=== PATIENT | female | born 1940 | race Caucasian/White ===

== ENCOUNTER 2020-02-19 12:50 | Outpatient (REF) | payer MEDICARE, SELFPAY ==
--- NOTE | 2020-02-19 | MM_ITS ---
EXAMINATION: MM SCREENING DIGITAL BREAST TOMOSYNTHESIS, BILATERAL CLINICAL INFORMATION: Screening. Asymptomatic. The lifetime risk of breast cancer based on the Tyrer-Cuzick Model is 2%. COMPARISON: Mammography: 02/13/2019, 11/19/2017, 11/14/2016 TECHNIQUE: Digital breast tomosynthesis is performed in both the craniocaudal and mediolateral oblique views along with computer-aided detection (CAD). Synthesized 2D images are generated from the tomosynthesis. Additional left cleavage view is provided. FINDINGS: There are scattered areas of fibroglandular density (ACR BI-RADS breast composition Category b). There are no significant masses, abnormal calcifications, or other abnormalities. There is a dermal lesion overlying the outer left breast similar to previous study. There are scattered bilateral vascular and benign round calcifications. No significant changes. IMPRESSION: No mammographic evidence of malignancy. ASSESSMENT: BI-RADS 2: Benign RECOMMENDATION: Routine annual mammography screening. This patient's information was entered into a reminder system with a target due date for their next mammogram.
== END 2020-02-19 12:51 | disposition home or self-care (01) ==
LOC: HO.MAMMO 12:50
PROVIDERS: PCP Internal Medicine; Visit Provider Internal Medicine
DX: Z12.31 Encounter for screening mammogram for malignant neoplasm of breast (principal)
CPT/HCPCS: 77063; 77067; 78014

== ENCOUNTER 2020-07-08 11:27 | Outpatient (REF) | payer MEDICARE, SELFPAY ==
[2020-07-08 13:29] LABS: Alanine Aminotransferase 9 U/L (0-31); Albumin Level 4.2 g/dL (3.5-5.0); Alkaline Phosphatase 116 U/L (39-117); Aspartate Amino Transferase 14 U/L (5-31); Bilirubin Direct 0.3 mg/dL (0.0-0.5); Bilirubin Total 0.8 mg/dL (0.0-1.0); Cholesterol 152 mg/dL; Glucose Fasting 99 mg/dL (60-99); HDL Cholesterol 44 mg/dL; LDL Cholesterol Calculated 92 mg/dl; Total Protein 6.9 g/dL (6.5-8.0); Triglycerides 82 mg/dL
[2020-07-08 13:53] LABS: Estimated Average Glucose 108 mg/dL; Hemoglobin A1c % 5.4 %; Reflex LDLD? No
== END 2020-07-08 11:28 | disposition home or self-care (01) ==
LOC: HO.LNP 11:27
PROVIDERS: PCP Internal Medicine; Visit Provider Internal Medicine
DX: R73.03 Prediabetes (principal)
CPT/HCPCS: 80061; 80076; 82947; 83036

== ENCOUNTER 2020-12-27 11:09 | Outpatient (REF) | payer MEDICARE, SELFPAY ==
[2020-12-27 11:15] LABS: MANUAL DIFF FLAG NO
[2020-12-27 11:41] LABS: Basophils Percent Auto 0.5 % (0-2); Eosinophils Absolute Auto 0.3 X10*3/uL (0.0-0.4); Eosinophils Percent Auto 4.5 % (0-4); Hematocrit 39.7 % (37-47); Hemoglobin 11.8 g/dl (12.0-16.0); Imm Gran Abs Auto 0.02 X10*3/uL (0.00-0.03); Imm Gran Pct Auto 0.3 % (0.0-0.4); Lymphocytes Absolute Auto 1.4 X10*3/uL (1.2-4.9); Lymphocytes Percent Auto 22.2 % (20-40); Mean Corpuscular HGB Conc 29.7 g/dl (31.0-35.0); Mean Corpuscular Hemoglobin 26.7 pg (27.0-33.0); Mean Corpuscular Volume 89.8 fL (80-98); Mean Platelet Volume 10.1 fL (9.4-12.3); Monocytes Absolute Auto 0.6 X10*3/uL (0.1-1.2); Monocytes Percent Auto 8.8 % (2-11); Neutrophils Absolute Auto 4.2 X10*3/uL (2.0-8.3); Neutrophils Percent Auto 63.7 % (45-73); Platelet Count 366 X10*3/uL (160-400); Red Blood Count 4.42 X10*6/uL (4.20-5.50); Red Cell Distribution Width 14.2 % (11.0-16.0); White Blood Count 6.5 X10*3/uL (4.8-10.8)
[2020-12-27 12:04] LABS: Alanine Aminotransferase 9 U/L (0-31); Alkaline Phosphatase 109 U/L (39-117); Anion Gap 13 (12-20); Aspartate Amino Transferase 14 U/L (5-31); Bilirubin Total 0.4 mg/dL (0.0-1.0); Blood Urea Nitrogen 16 mg/dL (9-16); Calcium 9.5 mg/dL (8.4-10.2); Carbon Dioxide 29 mmol/L (22-29); Chloride 104 mmol/L (96-108); Cholesterol 148 mg/dL; Estimated Glomerular Filt Rate > 60; Glucose Fasting 101 mg/dL (60-99); HDL Cholesterol 46 mg/dL; LDL Cholesterol Calculated 83 mg/dl; Potassium 4.6 mmol/L (3.3-5.1); Sodium 141 mmol/L (135-145); Total Protein 6.8 g/dL (6.5-8.0); Triglycerides 95 mg/dL
[2020-12-27 12:14] LABS: Estimated Average Glucose 114 mg/dL; Hemoglobin A1c % 5.6 %
[2020-12-27 12:17] LABS: Vitamin D 25-OH Total 24.8 ng/mL (>30)
[2020-12-27 12:27] LABS: Reflex LDLD? No
[2020-12-27 12:28] LABS: Glucose Urine UA NEG (NEG); Leukocyte Esterase Urine 3+ (NEG); Nitrite Urine NEG (NEG); Specific Gravity - Urine 1.025 (1.005-1.025); Urine Blood TRACE (NEG); Urine Ketones NEG (NEG); Urine Protein NEG (NEG-TRACE)
[2020-12-27 12:40] LABS: Appearance Urine CLOUDY; Color Urine YELLOW
[2020-12-27 12:47] LABS: Microalbum/Creatinine Ratio Ur 20.7 ug/mg cr
[2020-12-27 12:55] LABS: Bacteria Urine 2+ /LPF; Mucus Urine 1+ /LPF; Squamous Epithelial Cell Urine 2+ /LPF; WBC Urine 50-75 /HPF (0-4)
== END 2020-12-27 11:10 | disposition home or self-care (01) ==
LOC: HO.LNP 11:09
PROVIDERS: Visit Provider Internal Medicine
DX: Z00.00 Encounter for general adult medical examination without abnormal findings (principal); R73.03 Prediabetes; E55.9 Vitamin D deficiency, unspecified
CPT/HCPCS: 80053; 80061; 81001; 81003; 82043; 82306; 83036; 85025

== ENCOUNTER 2021-03-03 08:13 | Outpatient (REF) | payer MEDICARE, SELFPAY ==
--- NOTE | ~2021-03-03 | MM_ITS ---
EXAMINATION: BONE DENSITOMETRY CLINICAL INDICATION: Osteoporosis. COMPARISON: Previous BD dated 02/04/2019 and baseline BD dated 03/31/2011. TECHNIQUE: Using a [employer] DXA System (software version: 13.1) manufactured by [employer], dual-energy x-ray absorptiometry was performed of the lumbar spine and left hip. The images are of good technical quality. Summary results are attached. FINDINGS: AP SPINE L1-L4: Current: BMD 0.908 g/cm2, Z-score -0.2, T-score -2.3, osteopenia, 5.9% decrease from previous, 5.6% decrease from baseline (<5% change is not significant). Prior: BMD 0.965 g/cm2. Baseline: BMD 0.962 g/cm2. LEFT FEMUR, NECK: Current: BMD 0.533 g/cm2, Z-score -1.3, T-score -3.6, osteoporosis. Prior: BMD 0.632 g/cm2. Baseline: BMD 0.683 g/cm2. LEFT FEMUR, TOTAL: Current: BMD 0.605 g/cm2, Z-score -1.0, T-score -3.2, osteoporosis, 13.4% decrease from previous, 24.0% decrease from baseline (<5% change is not significant). Prior: BMD 0.699 g/cm2. Baseline: BMD 0.796 g/cm2. IDENTIFIED RISK FACTORS: Early menopause, secondary osteoporosis, hysterectomy, bilateral oophorectomy. HISTORY OF FRACTURE: None listed. MEDICATIONS: None listed. MM/XR DEXA axial skeleton IMPRESSION: 1. DIAGNOSIS: Osteoporosis based on the lowest T-score value of -3.6 in the femoral neck applying World Health Organization criteria. 2. 10-YEAR FRACTURE RISK PREDICTION, FRAX: Major osteoporotic fracture (clinical spine, forearm, hip or shoulder) 32.8%. Hip fracture 16.3%. 3. Treatment Recommendations: NOF guidelines recommend consideration for treatment in postmenopausal women and men age 50 and older presenting with the following: -A hip or vertebral (clinical or morphometric) fracture. -T-score less than or equal to -2.5 at the femoral neck or spine after appropriate evaluation to exclude secondary causes. -Low bone mass at the hip or spine and a 10-year fracture probability by FRAX of greater than or equal to 3% for hip fracture or greater than or equal to 20% for major osteoporotic fracture based on the [place] adapted WHO algorithm. 4. Other Recommendations: All treatment decisions require clinical judgment and consideration of individual patient factors, including patient preferences, comorbidities, previous drug use, risk factors not captured in the FRAX model (e.g. frailty, falls, vitamin D deficiency, increased bone turnover, interval significant decline in bone density) and possible under or overestimation of fracture risk by FRAX. Additional medical evaluation for secondary cause of low bone mineral density may be appropriate. FUTURE SCAN RECOMMENDATION: People with diagnosed cases of osteoporosis or at high risk for fracture should have regular bone mineral density tests. For patients eligible for Medicare, routine testing is allowed once every 2 years. The testing frequency can be increased to one year for patients who have rapidly progressing disease, those who are receiving or discontinuing medical therapy to restore bone mass, or have additional risk factors.
--- NOTE | ~2021-03-03 | MM_ITS ---
EXAMINATION: MM SCREENING DIGITAL BREAST TOMOSYNTHESIS, BILATERAL CLINICAL INFORMATION: Screening. Asymptomatic. The lifetime risk of breast cancer based on the Tyrer-Cuzick Model is 1%. COMPARISON: Mammography: 02/19/2020, 02/13/2019, 11/19/2017 TECHNIQUE: Digital breast tomosynthesis is performed in both the craniocaudal and mediolateral oblique views along with computer-aided detection (CAD). Synthesized 2D images are generated from the tomosynthesis. Additional left CC view is provided. FINDINGS: There are scattered areas of fibroglandular density (ACR BI-RADS breast composition Category b). Parenchymal pattern is similar to prior studies. There is no interval mass or developing density or architectural abnormality. There is a probable faint dermal lesion overlying the lower outer left breast similar to prior studies. Small circumscribed nodular asymmetry anterior upper right breast on MLO view is also stable. The axilla are unremarkable. There are scattered benign round and vascular calcifications. No significant changes. MM/MM tomosynthesis screening BI IMPRESSION: No mammographic evidence of malignancy. ASSESSMENT: BI-RADS 2: Benign RECOMMENDATION: Routine annual mammography screening. This patient's information was entered into a reminder system with a target due date for their next mammogram.
== END 2021-03-03 08:14 | disposition home or self-care (01) ==
LOC: HO.MAMMO 08:13
PROVIDERS: Visit Provider Internal Medicine
DX: Z12.31 Encounter for screening mammogram for malignant neoplasm of breast (principal); Z13.820 Encounter for screening for osteoporosis; M81.0 Age-related osteoporosis without current pathological fracture; Z78.0 Asymptomatic menopausal state; Z98.890 Other specified postprocedural states
CPT/HCPCS: 77063; 77067; 77080

== ENCOUNTER 2021-07-01 10:47 | Outpatient (REF) | payer MEDICARE, SELFPAY ==
[2021-07-01 12:23] LABS: Estimated Average Glucose 114 mg/dL; Hemoglobin A1c % 5.6 %
[2021-07-01 12:26] LABS: Alanine Aminotransferase 7 U/L (0-31); Albumin Level 3.9 g/dL (3.5-5.0); Alkaline Phosphatase 107 U/L (39-117); Aspartate Amino Transferase 14 U/L (5-31); Bilirubin Direct 0.3 mg/dL (0.0-0.5); Bilirubin Total 0.6 mg/dL (0.0-1.0); Cholesterol 149 mg/dL; Glucose Fasting 99 mg/dL (60-99); HDL Cholesterol 46 mg/dL; LDL Cholesterol Calculated 88 mg/dl; Total Protein 6.7 g/dL (6.5-8.0); Triglycerides 79 mg/dL
[2021-07-01 13:28] LABS: Reflex LDLD? No
== END 2021-07-01 10:48 | disposition home or self-care (01) ==
LOC: HO.LNP 10:47
PROVIDERS: Visit Provider Internal Medicine
DX: R73.03 Prediabetes (principal)
CPT/HCPCS: 80061; 80076; 82947; 83036

== ENCOUNTER 2022-02-06 14:53 | Outpatient (REF) | payer MEDICARE, SELFPAY ==
[2022-02-06 15:25] LABS: MANUAL DIFF FLAG NO
[2022-02-06 15:31] LABS: Basophils Percent Auto 0.4 % (0-2); Eosinophils Absolute Auto 0.2 X10*3/uL (0.0-0.4); Eosinophils Percent Auto 3.1 % (0-4); Hemoglobin 11.5 g/dl (12.0-16.0); Imm Gran Abs Auto 0.01 X10*3/uL (0.00-0.03); Imm Gran Pct Auto 0.1 % (0.0-0.4); Lymphocytes Absolute Auto 1.2 X10*3/uL (1.2-4.9); Lymphocytes Percent Auto 16.6 % (20-40); Mean Corpuscular HGB Conc 31.1 g/dl (31.0-35.0); Mean Corpuscular Hemoglobin 27.2 pg (27.0-33.0); Mean Corpuscular Volume 87.5 fL (80.0-98.0); Mean Platelet Volume 9.3 fL (9.4-12.3); Monocytes Absolute Auto 0.6 X10*3/uL (0.1-1.2); Monocytes Percent Auto 7.7 % (2-11); Neutrophils Absolute Auto 5.3 x10*3/uL (2.0-8.3); Neutrophils Percent Auto 72.1 % (45-73); Platelet Count 294 X10*3/uL (160-400); Red Blood Count 4.23 X10*6/uL (4.20-5.50); Red Cell Distribution Width 13.8 % (11.0-16.0); White Blood Count 7.4 X10*3/uL (4.8-10.8)
[2022-02-06 15:44] LABS: Estimated Average Glucose 114 mg/dL; Hemoglobin A1c % 5.6 %
[2022-02-06 15:55] LABS: Alanine Aminotransferase 10 U/L (0-31); Alkaline Phosphatase 112 U/L (39-117); Anion Gap 14 (12-20); Aspartate Amino Transferase 17 U/L (5-31); Bilirubin Total 0.6 mg/dL (0.0-1.0); Blood Urea Nitrogen 21 mg/dL (9-16); Calcium 9.4 mg/dL (8.4-10.2); Carbon Dioxide 27 mmol/L (22-29); Chloride 102 mmol/L (96-108); Cholesterol 143 mg/dL; Estimated Glomerular Filt Rate > 60; Glucose Random 98 mg/dL (60-115); HDL Cholesterol 46 mg/dL; LDL Cholesterol Calculated 79 mg/dl; Potassium 4.4 mmol/L (3.3-5.1); Sodium 139 mmol/L (135-145); Total Protein 6.7 g/dL (6.5-8.0); Triglycerides 93 mg/dL
[2022-02-06 16:16] LABS: Vitamin D 25-OH Total 27.9 ng/mL (>30)
[2022-02-06 16:16] LABS: Appearance Urine Clear; Color Urine Yellow; Glucose Urine UA Negative (Negative); Leukocyte Esterase Urine Small (1+) (Negative); Nitrite Urine Negative (Negative); PH 5.5 (5.0-9.0); Specific Gravity - Urine 1.025 (1.005-1.025); UMIC TRIGGER UA YES; Urine Blood Negative (Negative); Urine Ketones Negative (Negative); Urine Protein Trace mg/dL (Neg-Trace)
[2022-02-06 16:36] LABS: Creatinine Urine 151.81 mg/dL; Microalbum/Creatinine Ratio Ur 7.9 ug/mg cr
[2022-02-06 17:11] LABS: Bacteria Urine None Seen (None Seen); Hyaline Casts Urine 0-2 /LPF (0-2); Squamous Epithelial Cell Urine 0-2 /HPF (0-2); WBC Urine 0-5 /HPF (0-5)
== END 2022-02-06 14:54 | disposition home or self-care (01) ==
LOC: HO.LAB 14:53
PROVIDERS: PCP Internal Medicine; Visit Provider Internal Medicine
DX: Z00.00 Encounter for general adult medical examination without abnormal findings (principal); R73.03 Prediabetes; R09.89 Other specified symptoms and signs involving the circulatory and respiratory systems; E55.9 Vitamin D deficiency, unspecified
CPT/HCPCS: 36415; 80053; 80061; 81001; 81003; 82043; 82306; 83036; 85025

== ENCOUNTER 2022-03-06 09:17 | Outpatient (REF) | payer MEDICARE, SELFPAY ==
--- NOTE | ~2022-03-06 | MM_ITS ---
EXAMINATION: MM SCREENING DIGITAL BREAST TOMOSYNTHESIS, BILATERAL CLINICAL INFORMATION: Screening. Asymptomatic. COMPARISON: Mammography: 03/03/2021, 02/19/2020, 02/13/2019, 11/19/2017 TECHNIQUE: Digital breast tomosynthesis is performed in both the craniocaudal and mediolateral oblique views along with computer-aided detection (CAD). Synthesized 2D images are generated from the tomosynthesis. FINDINGS: There are scattered areas of fibroglandular density (ACR BI-RADS breast composition Category b). There are no significant masses, abnormal calcifications, or other abnormalities. No developing density or architectural abnormality. There is chronic bilateral nipple retraction similar to prior studies. MM/MM tomosynthesis screening BI IMPRESSION: No mammographic evidence of malignancy. ASSESSMENT: BI-RADS 2: Benign RECOMMENDATION: Routine annual mammography screening. This patient's information was entered into a reminder system with a target due date for their next mammogram.
== END 2022-03-06 09:18 | disposition home or self-care (01) ==
LOC: HO.MAMMO 09:17
PROVIDERS: PCP Internal Medicine; Visit Provider Internal Medicine
DX: Z12.31 Encounter for screening mammogram for malignant neoplasm of breast (principal)
CPT/HCPCS: 77063; 77067

== ENCOUNTER 2022-08-08 11:47 | Outpatient (REF) | payer MEDICARE, SELFPAY ==
[2022-08-08 12:22] LABS: Estimated Average Glucose 108 mg/dL; Hemoglobin A1c % 5.4 %
[2022-08-08 12:57] LABS: Alanine Aminotransferase 7 U/L (0-31); Albumin Level 3.7 g/dL (3.5-5.0); Alkaline Phosphatase 109 U/L (39-117); Aspartate Amino Transferase 14 U/L (5-31); Bilirubin Direct 0.3 mg/dL (0.0-0.5); Bilirubin Total 0.8 mg/dL (0.0-1.0); Cholesterol 152 mg/dL; Glucose Fasting 105 mg/dL (60-99); HDL Cholesterol 47 mg/dL; LDL Cholesterol Calculated 91 mg/dl; Total Protein 6.5 g/dL (6.5-8.0); Triglycerides 71 mg/dL
[2022-08-08 14:28] LABS: Reflex LDLD? No
== END 2022-08-08 11:48 | disposition home or self-care (01) ==
LOC: HO.LNP 11:47
PROVIDERS: Visit Provider Internal Medicine
DX: R73.03 Prediabetes (principal); E78.00 Pure hypercholesterolemia, unspecified
CPT/HCPCS: 80061; 80076; 82947; 83036

== ENCOUNTER 2023-03-13 13:06 | Outpatient (REF) | payer MEDICARE, SELFPAY | END 2023-03-13 13:07 | disposition home or self-care (01) | LOC: HO.MAMMO 13:06 | PROVIDERS: Visit Provider Internal Medicine | DX: Z12.31 Encounter for screening mammogram for malignant neoplasm of breast (principal) | CPT/HCPCS: 77063; 77067 ==

== ENCOUNTER → 2023-03-13 13:30 | Outpatient (BNV) | payer MEDICARE, SELFPAY | PROVIDERS: Visit Provider Radiology Diagnostic Radiology | DX: Z12.31 Encounter for screening mammogram for malignant neoplasm of breast (principal) | CPT/HCPCS: 77063; 77067 ==

== ENCOUNTER 2023-03-16 12:26 | Outpatient (REF) | payer MEDICARE, SELFPAY ==
[2023-03-16 12:31] LABS: MANUAL DIFF FLAG NO
[2023-03-16 12:49] LABS: Basophils Percent Auto 0.5 % (0-2); Eosinophils Absolute Auto 0.5 X10*3/uL (0.0-0.4); Hematocrit 38.3 % (37.0-47.0); Hemoglobin 11.7 g/dl (12.0-16.0); Imm Gran Abs Auto 0.01 X10*3/uL (0.00-0.03); Imm Gran Pct Auto 0.2 % (0.0-0.4); Lymphocytes Absolute Auto 1.4 X10*3/uL (1.2-4.9); Lymphocytes Percent Auto 24.5 % (20-40); Mean Corpuscular HGB Conc 30.5 g/dl (31.0-35.0); Mean Corpuscular Hemoglobin 27.8 pg (27.0-33.0); Mean Platelet Volume 10.6 fL (9.4-12.3); Monocytes Absolute Auto 0.5 X10*3/uL (0.1-1.2); Monocytes Percent Auto 8.6 % (2-11); Neutrophils Absolute Auto 3.2 x10*3/uL (2.0-8.3); Neutrophils Percent Auto 57.2 % (45-73); Platelet Count 331 X10*3/uL (160-400); Red Blood Count 4.21 X10*6/uL (4.20-5.50); White Blood Count 5.7 X10*3/uL (4.8-10.8)
[2023-03-16 12:51] LABS: Appearance Urine Hazy; Color Urine Yellow; Glucose Urine UA Negative (Negative); Leukocyte Esterase Urine Moderate (2+) (Negative); Nitrite Urine Negative (Negative); PH 5.5 (5.0-9.0); Specific Gravity - Urine >= 1.030 (1.005-1.025); UMIC TRIGGER UACC YES; Urine Blood Moderate (2+) (Negative); Urine Ketones Negative (Negative); Urine Protein Trace mg/dL (Neg-Trace)
[2023-03-16 13:15] LABS: Bacteria Urine 1+ (None Seen); WBC Urine 21-50 /HPF (0-5)
[2023-03-16 13:16] LABS: UACC Culture Trigger YES
[2023-03-16 13:29] LABS: Estimated Average Glucose 105 mg/dL; Hemoglobin A1c % 5.3 % (<6.0)
[2023-03-16 13:33] LABS: Creatinine Urine 185.63 mg/dL
[2023-03-16 14:32] LABS: Alanine Aminotransferase 9 U/L (0-31); Alkaline Phosphatase 103 U/L (39-117); Anion Gap 13 (12-20); Aspartate Amino Transferase 18 U/L (5-31); Bilirubin Total 0.6 mg/dL (0.0-1.0); Blood Urea Nitrogen 21 mg/dL (9-16); Calcium 9.8 mg/dL (8.4-10.2); Carbon Dioxide 27 mmol/L (22-29); Chloride 106 mmol/L (96-108); Cholesterol 149 mg/dL (<200); Estimated Glomerular Filt Rate > 60; Glucose Fasting 93 mg/dL (60-99); HDL Cholesterol 52 mg/dL (>40); LDL Cholesterol Calculated 79 mg/dL (<100); Sodium 142 mmol/L (135-145); Total Protein 7.1 g/dL (6.5-8.0); Triglycerides 92 mg/dL (<150)
[2023-03-16 14:54] LABS: Vitamin D 25-OH Total 27.5 ng/mL (>30)
== END 2023-03-16 12:27 | disposition home or self-care (01) ==
LOC: HO.LNP 12:26
PROVIDERS: Visit Provider Internal Medicine
DX: Z00.00 Encounter for general adult medical examination without abnormal findings (principal); R73.03 Prediabetes; E78.00 Pure hypercholesterolemia, unspecified; E55.9 Vitamin D deficiency, unspecified; I10 Essential (primary) hypertension
CPT/HCPCS: 80053; 80061; 81001; 82043; 82306; 82570; 83036; 85025; 87086

== ENCOUNTER 2023-04-02 11:09 | Outpatient (REF) | payer MEDICARE, SELFPAY ==
[2023-04-02 11:40] LABS: Appearance Urine Cloudy; Color Urine Yellow; Glucose Urine UA Negative (Negative); Leukocyte Esterase Urine Large (3+) (Negative); Nitrite Urine Negative (Negative); PH 5.5 (5.0-9.0); UMIC TRIGGER UACC YES; Urine Blood Trace (Negative); Urine Ketones Negative (Negative); Urine Protein Negative (Neg-Trace)
[2023-04-02 11:43] LABS: Bacteria Urine 2+ (None Seen); RBC Urine 0-2 /HPF (0-2); UACC Culture Trigger YES; WBC Urine >50 /HPF (0-5)
== END 2023-04-02 11:10 | disposition home or self-care (01) ==
LOC: HO.LNP 11:09
PROVIDERS: Visit Provider Internal Medicine
DX: R31.9 Hematuria, unspecified (principal)
CPT/HCPCS: 81001; 87086

== ENCOUNTER 2023-05-01 11:12 | Outpatient (REF) | payer MEDICARE, SELFPAY ==
[2023-05-01 11:56] LABS: Appearance Urine Clear; Color Urine Yellow; Glucose Urine UA Negative (Negative); Leukocyte Esterase Urine Moderate (2+) (Negative); Nitrite Urine Negative (Negative); PH 5.5 (5.0-9.0); UMIC TRIGGER UACC YES; Urine Blood Negative (Negative); Urine Ketones Negative (Negative); Urine Protein Negative (Neg-Trace)
[2023-05-01 12:02] LABS: Bacteria Urine Trace (None Seen); Hyaline Casts Urine 0-2 /LPF (0-2); RBC Urine 0-2 /HPF (0-2); Squamous Epithelial Cell Urine 0-2 /HPF (0-2); UACC Culture Trigger YES; WBC Urine 21-50 /HPF (0-5)
== END 2023-05-01 11:13 | disposition home or self-care (01) ==
LOC: HO.LNP 11:12
PROVIDERS: Visit Provider Internal Medicine
DX: R31.9 Hematuria, unspecified (principal)
CPT/HCPCS: 81001; 87086

== ENCOUNTER 2023-09-21 11:36 | Outpatient (REF) | payer MEDICARE, SELFPAY ==
[2023-09-21 12:23] LABS: Estimated Average Glucose 111 mg/dL; Hemoglobin A1c % 5.5 % (<6.0)
[2023-09-21 13:03] LABS: Alanine Aminotransferase 10 U/L (0-31); Albumin Level 3.9 g/dL (3.5-5.0); Alkaline Phosphatase 113 U/L (39-117); Aspartate Amino Transferase 17 U/L (5-31); Bilirubin Direct 0.2 mg/dL (0.0-0.5); Bilirubin Total 0.5 mg/dL (0.0-1.0); Cholesterol 156 mg/dL (<200); Glucose Fasting 97 mg/dL (60-99); HDL Cholesterol 53 mg/dL (>40); LDL Cholesterol Calculated 86 mg/dL (<100); Total Protein 7.1 g/dL (6.5-8.0); Triglycerides 89 mg/dL (<150)
[2023-09-21 13:58] LABS: Reflex LDLD? No
== END 2023-09-21 11:37 | disposition home or self-care (01) ==
LOC: HO.LNP 11:36
PROVIDERS: Visit Provider Internal Medicine
DX: R73.03 Prediabetes (principal); E78.00 Pure hypercholesterolemia, unspecified
CPT/HCPCS: 80061; 80076; 82947; 83036

== ENCOUNTER 2024-03-14 12:58 | Outpatient (REF) | payer MEDICARE, SELFPAY ==
--- NOTE | ~2024-03-14 | MM_ITS ---
EXAMINATION: MM SCREENING DIGITAL BREAST TOMOSYNTHESIS, BILATERAL CLINICAL INFORMATION: Screening. Asymptomatic. COMPARISON: Mammography: Comparison is made with available priors TECHNIQUE: Digital breast mammography with tomosynthesis is performed in both the craniocaudal and mediolateral oblique views along with computer-aided detection (CAD). FINDINGS: There are scattered areas of fibroglandular density (ACR BI-RADS breast composition Category b). There are no significant masses, abnormal calcifications, or other abnormalities. MM/MM tomosynthesis screening BI IMPRESSION: No mammographic evidence of malignancy. ASSESSMENT: BI-RADS BI-RADS 1 - Negative RECOMMENDATION: Routine annual mammography screening. 1 year F/U This examination should not preclude the clinical evaluation of a suspicious palpable abnormality. This patient's information was entered into a reminder system with a target due date for their next mammogram. Electronically signed by: Renuka Canas DO 03/24/2024 08:51 AM CYNDI
== END 2024-03-14 12:59 | disposition home or self-care (01) ==
LOC: HO.MAMMO 12:58
PROVIDERS: PCP Internal Medicine; Visit Provider Internal Medicine
DX: Z12.31 Encounter for screening mammogram for malignant neoplasm of breast (principal)
CPT/HCPCS: 77063; 77067

== ENCOUNTER → 2024-03-14 13:00 | Outpatient (BNV) | payer MEDICARE, SELFPAY | PROVIDERS: PCP Internal Medicine; Visit Provider Internal Medicine | DX: Z12.31 Encounter for screening mammogram for malignant neoplasm of breast (principal) | CPT/HCPCS: 77063; 77067 ==

== ENCOUNTER 2024-03-25 11:49 | Outpatient (REF) | payer MEDICARE, SELFPAY ==
[2024-03-25 11:53] LABS: MANUAL DIFF FLAG NO
[2024-03-25 12:09] LABS: Basophils Percent Auto 0.5 % (0-2); Eosinophils Absolute Auto 0.3 X10*3/uL (0.0-0.4); Eosinophils Percent Auto 5.3 % (0-4); Hematocrit 37.1 % (37.0-47.0); Hemoglobin 11.3 g/dl (12.0-16.0); Imm Gran Abs Auto 0.02 X10*3/uL (0.00-0.03); Imm Gran Pct Auto 0.3 % (0.0-0.4); Lymphocytes Absolute Auto 1.5 X10*3/uL (1.2-4.9); Lymphocytes Percent Auto 24.5 % (20-40); Mean Corpuscular HGB Conc 30.5 g/dl (31.0-35.0); Mean Corpuscular Volume 92.1 fL (80.0-98.0); Mean Platelet Volume 11.2 fL (9.4-12.3); Monocytes Absolute Auto 0.5 X10*3/uL (0.1-1.2); Monocytes Percent Auto 8.8 % (2-11); Neutrophils Absolute Auto 3.7 x10*3/uL (2.0-8.3); Neutrophils Percent Auto 60.6 % (45-73); Platelet Count 283 X10*3/uL (160-400); Red Blood Count 4.03 X10*6/uL (4.20-5.50); Red Cell Distribution Width 13.5 % (11.0-16.0)
[2024-03-25 12:39] LABS: Estimated Average Glucose 111 mg/dL; Hemoglobin A1C 109.5174 umol/L; Hemoglobin A1c % 5.5 % (<6.0); Total Hemoglobin (HGBA1C) 2990.1833 umol/L
[2024-03-25 12:42] LABS: Appearance Urine Clear; Color Urine Yellow; Glucose Urine UA Negative (Negative); Leukocyte Esterase Urine Moderate (2+) (Negative); Nitrite Urine Negative (Negative); PH 5.5 (5.0-9.0); Specific Gravity - Urine >= 1.030 (1.005-1.025); UMIC TRIGGER UACC YES; Urine Blood Negative (Negative); Urine Ketones Negative (Negative); Urine Protein Negative (Neg-Trace)
[2024-03-25 12:58] LABS: Alanine Aminotransferase 10 U/L (0-31); Albumin Level 4.1 g/dL (3.5-5.0); Alkaline Phosphatase 103 U/L (39-117); Anion Gap 13 (12-20); Aspartate Amino Transferase 26 U/L (5-31); Bilirubin Total 0.8 mg/dL (0.0-1.0); Blood Urea Nitrogen 23 mg/dL (9-16); Calcium 9.6 mg/dL (8.4-10.2); Carbon Dioxide 26 mmol/L (22-29); Chloride 104 mmol/L (96-108); Cholesterol 151 mg/dL (<200); Estimated Glomerular Filt Rate > 60; Glucose Fasting 89 mg/dL (60-99); HDL Cholesterol 52 mg/dL (>40); LDL Cholesterol Calculated 83 mg/dL (<100); Potassium 4.1 mmol/L (3.3-5.1); Sodium 139 mmol/L (135-145); Triglycerides 84 mg/dL (<150)
[2024-03-25 13:00] LABS: Vitamin D 25-OH Total 22.6 ng/mL (>30)
[2024-03-25 13:03] LABS: Creatinine Urine 189.46 mg/dL
[2024-03-25 13:07] LABS: RBC Urine 0-2 /HPF (0-2); UACC Culture Trigger YES
[2024-03-25 13:08] LABS: Bacteria Urine Trace (None Seen); Hyaline Casts Urine 0-2 /LPF (0-2)
== END 2024-03-25 11:50 | disposition home or self-care (01) ==
LOC: HO.LNP 11:49
PROVIDERS: Visit Provider Internal Medicine
DX: Z00.00 Encounter for general adult medical examination without abnormal findings (principal); R73.03 Prediabetes; E55.9 Vitamin D deficiency, unspecified; E78.00 Pure hypercholesterolemia, unspecified; I10 Essential (primary) hypertension
CPT/HCPCS: 80053; 80061; 81001; 82043; 82306; 82570; 83036; 85025; 87086

== ENCOUNTER 2024-09-23 09:50 | Outpatient (REF) | payer MEDICARE, SELFPAY ==
[2024-09-23 10:53] LABS: Estimated Average Glucose 111 mg/dL; Hemoglobin A1C 114.6439 umol/L; Hemoglobin A1c % 5.5 % (<6.0); Total Hemoglobin (HGBA1C) 3089.4392 umol/L
--- OUTSIDE RECORDS SUMMARY | 2024-09-23 11:04 | XMS_ITS ---
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 Panel Fa st Reviewed date:03/25/2024 05:00:56 PM Interpretation: Performing Lab:[facility], [address] [place] [phone] Notes/Report: Sodium 139 135-145 mmol/L Potassium 4.1 3.3-5.1 mmol/L Chloride 104 96-108 mmol/L Carbon Dioxide 26 22-29 mmol/L Anion Gap 13 12-20 Blood Urea Nitrogen 23 9-16 mg/dL Creatinine 0.82 0.5-1.4 mg/dL Estimated Glomerular Filt Rate > 60 NOTE: For -[place]ong[place] individuals, multiply the result by 1.210. Chronic [...] Panel Reviewed date:03/25/2024 01:27:39 PM Interpretation: Performing Lab:[facility], [address] [place] [phone] Notes/Report: Triglycerides 84 <150 mg/dL Desirable Triglyceride: [...] Total Reviewed date:03/25/2024 04:49:01 PM Interpretation: Performing Lab:[facility], [address] [place] [phone] Notes/Report: Vitamin D 25-OH Total 22.6 >30 [...] Random Reviewed date:03/25/2024 04:57:57 PM Interpretation: Performing Lab:[facility], [address] [place] [phone] Notes/Report: Creatinine Urine 189.46 Microalbumin Urine 19.0 Microalbum/Creatinine Ratio Ur 10.0 <30 ug/mg cr Albumin/Creatinine Ratio Reference Ranges: Normal: < 30 ug/mg creatinine Microalbuminuria: 30 - 300 ug/mg creatinine Clinical Albuminuria: > 300 ug/mg creatinine Hemoglobin A1c Reviewed date:03/25/2024 04:47:04 PM Interpretation: Performing Lab:[facility], [address] [place] [phone] Notes/Report: Hemoglobin A1c % 5.5 <6.0 % [...] average glucose, using the formula of the J4X-Egemepq Average Glucose study (ADAG), Diabetes Care, Vol.31,#8, Dec. 2007 UA ClnCatch+Micro w/rflx Cul t Reviewed date:03/25/2024 04:58:49 PM Interpretation: Performing Lab:[facility], [address] [place] [phone] Notes/Report: Urine, Clean Catch Color Urine Yellow Appearance Urine Clear PH 5.5 5.0-9.0 Glucose Urine UA Negative Negative mg/dL Urine Blood Negative Negative Specific Melbeta - Urine >= 1.030 1.005-1.025 Urine Protein [...] [place] [facility] [address] [place], [place] [id number] 03/25/2024 Juan Quarles Blood tests for rout [...] Of Treatment Next Appt Details Provider Name:Juan Wilson Wenana rosa ier, 09/30/2024 02:00:00 PM, [address] [facility], [address] [facility], [place], [place], [id number], Provider Name:Juan Steve Pérez ier, 04/02/2025 07:00:00 AM, [address], [address], [place], [place], [id number], Provider Name:Juan Steve Pérez ier, 04/07/2025 01:00:00 PM, [address] [facility], [address] [facility], [place], [place], [id number], Progress Notes * Cara OLSONDOB:1940 (84 yo F)Acc No.[id number]:03/25/2024 Progress Note Patient:?Cara OLSON Provider:?Juan Quarles MD :1940???Age:83 Y???Sex:Female D ate:03/25/2024 Address:[address] [place] [address] [id number] Subjective: * Chief Complaints: * ???1. FASTING LABS. * Medical History:? Objective: * Vitals:? Assessment: * Assessment: 1.?Blood tests for routine g eneral physical examination - Z00.00 (Primary)???2.?Prediabetes - R73.03???3.?Vitamin D deficiency - E55.9???4.?Hypercholesteremia - E78.00???5.?Essential hypertension - I10?? 6.?Encounter for immunization - Z23??? Plan: * Treatment: 2.?Prediabetes?LAB: Complete Blood Count Auto Diff (Collection Date & Time - 03/25/2024 08:00 AM) ?LAB: [facility] [place]. Panel Fast (Collection Date & Time - 03/25/2024 08:00 AM) ?LAB: Lipid Panel (Collection Date & Time 03/25/2024 08:00 AM) ?LAB: Vitamin D 25-OH Total (Collection Date & Time 03/25/2024 08:00 AM) ?LAB: Microalbumin, Random (Collection Date & Time 03/25/2024 08:00 AM) ?LAB: Hemoglobin A1c (Collection Date & Time 03/25/2024 08:00 AM) ?LAB: UA ClnCatch+Micro w/rflx Cult (Collection Date & Time - 03/25/2024 08:00 AM) 3.?Vitamin D deficiency?LAB: Complete Blood Count Auto Diff (Collection & Time 03/25/2024 08:00 AM) ?LAB: [facility] [place]. Panel Fast (Collection Date & Time 03/25/2024 08:00 AM) ?LAB: Lipid Panel (Collection Date & Time 03/25/2024 08:00 AM) ?LAB: Vitamin D 25-OH Total (Collection Date & Time 03/25/2024 08:00 AM) ?LAB: Microalbumin, Random (Collection Date & Time 03/25/2024 08:00 AM) ?LAB: Hemoglobin A1c (Collection Date & Time 03/25/2024 08:00 AM) ?LAB: UA ClnCatch+Micro w/rflx Cult (Collection Date & Time 03/25/2024 08:00 AM) 4.?Hypercholesteremia?LAB: Complete Blood Count Auto Diff (Collection Date & Time - 03/25/2024 08:00 AM) ?LAB: [facility] [place]. Panel Fast (Collection Date & Time 03/25/2024 08:00 AM) ?LAB: Lipid Panel (Collection Date & Time - 03/25/2024 08:00 AM) ?LAB: Vitamin D 25-OH Total (Collection Date & Time 03/25/2024 08:00 AM) ?LAB: Microalbumin, Random (Collection Date & Time - 03/25/2024 08:00 AM) ?LAB: Hemoglobin A1c (Collection Date & Time - 03/25/2024 08:00 AM) ?LAB: UA ClnCatch+Micro w/rflx Cult (Collection Date & Time - 03/25/2024 08:00 AM) 5.?Essential hypertension?LAB: Complete Blood Count Auto Diff (Collection Date & Time - 03/25/2024 08:00 AM) ?LAB: [facility] [place]. Panel Fast (Collection Date & Time - 03/25/2024 08:00 AM) ?LAB: Lipid Panel (Collection Date & Time - 03/25/2024 08:00 AM) ?LAB: Vitamin D 25-OH Total (Collection Date & Time - 03/25/2024 08:00 AM) ?LAB: Microalbumin, Random (Collection Date & Time - 03/25/2024 08:00 AM) ?LAB: Hemoglobin A1c (Collection Date & Time - 03/25/2024 08:00 AM) ?LAB: UA ClnCatch+Micro w/rflx Cult (Collection Date & Time - 03/25/2024 08:00 AM) * Immunizations:? Influenza High Dose : 0.5 mL (Dose No:1) (Route: Intramuscular) given by Zoe Boyd , Office Staff on Left Deltoid * Procedure Codes:?24894 VENIP UNCT, ROUTINE*, 87086 FLU VACC PRSV FREE INC ANTIG, G0008 ADMN FLU VAC NO FEE SCHED SAME DAY * * The named appointment provid er may or may not be the originator of this progress note, and it is not deemed complete until electronically signed by the appointment provider. Sign off status: Pending * Provider:?Juan Quarles MD Date:?1 05/25/2023 Generated for Rocky cunningham/Angella/Jeseitting on:?09/23/2024 11:04 AM EDT
--- OUTSIDE RECORDS SUMMARY | 2024-09-23 11:04 | XMS_ITS | Data Portability ---
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 Plan of Treatment Reminders Order Date Submit Date Provider Last Modified By Organization Details Last Modified Time Details Appointments None recorded. Lab fecal occult blood, immunoassa y, stool 2015 016 [facility], [address] [place] [address] [address] [facility], [place], [address], 7 10:08:56 Referral orthopedic referral 2017 018 ATHENAFAX Not available 8 10:00:56 cell liner referral - PER [facility] PORTAL NO AUTH IS NEEDED FOR THIS SPECIALITY . 2016 017 ATHENAFAX Taran [place] DPM, [address], [place], [address], 7 09:16:36 Procedures None recorded. Surgeries None recorded. Imaging XR, knee 2017 018 [place] [facility], [facility], All Locations, [place], [address], 8 10:51:46 XR, knee 2017 018 [place] [facility], [facility], All Locations, [place], [address], 8 17:07:43 XR, foot 2016 017 [facility], [facility], All Locations, [place], [address], 7 22:07:59 XR, ankle 2016 017 [facility], [facility], All Locations, [place], [address], 7 22:08:00 US, duplex, venous, lower extremity 2016 017 [facility], [facility], All Locations, [place], [address], 7 14:56:39 Medication Orders cefuroxime axetil 500 mg tablet 2017 018 [email or web address] [facility], [address] [place] [address], [address], 8 10:05:43 benzonatat e 200 mg capsule 2017 018 [email or web address] [facility], [address] [place] [address], [address], 8 10:05:43 Patient TargetsNo targets recorded. Patient Instructions Encounter Date Encounter Id Patient Instructions Last Modified By Organization Details Last Modified Time 07/07/2015 [id number] starting a weigh t loss plan: care instructions NELLI Not available 10/06/2015 16:56:07 REVIEWED TESTING WITH PT.? QUESTIONS ANSWERED.? F/U SCHEDULED BELOW OR RTC SOONER IF? ? ?ANY PROBLEMS ARISE.? ? ? PT AGREES.? ? ? susana Not available 07/07/2015 11:50:28 04/24/2017 [id number] starting a weigh t loss plan: care instructions NELLI Not available 04/27/2017 11:35:51 Discussed treatment with pt and all questions answered. Advised pt to follow up with our office as scheduled [email or web address] Not available 04/24/2017 13:48:58 05/24/2017 [id number] Discussed treatment with pt and all questions answered. Advised pt to follow up with our office as scheduled [email or web address] Not available 05/24/2017 10:27:25 06/14/2017 [id number] starting a weigh t loss plan: care instructions Not available 06/14/2017 10:34:37 Discussed treatment with pt and all questions answered. Advised pt to follow up with our office as scheduled [email or web address] Not available 06/14/2017 10:35:51 06/19/2017 [id number] bronchitis: care instructions [email or web address] Not available 06/19/2017 11:12:42 Discussed treatment with pt and all questions answered. 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 Referring Physician: [facility], Encounter Date: 04/24/2017 Orthopedic Referral for Oste oarthritis Referring Physician: [facility], Encounter Date: 06/14/2017 Results Created Date Observation Date Name Description Value Unit Range Abnormal Flag Note LastModifiedBy Organization Detail LastModifiedTime 07/01/19 16 07/03/2015 urina lysis , micro scopi c WBC 6-10 /hpf 0 - 5 abnormal Not Available [facility] [address] [place], [address], 07/04/2015 00:38:24 07/01/19 16 07/03/2015 urina lysis , micro scopi c RBC 0-2 /hpf 0 - 2 Not Available [facility] [address] [place], [address], 07/04/2015 00:38:24 07/01/19 16 07/03/2015 urina lysis , micro scopi c epithelial cells (non renal) >10 /hpf 0 - 10 abnormal Not Available [facility] [address], [place], [address], 07/04/2015 00:38:24 07/01/19 16 07/03/2015 urina lysis , micro scopi c mucus threads Presen t not estab. Not Available [facility] [address] [place], [place] [address]y [address], [place], [address], 07/04/2015 00:38:24 07/01/19 16 07/03/2015 urina lysis , micro scopi c bacteria Many none seen/f ew abnormal Not Available [facility] [address], [place], [address], 07/04/2015 00:38:24 07/01/19 16 07/03/2015 urina lysis , compl ete specific gravity 1.025 1.005- 1.030 Not Available [facility] [address] [place] [address]y [address], [place], [address], 07/04/2015 00:38:24 07/01/19 16 07/03/2015 urina lysis , compl ete RBC 0-2 /hpf 0 - 2 Not Available [facility] [address] [place] [address]y [address], [place], [address], 07/04/2015 00:38:24 07/01/19 16 07/03/2015 urina lysis , compl ete pH 5.5 5.0-7. 5 Not Available [facility] [address] [place], [place] [address]y [address], [place], [address], 07/04/2015 00:38:24 07/01/19 16 07/03/2015 urina lysis , compl ete epithelial cells (non renal) >10 /hpf 0 - 10 abnormal Not Available [facility] [address] [place] [address]y [address], [place], [address], 07/04/2015 00:38:24 07/01/19 16 07/03/2015 urina lysis , compl ete urine-color Yellow yellow Not Available [facility] [address] [facility] [address], [place], [address], 07/04/2015 00:38:24 07/01/19 16 07/03/2015 urina lysis , compl ete appearance Clear clear Not Available [facility] [address] [facility] [address], [place], [address], 07/04/2015 00:38:24 07/01/19 16 07/03/2015 urina lysis , compl ete WBC esterase 2+ negati ve abnormal Not Available [facility] [address] [facility] [address], [place], [address], 07/04/2015 00:38:24 07/01/19 16 07/03/2015 urina lysis , compl ete protein Negati ve negati ve/tra ce Not Available [facility] [address] [place], [place] [address]y [address], [place], [address], 07/04/2015 00:38:24 07/01/19 16 07/03/2015 urina lysis , compl ete glucose Negati ve negati ve Not Available [facility] [address] [place], [place] [address]y [address], [place], [address], 07/04/2015 00:38:24 07/01/19 16 07/03/2015 urina lysis , compl ete mucus threads Presen t not estab. Not Available [facility] [address] [facility] [address], [place], [address], 07/04/2015 00:38:24 07/01/19 16 07/03/2015 urina lysis , compl ete ketones Negati ve negati ve Not Available [facility] [address] [facility] [address], [place], [address], 07/04/2015 00:38:24 02/11/20 16 07/03/2015 urina lysis , compl ete bacteria Many none seen/f ew abnormal Not Available [facility] [address] [facility] [address] [facility], [place], [address], 07/04/2015 00:38:24 07/01/19 16 07/03/2015 urina lysis , compl ete occult blood Negati ve negati ve Not Available [facility] [address] [place] [address] [address], [place], [address], 07/04/2015 00:38:24 07/01/19 16 07/03/2015 urina lysis , compl ete bilirubin Negati ve negati ve Not Available [facility] [address] [place] [address] [address], [place], [address], 07/04/2015 00:38:24 07/01/19 16 07/03/2015 urina lysis , compl ete urobilinogen ,semi-qn 0.2 mg/dL 0.2-1. 0 Not Available [facility] [address] [place] [address] [address] [place], [address], 07/04/2015 00:38:24 07/01/19 16 07/03/2015 urina lysis , compl ete nitrite, urine Negati ve negati ve Not Available [facility] [address] [place] [address], [address], 07/04/2015 00:38:24 07/01/19 16 07/03/2015 urina lysis , compl ete microscopic examination See below: Micro scopi c was indic ated and was perfo rmed. Not Available [facility] [address] [facility], [place], [address], 07/04/2015 00:38:24 07/01/19 16 07/03/2015 urina lysis , compl ete urinalysis reflex Commen t This speci men has refle xed to a Urine Cultu re. Not Available [facility] [address] [facility] [address], [place], [address], 07/04/2015 00:38:24 07/01/19 16 07/03/2015 CMP, serum or plasm a glucose, serum 104 mg/dL 65-99 high Not Available [facility] [address] [place], [place] [address]y [address], [place], [address], 07/04/2015 00:38:25 07/01/19 16 07/03/2015 CMP, serum or plasm a BUN 17 mg/dL 8-27 Not Available [facility] [address] [facility] [address], [place], [address], 07/04/2015 00:38:25 07/01/19 16 07/03/2015 CMP, serum or plasm a creatinine, serum 0.65 mg/dL 0.57-1 .00 Not Available [facility] [address] [place], [place] [address]y [address], [place], [address], 07/04/2015 00:38:25 07/01/19 16 07/03/2015 CMP, serum or plasm a eGFR if nonafricn AM 87 mL/mi n/1.7 3 >59 Not Available [facility] [address] [place] [address] [address] [place], [address], 07/04/2015 00:38:25 07/01/19 16 07/03/2015 CMP, serum or plasm a eGFR if africn AM 100 mL/mi n/1.7 3 >59 Not Available [facility] [address] [facility] [address], [place], [address], 07/04/2015 00:38:25 07/01/19 16 07/03/2015 CMP, serum or plasm a BUN/creatini ne ratio 26 11-26 Not Available [facility] [address] [facility] [address], [place], [address], 07/04/2015 00:38:25 07/01/19 16 07/03/2015 CMP, serum or plasm a sodium, serum 143 mmol/ L 134-14 4 Not Available [facility] [address], [place], [address], 07/04/2015 00:38:25 07/01/19 16 07/03/2015 CMP, serum or plasm a potassium, serum 4.4 mmol/ L 3.5-5. 2 Not Available [facility] [address], [place], [address], 07/04/2015 00:38:25 07/01/1907/03/2015 CMP, serum or plasm a chloride, serum 103 mmol/ L 97-108 Not Available [facility] [address] [place], [place] [address]y [address], [place], [address], 07/04/2015 00:38:25 07/01/1907/03/2015 CMP, serum or plasm a carbon dioxide, total 24 mmol/ L 18-29 Not Available [facility] [address] [place], [place] [address]y [address], [place], [address], 07/04/2015 00:38:25 07/01/19 16 07/03/2015 CMP, serum or plasm a calcium, serum 9.3 mg/dL 8.7-10 .3 Not Available [facility] [address] [place], [place] [address]y [address] [place], [address], 07/04/2015 00:38:25 07/01/1907/03/2015 CMP, serum or plasm a protein, total, serum 6.4 g/dL 6.0-8. 5 Not Available [facility] [address], [place], [address], 07/04/2015 00:38:25 07/01/1907/03/2015 CMP, serum or plasm a albumin, serum 4.1 g/dL 3.5-4. 8 Not Available [facility] [address] [place] [address] [address] [place], [address], 07/04/2015 00:38:25 07/01/19 16 07/03/2015 CMP, serum or plasm a globulin, total 2.3 g/dL 1.5-4. 5 Not Available [facility] [address] [place] [address] [address] [place], [address], 07/04/2015 00:38:25 07/01/19 16 07/03/2015 CMP, serum or plasm a A/G ratio 1.8 1.1-2. 5 Not Available [facility] [address] [place] [address] [address] [place], [address], 07/04/2015 00:38:25 07/01/19 16 07/03/2015 CMP, serum or plasm a bilirubin, total 0.4 mg/dL 0.0-1. 2 Not Available [facility] [address] [place] [address], [address], 07/04/2015 00:38:25 07/01/19 16 07/03/2015 CMP, serum or plasm a alkaline phosphatase, S 90 IU/L 39-117 Not Available [facility] [address] [place] [address], [address], 07/04/2015 00:38:25 07/01/19 16 07/03/2015 CMP, serum or plasm a AST (SGOT) 15 IU/L 0-40 Not Available [facility] [address] [place] [address], [address], 07/04/2015 00:38:25 07/01/19 16 07/03/2015 CMP, serum or plasm a ALT (SGPT) 9 IU/L 0-32 Not Available [facility] [address] [place] [address], [place], [address], 07/04/2015 00:38:25 07/01/19 16 07/03/2015 lipid panel , serum cholesterol, total 205 mg/dL 100-19 9 high Not Available [facility] [address] [facility] [address] [place], [address], 07/04/2015 00:38:25 07/01/19 16 07/03/2015 lipid panel , serum triglyceride s 171 mg/dL 0-149 high Not Available [facility] [address] [facility] [address] [facility], [place], [address], 07/04/2015 00:38:25 07/01/19 16 07/03/2015 lipid panel , serum HDL cholesterol 43 mg/dL >39 Accor ding to ATP-I II Guide lines , HDL-C >59 mg/dL is consi dered a negat curtis risk facto r for CHD. Not Available [facility] [address], [place], [address], 07/04/2015 00:38:25 07/01/19 16 07/03/2015 lipid panel , serum LDL cholesterol calc 128 mg/dL 0-99 high Not Available [facility] [address], [address], 07/04/2015 00:38:25 07/01/19 16 07/03/2015 lipid panel , serum T. chol/HDL ratio 4.8 ratio _unit s 0.0-4. 4 high T. Chol/ HDL Ratio Men Women 1/2 Avg.R isk 3.4 3.3 Avg.R isk 5.0 4.4 2X Avg.R isk 9.6 7.1 3X Avg.R isk 23.4 11.0 Not Available [facility] [address], [address], 07/04/2015 00:38:25 07/01/19 16 07/03/2015 lipid panel , serum LDL/HDL ratio 3.0 ratio _unit s 0.0-3. 2 LDL/H DL Ratio Men Women 1/2 Avg.R isk 1.0 1.5 Avg.R isk 3.6 3.2 2X Avg.R isk 6.2 5.0 3X Avg.R isk 8.0 6.1 Not Available [facility] [address] [facility] [address] [place], [address], 07/04/2015 00:38:25 07/01/19 16 07/03/2015 lipid panel , serum LDL chol. (direct) 143 mg/dL 0-99 high Not Available [facility] [address] [place] [address] [address] [place], [address], 07/04/2015 00:38:25 07/01/19 16 07/03/2015 T4, free, serum T4,free(dire ct) 1.01 NG/dL 0.82-1 .77 Not Available [facility] [address] [place], [address], 07/04/2015 00:38:25 07/01/19 16 07/03/2015 TSH, serum or plasm a TSH 3.830 uIU/m L 0.450- 4.500 Not Available [facility] [address] [place] [address] [address] [place], [address], 07/04/2015 00:38:26 07/01/19 16 07/03/2015 CBC WBC 6.3 x10e3 /uL 3.4-10 .8 Not Available [facility] [address] [place] [address] [address] [place], [address], 07/04/2015 00:38:26 07/01/19 16 07/03/2015 CBC RBC 4.76 x10e6 /uL 3.77-5 .28 Not Available [facility] [address] [place] [address] [address], [place], [address], 07/04/2015 00:38:26 07/01/19 16 07/03/2015 CBC hemoglobin 13.5 g/dL 11.1-1 5.9 Not Available [facility] [address], [place], [address], 07/04/2015 00:38:26 07/01/19 16 07/03/2015 CBC hematocrit 40.3 % 34.0-4 6.6 Not Available [facility] [address], [place], [address], 07/04/2015 00:38:26 07/01/19 16 07/03/2015 CBC MCV 85 fL 79-97 Not Available [facility], [place], [address], 07/04/2015 00:38:26 07/01/19 16 07/03/2015 CBC MCH 28.4 pg 26.6-3 3.0 Not Available [facility] [address], [place], [address], 07/04/2015 00:38:26 07/01/19 16 07/03/2015 CBC MCHC 33.5 g/dL 31.5-3 5.7 Not Available [facility] [address], [place], [address], 07/04/2015 00:38:26 07/01/19 16 07/03/2015 CBC RDW 13.9 % 12.3-1 5.4 Not Available [facility] [address], [place], [address], 07/04/2015 00:38:26 07/01/19 16 07/03/2015 CBC platelets 305 x10e3 /uL 150-37 9 Not Available [facility], [place], [address], 07/04/2015 00:38:26 07/01/19 16 07/03/2015 CBC neutrophils 61 % Not Avai lable [facility] [address], [place], [address], 07/04/2015 00:38:26 07/01/19 16 07/03/2015 CBC lymphs 26 % Not Available [facility] [address], [place], [address], 07/04/2015 00:38:26 07/01/19 16 07/03/2015 CBC monocytes 9 % Not Availa ble [facility] [address], [place], [address], 07/04/2015 00:38:26 07/01/19 16 07/03/2015 CBC eos 4 % Not Available [facility] [address], [place], [address], 07/04/2015 00:38:26 07/01/19 16 07/03/2015 CBC basos 0 % Not Available [facility] [address], [place], [address], 07/04/2015 00:38:26 07/01/19 16 07/03/2015 CBC neutrophils (absolute) 3.8 x10e3 /uL 1.4-7. 0 Not Available [facility] [address], [place], [address], 07/04/2015 00:38:26 07/01/19 16 07/03/2015 CBC lymphs (absolute) 1.6 x10e3 /uL 0.7-3. 1 Not Available [facility] [address], [place], [address], 07/04/2015 00:38:26 07/01/19 16 07/03/2015 CBC monocytes(ab solute) 0.6 x10e3 /uL 0.1-0. 9 Not Available [facility] [address] [place] [address] [address] [place], [address], 07/04/2015 00:38:26 07/01/19 16 07/03/2015 CBC eos (absolute) 0.2 x10e3 /uL 0.0-0. 4 Not Available [facility] [address] [place] [address] [address] [place], [address], 07/04/2015 00:38:26 07/01/19 16 07/03/2015 CBC baso (absolute) 0.0 x10e3 /uL 0.0-0. 2 Not Available [facility] [address] [place] [address], [address], 07/04/2015 00:38:26 07/01/19 16 07/03/2015 CBC immature granulocytes 0 % Not Available [facility] [address] [place] [address], [address], 07/04/2015 00:38:26 07/01/19 16 07/03/2015 CBC immature grans (abs) 0.0 x10e3 /uL 0.0-0. 1 Not Available [facility] [address] [place] [address], [address], 07/04/2015 00:38:26 07/01/19 16 07/03/2015 T3, free, serum or plasm a triiodothyro nine,free,se rum 2.8 pg/mL 2.0-4. 4 Not Available [facility] [address] [place] [address] [address] [place], [address], 07/04/2015 00:38:27 07/01/19 16 07/01/2015 venip unctu re venipuncture CHARGE Not Available [facility] [address] [facility] [address] [facility], [place], [address], 07/01/2015 09:28:57 04/26/20 17 04/26/2017 RT foot 3 views RIGHT FOOT: THREE VIEWS Histor y: Right foot pain. Techni que: A three- view right foot x-ray series was perfor med. Findin gs: There is osteop enia. There is no eviden ce for an acute fractu re, avascu lar necros is or bone destru ction. There is a 5 mm calcan eal osteop hyte at the planta r fascia insert ion. The joints have normal widths . The soft tissue s are unrema rkable . Impres randy: 1. A 5 mm calcan eal osteop hyte at the planta r fascia insert ion. 2. Osteop enia. 3. The remain nathanael of the right foot x-ray series was unrema rkable . If the sympto ms persis t, then an MRI is recomm ended for furthe r evalua tion. Thank you for this referr alShweta Vivar onical ly signed Rodriguez randolph Radiol ogist: Sofia Orellana MD [address], [facility], 05/24/2017 10:18:38 04/26/20 17 04/26/2017 RT ankle 3 views RIGHT ANKLE: THREE VIEWS Histor y: Right ankle pain. Techni que: A three- view right ankle x-ray series was perfor med. Findin gs: There is osteop enia. There is no eviden ce for an acute fractu re, avascu lar necros is or bone destru ction. There is a 5 mm calcan eal osteop hyte at the planta r fascia insert ion. The joints have normal widths . The soft tissue s are unrema rkable . Impres randy: 1. A 5 mm calcan eal osteop hyte at the planta r fascia insert ion. 2. Osteop enia. 3. The remain nathanael of the right ankle x-ray series was unrema rkable . If the sympto ms persis t, then an MRI is recomm ended for furthe r evalua tion. Thank you for this referr alShweta Vivar onical ly signed Readin g Radiol ogist: Sofia Orellana MD [address], [address], 05/24/2017 10:18:38 04/26/20 17 04/26/2017 lt foot 3 views LEFT FOOT: THREE VIEWS Histor y: Left foot pain. Techni que: A three- view left foot x-ray series was perfor med. Findin gs: The bones are intact . There is no eviden ce for an acute fractu re or bone destru ction. There is osteop enia. There is mild narrow ing of the first tarsom etatar julian, which has an osteop hyte. The findin gs are compat ible with mild osteoa rthrit is. The remain ing joints have normal widths . The soft tissue s are unrema rkable . Impres randy: 1. Mild osteoa rthrit is of the first tarsom etatar julian joint. 2. Osteop enia. If the sympto ms persis t, then an MRI is recomm ended for furthe r evalua tion. Thank you for this referr alShweta Vivar onical ly signed Readin Radiol ogist: Sofia Orellana MD [email or web address], [address], 05/24/2017 10:18:37 04/26/20 17 04/26/2017 lt ankle 3 views LEFT ANKLE: THREE VIEWS Histor y: Left ankle pain. Techni que: A three- view left ankle x-ray series was perfor med. Findin gs: There is osteop enia. There is no eviden ce for a fractu re, avascu lar necros is or bone destru ction. The joint compar tments have normal widths . The soft tissue s are unrema rkable . Impres randy: 1. Osteop enia. 2. The remain nathanael of the left ankle x-ray was unrema rkable . If the sympto ms persis t, then an MRI is recomm ended for furthe r evalua tion. Thank you for this referr alShweta Vivar onical ly signed Readin g Radiol ogist: Sofia Orellana MD [address], [address], 05/24/2017 10:18:37 05/02/20 17 05/01/2017 venou s bilat le BILATE RAL LOWER EXTREM ITY VENOUS ULTRAS OUND Histor y: Patien t states pain in feet bilate rally for one year. No histor y of DVT. Prior Compar isons: None. Techni que: Ultras ound of bilate ral lower extrem ity deep veins was perfor med with 2D color- flow Dopple r imagin g. Findin gs: The bilate ral common femora l veins and greate r saphen ous veins, superf icial femora l veins in proxim al, mid and distal aspect s, poplit eal vein, the trifur cation , miner placer ior tibial is vein, perone al vein, as well as the poplit eal fossa were evalua christine with color Dopple r, compre ssion/ augmen tation and graysc abel ultras onogra phy. No eviden ce of deep venous thromb osis was detect ed. No incide ntal findin gs such as reflux or Mcintyre' s cyst. Impres sions: Negati ve DVT study for the bilate ral lower extrem ities. Thank you for this referr alShweta Vivar onical ly signed Readin g Radiol ogist: Dina Dos Santos on D.O. [address], [address], 05/24/2017 10:18:37 05/29/19 18 05/29/2017 lt knee 4 views LEFT KNEE: FOUR VIEWS Findin gs: Left knee radiog raphs are evalua christine. There is mild medial joint space narrow ing and small effusi on. There is no fractu re, lytic lesion , cortic al destru ction or soft tissue mass. No perios teal reacti on is seen. Impres randy: 1. Mild medial joint space narrow ing and small effusi on; nothin g acute. Thank you for this referr alShweta Vivar onical ly signed Readin g Radiol ogist: Americo Yeboah [place] [id number], [address], 06/14/2017 10:28:25 05/30/19 18 05/29/2017 RT knee 4 views RIGHT KNEE: FOUR VIEWS Werner gs: Views of the right knee are evalua christine. There is modera te medial joint space narrow ing. Small effusi on. There is no fractu re. There is minor degene rative change in the patell ofemor al articu lation . Impres randy: 1. Minor patell ofemor al articu lation of the degene rative change . 2. Modera te medial joint space narrow ing. 3. Small effusi on, nothin g acute. Thank you for this referr al. Electr onical ly signed Readsuzanne randolph Radiol ogist: Americo Yeboah MD [email or web address], [address], 06/14/2017 10:28:25 Result Notes None recorded. Problems Name Problem SNOMED Code Status Onset Date Resolution Date Notes Provider Name and Address Organization Details Recorded Time Psoriasis 1347732 Active Dang Arvizu, DO [address], [place], [address], [facility], [facility] 6 11:50:28 Obesity 066207403 Active Dang Arvizu DO [address], [place], [address], [facility], [facility] 6 11:50:28 Labile hypertension Active Dang Arvizu DO [address], [place], [address], [facility], [facility] 6 11:50:28 Electrocardiog cheryl abnormal 423270817 Active ANSHUL Jasso [address], [place], [address], [facility], [facility] 5 07:25:34 Benign essential hypertension 6941815 Active ANSHUL Jasso [address], [place], [address], [facility] Physician [facility], [facility] 5 14:30:18 Body mass index 30+ - obesity 693646313 Active Dang Arvizu, DO [address], [place], [address], [facility] Physician [facility], [facility] 6 11:50:28 Pure hypercholester olemia 389570573 Active Dang Arvizu, DO [address], [place], [address], [facility], [facility] 6 11:50:28 Problem Notes None recorded. Procedures Surgical History Date Name Laterality Status Provider Name and Address Organization Details Recorded Time 06/14/19 18 Quality Functional Assessment completed [facility], [facility] 06/14/2017 10:18:52 06/14/19 18 Quality Medication Reviewed and Updated completed [facility], [facility] 06/14/2017 10:18:52 06/14/19 18 Medicare AWV Questionnaire completed ANSHUL Jasso [address], [place], [address], [facility], [facility] 06/14/2017 10:33:19 06/14/19 18 Quality Fall Risk Assessment Low Risk completed [facility], [facility] 06/14/2017 10:18:52 06/14/19 18 Quality BMI with follow up completed [facility], [facility] 06/14/2017 10:18:52 06/14/19 18 Quality Advanced Care Planning completed [facility], [facility] 06/14/2017 10:18:52 06/14/19 18 Quality Incontinence Screening completed [facility], [facility] 06/14/2017 10:18:52 04/24/20 17 Quality Functional Assessment completed [facility], [facility] 04/24/2017 11:03:38 04/24/20 17 Quality Medication Reviewed and Updated completed [facility], [facility] 04/24/2017 11:03:38 12/05/20 17 Medicare AWV Questionnaire completed ANSHUL Jasso [address], [place], [address], [facility] Physician [facility], [facility] 04/24/2017 11:41:08 04/24/20 17 Quality Fall Risk Assessment Low Risk completed [facility], [facility] 04/24/2017 11:03:38 04/24/20 17 Quality BMI with follow up completed [facility], [facility] 04/24/2017 11:03:38 04/24/20 17 Quality Advanced Care Planning completed [facility], [facility] 04/24/2017 11:03:38 04/24/20 17 Quality Incontinence Screening completed [facility], [facility] 04/24/2017 11:03:38 09/19/19 17 Mammogram Screening completed Vianca Rosales [facility], [facility] 05/24/2017 10:06:33 07/07/19 16 Quality Pain Screening No Pain completed [facility], [facility] 07/07/2015 10:59:28 07/07/19 16 Quality Functional Assessment completed [facility], [facility] 07/07/2015 10:59:29 07/07/19 16 Quality Medication Reviewed and Updated completed [facility], [facility] 07/07/2015 10:59:29 07/07/19 16 Quality (DM or HTN) BP Diastolic < 80 completed [facility], [facility] 07/07/2015 10:59:29 07/07/19 16 Medicare AWV Questionnaire completed Dang Arvizu DO [address], [place], [address], [facility], [facility] 07/07/2015 11:47:38 07/07/19 16 Quality Tobacco Non- User completed [facility], [facility] 07/07/2015 10:59:29 07/07/19 16 Quality (DM or HTN ) BP Systolic < 130 completed [facility], [facility] 07/07/2015 10:59:29 07/07/19 16 Quality Fall Risk Assessment Low Risk [facility] 07/07/2015 10:59:29 07/07/19 16 Quality BMI with follow up completed [facility], [facility] 07/07/2015 10:59:30 07/07/19 16 Quality Advanced Care Planning completed [facility], [facility] 07/07/2015 10:59:30 07/07/19 16 Quality Incontinence Screening completed [facility] 07/07/2015 10:59:30 04/22/20 15 Quality Depression screening completed ANSHUL Jasso [address], [place], [address], [facility], [facility] 04/22/2015 14:45:20 04/22/20 15 Quality BMI with follow up completed ANSHUL Jasso [address], [place], [address], [facility], [facility] 04/22/2015 14:40:45 06/29/19 15 Quality Pain Screening No Pain completed [facility], [facility] 06/29/2014 11:41:00 06/29/19 15 Quality Functional Assessment completed [facility] 06/29/2014 11:41:00 06/29/19 15 Quality Medication Reviewed and Updated completed [facility] 06/29/2014 11:41:00 06/29/19 15 Quality (DM or HTN) BP Systolic > 140 completed Dang Arvizu DO [address], [place], [address], [facility], [facility] 06/29/2014 12:04:07 06/29/19 15 Quality (DM or HTN) BP Diastolic > 90 completed Dang Arvizu DO [address], [place], [address], [facility], [facility] 06/29/2014 12:04:07 06/29/19 15 Medicare AWV Questionnaire completed Dang Arvizu DO [address], [place], [address], [facility] Physician [facility], [facility] 06/29/2014 12:04:08 06/29/19 15 Quality Tobacco Non- User completed [facility], [facility] 06/29/2014 11:41:00 06/29/19 15 Quality Fall Risk Assessment Low Risk completed [facility], [facility] 06/29/2014 11:41:00 06/29/19 15 Quality BMI with follow up completed [facility], [facility] 06/29/2014 11:41:01 06/29/19 15 Quality Advanced Care Planning completed [facility], [facility] 06/29/2014 11:41:01 06/29/19 15 Quality Incontinence Screening completed [facility], [facility] 06/29/2014 11:41:01 05/21/19 14 Colonoscopy completed [facility], [facility] 06/04/2014 15:43:27 05/21/18 61 Other completed [facility], [facility] 06/04/2014 15:43:27 Hysterectomy completed [facility], [facility] 06/04/2014 15:43:27 Imaging Results Imaging Date Name Status LastModified by [facility] Details LastModified Time 04/26/2017 RT foot 3 views completed [email or web address] [facility] [address] [place], [address], 05/24/2017 10:18:38 04/26/2017 RT ankle 3 views completed [email or web address] [facility] [address] [place], [address], 05/24/2017 10:18:38 04/26/2017 lt foot 3 views completed [email or web address] [facility] [address] [place] [address], [address], 05/24/2017 10:18:37 04/26/2017 lt ankle 3 views completed [email or web address] [facility] [address] [place], [address], 05/24/2017 10:18:37 05/01/2017 venous bilat le completed [facility] [address] [place], [address], 05/24/2017 10:18:37 05/29/2017 lt knee 4 views completed [email or web address] [facility] [address] [place], [address], 06/14/2017 10:28:25 05/29/2017 RT knee 4 views completed [email or web address] [facility] [address] [place], [address], 06/14/2017 10:28:25 Procedure Notes None recorded. Medical Equipment None Reported. Allergies Allergen ID Allergen Name Allergen Category Reaction Reaction Severity Criticality Documentation Date Start Date Code Code System Note Provider Name and Address Organization Details Recorded Time 401305 Aleve medicatio n headache Not available Not available 06/04/2014 99267 1 RxNorm Ivetterichar Mckeon [facility] 5 15:39:02 783135 shellfish derived food,medi cation hives Not available Not available 06/04/2014 78139 UNK Ivette Mckeon [facility] 5 15:39:02 Medications Name Sig Start Date Stop Date Status Note LastModified by Organization Details LastModified Time benzonatate 200 mg capsule Take 1 capsule 3 times a day by oral route for 7 days. 2017 active Not Available Not Available Not Avai lable enalapril maleate 2.5 mg tablet Take 1 tablet every day by oral route. active Not Available Not Available No t Available clobetasol 0.05 % topical cream active Not Available Not Available Not Available ciprofloxaci n 500 mg tablet active Not Available Not Available Not Available calcipotrien e 0.005 % topical cream active Not Available Not Available Not Available halobetasol propionate 0.05 % topical cream APPLY 1 APPLICATION ONCE DAILY BY TOPICAL ROUTE active Not Available Not Available No t Available cefuroxime axetil 500 mg tablet Take 1 tablet twice a day by oral route for 7 days. active Not Available Not Available No t Available Fish Oil 500 mg capsule Take 2 capsules every day by oral route. active Not Available Not Available No t Available Vitamin D3 25 mcg (1,000 unit) capsule Take 1 capsule every day by oral route as directed. active Not Available Not Available No t Available calcium active Not Available Not Avail able Not Available [place] 3 active Not Available Not Avail able Not Available Vitals Date Recorded Body height Body mass index (BMI) Body weight Respiratory rate Heart rate Body temperature Oxygen saturation Oxygen saturation in Arterial blood by Pulse oximetry Systolic blood pressure Diastolic blood pressure Provider Name and Address Organization Details Last Updated DateTime 6 154.94 cm 30.5 kg/m2 06319.8 79190 g 16 /min 88 /min 98.2 [degF] 97 % 97 % 152 mm[Hg] 100 mm[Hg] Tamica Yañez [facility], [facility] 6 11:18:42 Date Recorded Body weight Body mass index (BMI) Body height Oxygen saturation Oxygen saturation in Arterial blood by Pulse oximetry Heart rate Systolic blood pressure Diastolic blood pressure Provider Name and Address Organization Details Last Updated DateTime 7 91201.1 6 g 29.8 kg/m2 154.94 cm 96 % 96 % 91 /min 134 mm[Hg] 84 mm[Hg] Thalia Sanchez [facility], [facility] 7 11:08:02 Date Recorded Body height Body mass index (BMI) Body weight Oxygen saturation Oxygen saturation in Arterial blood by Pulse oximetry Heart rate Systolic blood pressure Diastolic blood pressure Provider Name and Address Organization Details Last Updated DateTime 8 154.94 cm 29.7 kg/m2 22545.4 4 g 98 % 98 % 74 /min 132 mm[Hg] 72 mm[Hg] Vianca Rosales [facility], [facility] 8 10:05:40 Date Recorded Body height Body mass index (BMI) Body weight Heart rate Oxygen saturation Oxygen saturation in Arterial blood by Pulse oximetry Systolic blood pressure Diastolic blood pressure Systolic blood pressure Diastolic blood pressure Provider Name and Address Organization Details Last Updated DateTime 8 154.94 cm 29.9 kg/m2 24456.5 9 g 98 /min 92 % 92 % 180 mm[Hg] 60 mm[Hg] 180 mm[Hg] 80 mm[Hg] Randall Wyas [facility] 8 10:19:33 Date Recorded Systolic blood pressure Diastolic blood pressure Systolic blood pressure Diastolic blood pressure Provider Name and Address Organization Details Last Updated DateTime 06/14/2017 178 mm[Hg] 70 mm[Hg] 160 mm[Hg] 72 mm[Hg] ANSHUL Jasso [address] [facility], [place], [address] , [facility], [facility] 8 10:31:48 Date Recorded Body height Body mass index (BMI) Body weight Oxygen saturation Oxygen saturation in Arterial blood by Pulse oximetry Heart rate Body temperature Systolic blood pressure Diastolic blood pressure Provider Name and Address Organization Details Last Updated DateTime 8 154.94 cm 29.8 kg/m2 30704.8 8 g 97 % 97 % 87 /min 99.2 [degF] 162 mm[Hg] 70 mm[Hg] Thalia Daniel [facility] 8 10:49:52 Social History Question Answer Notes LastModified by Organizat ion Details LastModified Time Tobacco Smoking Status Never Smoker Ivette bedoya, [facility] 06/04/2014 15:43:27 How Much Tobacco Do You Chew? None Information not available 06/04/2014 What Type Of Diet Are You Following? REGULAR Information n ot available 06/29/2014 Which Illicit Or Recreational Drugs Have You Used? DENIES Information not available 06/04/2014 What Is Your Occupation? RETIRED Information not available 06/04/2014 Alcohol Use No Information n ot available 06/04/2014 Type Of Residence? House Inform ation not available 06/29/2014 Mobility Assistance? None Information not available 06/29/2014 Oxygen Use? No Information n ot available 06/29/2014 Nebulizer Use? No Informatio n not available 06/29/2014 CPAP/BiPAP Use? No Informati on not available 06/29/2014 Can Afford Medications? Yes Information not available 06/29/2014 Transportation Provided By? 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 No Information not available 06/29/2014 Weight Change In Last 6 Months? No Information not available 06/29/2014 Needs Assistance For Toileting? No Information not available 06/29/2014 Needs Assistance To Eat? No Information not available 06/29/2014 Live Alone Or With Others? With Spouse Information not available 06/29/2014 Marital Status Informatio n not available 06/04/2014 What Was The Date Of Your Most Recent Tobacco Screening? 06/19/2017 Information not available 12/13/2018 How Much Tobacco Do You Smoke? No Information not available 06/04/2014 Sex: Unknown Functional Status Question Answer Note LastModified by Organizat ion Details LastModified Time What is your exercise level? Occasional Information not available 06/04/2014 Mental Status None recorded. Family History Relationship Description Onset Age of this Age Resolved Age Notes LastModified by Organization Details LastModified Time Mother Heart disease 89 [email or web address] Not available 04/22 14:30:23 Father Paralysis 73 [email or web address] Not availa ble 04/22/2015 14:30:23 Medical History Condition Response Cancer (location) N Other N Gout N Kidney Stones N Measles/Mumps N Sexually Transmitted Disease N Depression N Prostate Problems N Parkinson's N Paralysis N Headaches/Migraines N Cardiac Pacemaker/defibrillator N Arthritis N Crohn's Disease N HIV/AIDS N Stroke/TIA N Kidney Disease N Gallbladder disease N High blood pressure N Alcohol Overuse N Blood Thinner Treatment N Nervous Breakdown N Braden's Esophagus N Urinary Problems N Gastritis N Back pain N Rheumatic Fever N Bleeding Disorder N Osteopenia/Osteoporosis N Asthma N Ostomies (location) N Seizures N Jaundice N Hepatitis N Cirrhosis N Chicken Pox N Allergies (other than meds) N Thyroid Disease N Emphysema/COPD N Vascular Disease N Rash/Skin Condition N Amputation (location) N Nerve Damage / Neuropathy N Sleep disorder/Insomnia N Heart disease / Heart Attack N High Cholesterol N Colon Problems N Serious Injuries N Memory Loss/Alzheimer's N Congestive heart failure N Falls N Hormone Replacement N Anemia N Colon Polyps N Hospitalizations (other than operations) N Diabetes N Cardiac Arrhythmias /irregular heart rat e N Anxiety/Stress N Vision Problems N Erectile / Sexual Dysfunction N GERD/Ulcer N Gynecological HistoryNo gynecological history recorded. Obstetrics History GPAL:G 0 P 0 0 0 0 Immunizations Vaccine Type Date Status Note Provider Nam e and Address Organization Details Recorded Time Influenza, split virus, trivalent, preservative 4 completed Ivette Linda [place], [place] - [facility], [facility] 06/04/2014 15:39:22 Past Encounters Encounter ID Performer Location Encounter Start Date Encounter Closed Date Diagnosis/Indication Diagnosis SNOMED-CT Code Diagnosis ICD10 Code Diagnosis Note [id number] Dang Arvizu DO [facility] [address] [place] [address] 06/04/2014 14:59:04 06/04/2014 15:54:29 Psoriasis [id number] SHE DECLINES DERM REFERRAL AND WANTS TO PAY THE [facility] FOR THE MEDS BECAUSE THEY WORK FOR HER Screening mammography 14535646 09/02 Adult heal th examination [id number] Dang Arvizu DO [place] [facility] [address] [place] [address] 06/29/2014 11:08:17 06/29/2014 12:37:32 Adult health examination 910121930 Medicare Annual Wellness Visit done today. Body mass index 30+ - obesity 941927117 weight issues discussed and informatio n on weight loss given. Needs follow up on weight control as scheduled. Education handout on diets given. Exercise counseling done. Will arrange referral for dietitian, nutritioni st, Physical/o ccupationa l therapy as needed or desired. Also will consider pharmaceut ical and supplement al interventi ons Obesity 640458306 Screening for malignant neoplasm of rectum 653091363 Labile hypertension 084313399 CHRONIC WHITECOAT HTN. SHE WILL CHECK HER BP WHEN SHE GETS HOME AND CALL ME. DECLINES MEDS. CHECK EKG AND ECHO RECHECK BP ONE WEEK WITH DIARY Electrocar diogram abnormal [id number] REFER TO CARDIOLOGI ST [id number] Dang Arvizu DO [place] [facility] [address] [place] [address] 07/06/2014 13:46:58 07/06/2014 14:52:35 Labile hypertension 273748410 CHRONIC WHITECOAT HTN. SHE WILL CONT TO CHECK BP AT HOME. START VASOTEC 2.5 MG QD AND ADJUST IF NEEDED. RECHECK ONE MONTH OR CALL IF ELEVATED. 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 [id number] Dang Arvizu DO [facility] [address] [place] [address] 08/06/2014 09:49:14 08/06/2014 10:29:24 Benign essential hypertension 0871348 WHITECOAT HTN. CONT TO MONITOR AND RECHECK 3 MONTHS Pure hypercholesterolemia 334654663 [id number] ANSHUL Jasso MP [facility] [place] [address] 04/22/2015 13:48:43 04/22/2015 15:03:54 Labile hypertension 393478648 I10 WHITE COAT SYNDROME. PT HASNT TAKEN VASOTEC SINCE LAST VISIT. BROUGHT IN LOG. WILL CONTINUE TO MONITOR Body mass index 30+ - obesity 029796795 E66.9 Z68.30 weight issues discussed and informatio n on weight loss given. Needs follow up on weight control as scheduled. Education handout on diets given. Exercise counseling done. Obesity 788133033 E66.9 Adult heal th examination 254102964 Z00.00 UPDATE QM. REVIEWED [facility] NOTES. PT HAD MAMMOGRAM 10/02 [facility], Menopausal symptom 36345 002 N95.1 ORDER DEXA Cataract 991813532 H26.9 CHRONIC. PT DID F/U WITH DR DE LEON, [facility]. STABLE. Electrocar diogram abnormal 584140746 R94.31 REVIEWED LAST NOTES PER DR ARVIZU. PT REFUSES TO SEE CARDIOLOGI ST, NOR DO CARDIAC IMAGING . ADVISED HER OF RISK OF CAD/DC/CVA . SHE AGREED. [id number] Dang Arvizu DO [facility] [facility] [place] [address] 07/07/2015 10:23:44 07/07/2015 12:07:45 Adult health examination 387331736 Z00.00 Medicare Annual Wellness Visit done today. Screening for malignant neoplasm of rectum 553018907 Z12.12 Body mass index 30+ - obesity 167700929 E66.9 Z68.30 weight issues discussed and informatio n on weight loss given. Needs follow up on weight control as scheduled. Education handout on diets given. Exercise counseling done. Will arrange referral for dietitian, nutritioni st, Physical/o ccupationa l therapy as needed or desired. Also will consider pharmaceut ical and supplement al interventi ons Obesity 482140022 E66.9 Labile hypertension 2767 17338 I10 CHRONIC WHITECOAT HTN. SHE WILL CONT TO CHECK BP AT HOME. START VASOTEC 2.5 MG QD AND ADJUST IF NEEDED. RECHECK ONE MONTH OR CALL IF ELEVATED. 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 07/07 ABOVE Pure hypercholesterolemia 478046385 E78.0 RECHECK 6 MONTHS. OTC MEDS. DECLINES STATIN Psoriasis 1711013 L40.9 SHE DECLINES DERM REFERRAL AND WANTS TO PAY THE [facility] FOR THE MEDS BECAUSE THEY WORK FOR HER [id number] ANSHUL Jasso [address] [place] [address] 04/24/2017 10:57:21 04/24/2017 11:53:34 Increased body mass index 92682574 Z68.29 elevated BMI. Discussed diet and better therapeuti c lifestyle changes. Diet education 86035364 Z71.3 as above Benign ess ential hypertension 1924041 I10 CHRONIC STABLE. WILL CONTINUE TO MONITOR Foot pain 59743710 M79.6 73 B/L FOOT. DISCUSSED CONDITION VS OA. ORDER XRAY B/L FEET AND ANKLE, ORDER VENOUS US. REFER TO HAND BRUSH FILLER FOR CORTISONE INJECTION. Osteoarthritis 878419921 M19.90 DIFFUSE. SEE ABOVE Active immunization 3387 9002 Z23 PT REFUSES IMMUNIZATI ONS Adult heal th examination 699201024 Z00.00 COREY COMPLETED TODAY. PER PT SHE SAID THAT SHE HAD A PHYSICAL ON OR ABOUT NOVEMBER 14, 2016. WILL OBTAIN RECORDS. [id number] ANSHUL Jasso [address] [place] [address] 05/24/2017 09:54:27 05/24/2017 10:38:33 Osteoarthritis 660314786 M19.90 05/24 ACUTE ON CHRONIC DIFFUSE. TO B/L KNEES. DISCUSSED CONDITION AND TREATMENT. ORDER XRAY B/L KNEES. USE TYLENOL OA AND BIOFREEZE TID. PT REFUSES WANTING A CANE/WALKE R FOR ASSISTANCE Foot pain 32962760 M79.6 73 B/L FOOT. DISCUSSED CONDITION VS OA. ORDER XRAY B/L FEET AND ANKLE, ORDER VENOUS US. REFER TO HAND BRUSH FILLER FOR CORTISONE INJECTION. 05/24 ONGOING AND IMPROVED. PT DIDN'T GO TO PODTRIATIS T, NO DID SHE GO TO PHYSICAL THERAPY [id number] ANSHUL Jasso [address] DR [address] [address] [place] [address] 06/14/2017 10:01:30 06/14/2017 10:53:24 Adult health examination [id number] Z00.00 Annual Wellness Visit done today. PT IS DUE FOR LABS, A1C, UA/MICRO-- PT SAID THAT SHE GETS BW AND PHYSICAL COMPLETED [facility] [place] IN SEPTEMBER. WHEN I ASKED ABOUT [facility], SHE DENIES GETTING PART COMPLETED. EXPLAINED C[facility] VISITS AND PURPOSE. PT DOESN'T WANT BW DONE HERE. MAMMOGRAM COMPLETED [facility] [place]. WILL DOCUMENT THIS Increased body mass index [id number] Z68.29 elevated BMI. Discussed diet and better therapeuti c lifestyle changes. Diet education [id number] Z71.3 as above Elevated blood-pressure reading without diagnosis of hypertension 326020381 R03.0 06/14 ELEVATED TODAY BUT PT IS VISIBLY UPSET SHE WAS JUST NOTIFIED OF 3 CLOSE FRIENDS WHO THIS WEEK. DISCUSSED CONDITION AND HER RISKS FOR CAD/DC/CVA . PT CONTINUED TO STATE THAT IT IS NOW WHEN SHE IS HOME. DOESN'T WANT MEDICATION Osteoarthritis [id number] M25.569 06/14 ACUTE ON CHRONIC DIFFUSE. TO B/L KNEES. DISCUSSED CONDITION AND TREATMENT, TO INCLUDE SYNVISC ,VS CORTISONE INJECTION. . REFER TO ORTHO FOR SYNVISC INJECTION. [id number] ANSHUL Jasso DR [address] [place] [address] 06/19/2017 10:37:24 06/19/2017 11:18:29 Upper respiratory infection [id number] J06.9 ACUTE DISCUSSED CONDITION AND TREATMENT. REST, FLUIDS SEE BELOW Acute bronchitis 6431001 2 J20.9 START CEFTIN 500MG BID X 7 DAYS. PERLES 200MG TID X 7 DAYS Health Concerns Section Related Observation LastModified by Organization Detai ls LastModified Time None Recorded Concern Status LastModified by Organization Details LastModified Time None Recorded Advance Directives Directive None Recorded Payers Encounter Date Sequence Insurance Name Policy Number Policy Bhagat Covered Member ID Bhagat Member ID Guarantor Name 07/07/2015 1 [facility] [place]PLACEMENT H[place] [id number] Cara Downeyture [id number] Cara Juarez 04/24/2017 1 [facility] [place]PLACEMENT HMO[place] [id number] Cara Yap Couture [id number] Cara Juarez 05/24/2017 1 [facility] [place]MEDIC[place]PLACEMENT HMO[place] [id number] Cara Downeyture [id number] Cara Juarez 06/14/2017 1 [facility] [place]MEDICARE REPLACEMENT HMO[place] [id number] Cara Downeyture [id number] Cara Juarez 06/19/2017 1 [facility] [place]MEDICARE REPLACEMENT HMO) [id number] Cara Downeyture [id number] Cara Juarez Notes Date Note Type Note Provider Name and Address Organization Details Recorded Time 6 text/html DyslipidemiaReported bypatient.Reason for visit:continued care of chronic complaint Diagnosis:hypercholesterole daniel Interventions:no interventions Current therapy:medication list reviewed; no side effects from medication Current tests/results:Lipid profile shows adequate control as out patient Current Symptoms/Concerns:none stated; no myalgias; no chest pain; no shortness of breath; no fatigueHypertension/Hyperte nsive diseasesReported bypatient.Reason for visit:continued care of chronic complaint Hypertension Diagnosis:White coat hypertension Current therapy:using other therapeutic lifestyle changes Current control and compliance:usually compliant with regimen; checks bp regularly with home monitor Current Symptoms/Concerns:none stated; no chest pain; no shortness of breath; no fatigue; no edemaNotes:HERE TO ESTABLISH CARE. SHE SAYS FOR YEARS SHE HAS HAD WHITECOAT HTN. SHE MONITORS IT AT HOME AND SHE WAS NORMAL. SHE FEELS GREAT WITH NO C/O. NEEDS REFILLS ON PSORIASIS MEDS 06/29 BP VERY ELEVATED TODAY. SHE SAYS IT IS FINE AT HOME. 136/74 TODAY AT HOME. SHE KNOWS HER BP WILL BE ELEVATED HERE BUT FINE AT HOME. THIS HAPPENED WITH HER DOCTOR [facility] AND HE HAD HER KEEP A DIARY TO REVIEW. PT DENIES HEADACHE, DIZZINESS OR CHEST PAIN. SHE SAYS SHE HAS HAD MULTIPLE EKG [facility] [place]. 07/06 HERE FOR RECHECK. BP DIARY SHOWS SBP AROUND 150. HERE SHE IS OVER 190. SHE GETS EXTREMELY NERVOUS HERE. DENIES ANY SYMPTOMS 08/06 HERE FOR RECHECK. SHE GETS VERY WORKED UP WHEN SHE COMES HERE AND DOESN'T KNOW WHY. HER BP DIARY IS NORMAL. SBP 120 SHE FEELS GREAT. SHE HAS MADE HER DIET EVEN MORE STRICT. DIDN'T DO ECHO YET AND SHE DIDN'T FEEL SHE NEEDED THE VASOTEC SO SHE ISN'T TAKING IT 07/07 PT STATES HER BP NORMAL AT HOME THIS AM AND IT IS ONLY SHERIDAN HERE AND CAN'T CALM DOWN WHEN SHE IS AT THE DOCTOR'S OFFICE Medicare Annual Wellness VisitReported bypatient.Visit type:subsequent Medicare Annual Wellness visit PMH/PSH/Rx and Social History Review:updated EMR in appropriate tabs; other providers updated Dang Arvizu DO [address] [facility] Joslyn [facility], [place], [address], [facility] [[email or web address]] - [facility], [facility] 07/07/2015 12:08:35 7 text/html EdemaReported bypatient.Reason for visit:exacerbation of chronic complaintNotes:RECURRENT EDEMA TO B/L FEET X 6 MONTHS. SAID THAT SHE SAW A HAND BRUSH FILLER [place]. SHE HAD XRAYS AND TOLD IT WAS BURSITIS AND TOLD TO START PT, BUT HER INSURANCE DIDN'T PAY FOR IT. SHE DID COMPLETE PT TWICE A WEEK FOR 8 WEEKS SHE TRIED TO USE PT BUT NO RELIEF. STILL HAVING MORE PAIN TO THE INSTEP OF B/L FEET. WORSE IN STANDING AND PROLONGED WALKING SAID THAT THE PAIN WAS MAINLY FROM THE MID-INSTEP TO MEDIAL ANKLE, AND AT TIMES SHOOT PAIN. PREVIOUS INJURY TO B/L FEET IN LATE 1988. NO CP, NO SOB, NO PALPITATIONS, NOHypertension/Hypertensive diseasesReported bypatient.Reason for visit:continued care of chronic complaint Hypertension Diagnosis:White coat hypertension Current therapy:using other therapeutic lifestyle changes Current control and compliance:usually compliant with regimen; checks bp regularly with home monitor Current tests/results:blood pressure log shows adequate control as out patient Current Symptoms/Concerns:none stated; no chest pain; no shortness of breath; no fatigue; no edemaNotes:CHRONIC STABLE BUT ELEVATED NO CP, NO SOB, NO FATIGUEMedicare Annual Wellness VisitReported bypatient.Visit type:subsequent Medicare Annual Wellness visit PMH/PSH/Rx and Social History Review:updated EMR in appropriate tabs; other providers updatedNotes:COMPLETED [facility]. NO RECENT LABS. PER PT SHE HAD MAMMOGRAM PER ANSHUL Benitez [address], [place], [address], [employer] [place] [employer] 04/24/2017 13:50:18 8 text/html EdemaReported bypatient.Reason for visit:exacerbation of chronic complaintNotes:RECURRENT EDEMA TO B/L FEET X 6 MONTHS. SAID THAT SHE SAW A HAND BRUSH FILLER [place]. SHE HAD XRAYS AND TOLD IT WAS BURSITIS AND TOLD TO START PT, BUT HER INSURANCE DIDN'T PAY FOR IT. SHE DID COMPLETE PT TWICE A WEEK FOR 8 WEEKS SHE TRIED TO USE PT BUT NO RELIEF. STILL HAVING MORE PAIN TO THE INSTEP OF B/L FEET. WORSE IN STANDING AND PROLONGED WALKING SAID THAT THE PAIN WAS MAINLY FROM THE MID-INSTEP TO MEDIAL ANKLE, AND AT TIMES SHOOT PAIN. PREVIOUS INJURY TO B/L FEET IN LATE 1988. NO CP, NO SOB, NO PALPITATIONS, NO 05/24 PT DIDN'T GO TO PHYSICAL THERAPY DUE TO COSTS. HAS BEEN USING OTC ARTHRITIS CREAM TO HER FEET WHICH HELPED.Musculoskeletal ComplaintReported bypatient.Reason for visit:exacerbation of chronic complaintNotes:HERE TO REVIEW IMAGING. BONE SPUR TO RIGHT HEEL, OTHERWISE OA SEEN B/L NOW SHE FEELS THAT THE LEFT KNEE GIVES OUT. DENIES TAKING ANYTHING ANSHUL Jasso [address], [place], [address], [employer] 05/25/2017 07:17:53 8 text/html Hypertension/Hypertensive diseasesReported bypatient.Reason for visit:continued care of chronic complaint Hypertension Diagnosis:Benign Essential hypertension;White coat hypertension Current therapy:medication list reviewed; using diet and exercise; using other therapeutic lifestyle changes; no side effects from medication Current control and compliance:usually well controlled; usually compliant with regimen; checks bp regularly with home monitor; exercising regularly Current tests/results:blood pressure log shows poor control as out patient Current Symptoms/Concerns:none stated; no chest pain; no shortness of breath; no headaches; no blurred vision; no palpatationsNotes:SEE ABOVEMedicare Annual Wellness VisitReported bypatient.Visit type:subsequent Medicare Annual Wellness visit PMH/PSH/Rx and Social History Review:updated EMR in appropriate tabs; other providers updatedNotes: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 PT SAID THAT SHE WAS JUST NOTIFIED OF 3 PEOPLE WHO THIS WEEK. HER BW WAS ELEVATED. PT SEES HER PCP [facility] [place] OCTOBER FOR HER PHYSICAL. DOESN'T WANT BW NOW . SHE ALSO GETS HER MAMMOGRAM COMPLETEMusculoskeletal ComplaintReported bypatient.Reason for visit:exacerbation of chronic complaintNotes:HERE TO REVIEW IMAGING. BONE SPUR TO RIGHT HEEL, OTHERWISE OA SEEN B/L NOW SHE FEELS THAT THE LEFT KNEE GIVES OUT. DENIES TAKING ANYTHING. 06/14 REVIEWED XRAYS: DJD. RIGHT WORSE THAN LEFT. ANSWERED QUESTIONS ABOUT SYNVISC VS ORTHOVISC, VS CORTISONE INJECTIONS. ANSHUL Jasso [address], [place], [address], [employer] [place] [employer] 06/14/2017 13:38:14 8 text/html Cough / ColdReported bypatient.Reason for visit:acute complaintNotes:C/O COLDX FEW DAYS. NO SINUS PRESSURE, SORE THROAT, +DEEP COUGH +CHEST CONGESTION, PRODUCTIVE, ?FEVER, CHILLS. HAS BEEN MAINLY ON FLUIDS ANSHUL Jasso [address], [place], [address], [facility] [[email or web address]] [employer], [employer] 06/19/2017 12:10:00 OBGyn Episode No OBEpisode recorded.
--- OUTSIDE RECORDS SUMMARY | 2024-09-23 11:04 | XMS_ITS ---
Author Organization Juan Quarles MD Address [address] [place], [place] [phone] Care Team Providers Care Produce Runner Name Role Phone Juan Quarles Primary Care [...] kg/m2 04/01/2024 weight is down 3 pounds [facility] 09-28-23 Encounters Encounter Location Date Provider Diagnosis Juan Quarles MD [address] [place] [address] [address] [place], [place] [phone] 04/01/2024 Juan Quarles Generalized arthriti s M19.90 [...] Follow Up: 6 Months, Reason: Provider Name:Juan conner, 09/30/2024 02:00:00 PM, [address] [place] [address], [address], [phone], Provider Name:Juan conner, 04/02/2025 07:00:00 AM, [address] [place] [address], Suite [facility], [place], [place], [phone], Provider Name:Juan conner, 04/07/2025 01:00:00 PM, [address] [place] [address], Suite [facility], [place], [place], [phone], Progress Notes * Cara OLSONDOB:1940 (83 yo F)Acc No.[id number]:04/01/2024 Progress Notes Patient:?Cara Olson Provider:?Juan Quarles MD :1940???Age:83 Y???Sex:Female D ate:04/01/2024 Address: [id number] Subjective: * Chief Complaints: * ???ANNUAL EXAM * HPI: ???Depression Screening:?PHQ-9?Little interest or pleasure in doing things?Not at all,?Feeling down, depressed, or hopeless?Not at all,?Trouble falling or staying asleep, or sleeping too much?Not at all,?Feeling tired or having little energy?Not at all,?Poor appetite or overeating?Not at all,?Feeling bad about yourself or that you are a failure, or have let yourself or your family down?Not at all,?Trouble concentrating on things, such as reading the newspaper or watching television?Not at all,?Moving or speaking so slowly that other people could have noticed; or the opposite, being so fidgety or restless that you have been moving around a lot more than usual?Not at all,?Thoughts that you would be better off or of hurting yourself in some way?Not at all,?Total Score?0.?Communication Needs:?Communication Needs?Does the patient have a hearing impairment?No,?Does the patient have a vision impairment??Yes,?If yes, what is the vision impairment??Glasses,?Does the patient have a cognition impairment??Yes.?Fall Risk:?History?Have you had any falls with injury in the past year??No,?Have you had two or more falls in the past year??No.?SDOH Questions:?SDOH Questions?In the past year have you been worried about losing housing??No,?In the past year have you or any family members you live with been unable to get any of the following when it was really needed? Check all that apply:?None.?Symptom(s):? patient is a 83 yo female here for annual visit with review of recent labs and followu[ of chronic issues. * ROS:?General/Constitutional:?Patient denies?fatigue , headache.?Change in appetite?denies.?Chills?denies.?Fever?denies.?Ophthalmologic:?Blurred vision?denies.?Discharge?denies.?Pain?denies.?ENT:?Patient denies?decreased sense of smell , any loss of taste , sore throat.?Decreased hearing?denies.?Sore throat?denies.?Swollen glands?denies.?Endocrine:?Cold intolerance?denies.?Excessive thirst?denies.?Heat intolerance?denies.?Weight loss?denies.?Respiratory:?Cough?denies.?Shortness of breath at rest?denies.?Shortness of breath with exertion?denies.?Wheezing?denies.?Cardiovascular:?Chest pain at rest?denies.?Chest pain with exertion?denies.?Irregular heartbeat?denies.?Shortness of breath?denies.?Gastrointestinal:?Abdominal pain?denies.?Change in bowel habits?denies.?Diarrhea?denies.?Nausea?denies.?Rectal bleeding?denies.?Vomiting?denies .?Genitourinary:?Blood in urine?denies.?Difficulty urinating?denies.?Frequent urination?denies.?Urinary incontinence?Denies.?Musculoskeletal:?Patient denies?muscle aches.?Painful joints?denies.?Weakness?denies.?Peripheral Vascular:?Patient denies?red and blue toes.?Skin:?Dry skin?denies.?Itching?denies.?Denies?Mole(s),? changes in moles, new moles or any lesions of concern.?Denies?Photosensitivity.?Rash?denies.?Neurologic:?Dizziness?denies.?Fainting?denies.?Headache?denies.? * Medical History:? * Surgical History:? * Hospitalization/Major Diagno stic Procedure:? * Family History:?Father: dece ased 73 yrs.?Mother: 89 yrs.?1 brother(s) , 2 sister(s) . 2 son(s) , 1 daughter(s) . .? 1 deceasd brother Father Mother Cardiac, Denies mental health/substance abuse family history, Denies mental health/substance abuse family history. * Social History:?Tobacco Use:?Tobacco Use/Smoking?Patient is a?nonsmoker,?Additional Findings: Tobacco Non-User?Current non-smoker, currently using no form of tobacco.?Drugs/Alcohol:?Alcohol Screen?Did you have a drink containing alcohol in the past year??No,?Points?0,?Interpretation?Negative.?Miscellaneous:?Caffeine: yes, frequency:, 1-2 cups per day. Children: yes. Home smoke detector use: yes. Housing: owning. Living with: spouse. Marital status: . Occupation: retired. Pets: none. no Travel outside of the [place]. * Medications:?TakingAspir-Low 81 MG Tablet Delayed Release 1 tablet [...] reviewed and reconciled with the patient * Allergies:?Candace: gilles redman[Allergies Verified] Objective: * Vitals:?Ht: 60, Wt:133, BMI: 25.97, BP:142/70 weight is down 3 pounds since 09-28-23. * ???Past Orders: ???Lab:Comprehensive [place]. P marcia Fast (Order Date - 03/25/2024) (Collection Date - 03/25/2024) ? Value Reference Range ?Sodium 139 135-145 - mmo l/L ?Bilirubin Total 0.8 0.0- 1.0 - mg/dL ?Aspartate Amino Transferase 26 5-31 - U/L ?Alanine Aminotransferase 10 0-31 - U/L ?Total Protein 7.0 6.5-8. 0 - g/dL ?Albumin Level 4.1 3.5-5. 0 - g/dL ?Alkaline Phosphatase 103 39-117 - U/L ?Potassium 4.1 3.3-5.1 - mmol/L ?Chloride 104 96-108 - mm ol/L ?Carbon Dioxide 26 22-29 - mmol/L ?Anion Gap 13 12-20 - ?Blood Urea Nitrogen 23 H 9-16 - mg/dL ?Creatinine 0.82 0.5-1.4 - mg/dL ?Estimated Glomerular Filt Rate > 60 - ?Glucose Fasting 89 60-9 9 - mg/dL ?Calcium 9.6 8.4-10.2 - m g/dL ???Lab:Lipid Panel (Order Da 03/25/2024) (Collection - 03/25/2024) ? Value Reference Range ?Triglycerides 84 <150 - mg/dL ?Cholesterol 151 <200 - m g/dL ?LDL Cholesterol Calculated 83 <100 - mg/dL ?HDL Cholesterol 52 >40 - mg/dL ???Lab:Urine Culture (Order 03/25/2024) (Collection - 03/25/2024) ? Value Reference Range ?Urine Culture urogenital contamination. - ???Lab:Vitamin D 25-OH Total (Order 03/25/2024) (Collection - 03/25/2024) ? Value Reference Range ?Vitamin D 25-OH Total 22.6 L >30 - ng/mL ???Lab:Microalbumin, Random (Order 03/25/2024) (Collection - 03/25/2024) ? Value Reference Range ?Creatinine Urine 189.46 - m g/dL ?Microalbumin Urine 19.0 - mg/L ?Microalbum Creatinin e Ratio Ur 10.0 <30 - ug/mg cr ???Lab:Hemoglobin A1c (Order 03/25/2024) (Collection - 03/25/2024) ? Value Reference Range ?Hemoglobin A1c % 5.5 <6. 0 - % ?Estimated Average Glucose 111 - mg/dL ???Lab:Complete Blood Count Auto Diff (Order 03/25/2024) (Collection - 03/25/2024) ? Value Reference Range ?White Blood Count 6.0 4. 8-10.8 - X10*3/uL ?Red Blood Count 4.03 L 4.20 -5.50 - X10*6/uL ?Hemoglobin 11.3 L 12.0-16.0 - g/dl ?Hematocrit 37.1 37.0-47.0 - % ?Mean Corpuscular Volume 92.1 80.0-98.0 - fL ?Mean Corpuscular Hemoglobin 28.0 27.0-33.0 - pg ?Mean Corpuscular HGB Conc 30.5 L 31.0-35.0 - g/dl ?Red Cell Distributio n Width 13.5 11.0-16.0 - % ?Platelet Count 283 160-4 00 - X10*3/uL ?Mean Platelet Volume 11.2 9.4-12.3 - fL ?Neutrophils Percent Auto 60.6 45-73 - % ?Imm Gran Pct Auto 0.3 0. 0-0.4 - % ?Lymphocytes Percent Auto 24.5 20-40 - % ?Monocytes Percent Auto 8.8 2-11 - % ?Eosinophils Percent Auto 5.3 H 0-4 - % ?Basophils Percent Auto 0.5 0-2 - % ?NRBC Pct Auto 0.0 0.0-0. 2 - /100WBC ?Neutrophils Absolute Auto 3.7 2.0-8.3 - x10*3/uL ?Imm Gran Abs Auto 0.02 0. 00-0.03 - X10*3/uL ?Lymphocytes Absolute Auto 1.5 1.2-4.9 - X10*3/uL ?Monocytes Absolute Auto 0.5 0.1-1.2 - X10*3/uL ?Eosinophils Absolute Auto 0.3 0.0-0.4 - X10*3/uL ?Basophils Absolute Auto 0.0 0.0-0.2 - X10*3/uL ?NRBC Abs Auto 0.000 0.0-0. 012 - X10*3/uL ???Lab:UA ClnCatch+Micro w/r flx Cult (Order Date - 03/25/2024) (Collection Date - 03/25/2024) ? Value Reference Range ?Color Urine Yellow - ?Appearance Urine Clear - ?PH 5.5 5.0-9.0 - ?Glucose Urine UA Negative Neg ative - mg/dL ?Urine Blood Negative Negative - ?Specific [place] - Urine >= 1.030 H 1.005-1.025 - ?Urine Protein Negative Neg-Tr mirian - mg/dL ?Urine Ketones Negative Negati ve - mg/dL ?Nitrite Urine Negative Negati ve - ?Leukocyte Esterase Urine Moderate (2+) A Negative - ?RBC Urine 0-2 0-2 - /HPF ?WBC Urine 6-10 A 0-5 - /HPF ?Squamous Epithelial Cell Urine 3-5 0-2 - /HPF ?Bacteria Urine Trace None Seen - ?Hyaline Casts Urine 0-2 0-2 - /LPF * Examination: ???General Examination: ?GENERAL APPEARANCE:?well developed, well nourished, in no acute distress.?HEAD:?normocephalic, atraumatic.?EYES:?pupils equal, round, reactive to light and accommodation, sclera non-icteric.?EARS:?normal.?ORAL CAVITY:?mucosa moist.?THROAT:?clear.?NECK/THYROID:?neck supple, full range of motion, no cervical lymphadenopathy, no bruits.?SKIN:?warm and dry, no suspicious lesions , abnormal with generalized psoriasis.?HEART:?regular rate and rhythm, S1, S2 normal, no murmurs.?LUNGS:?clear to auscultation bilaterally.?BREASTS:?No mass, no lump.?ABDOMEN:?soft, nontender, nondistended, bowel sounds present, normal, no organomegaly , no masses palpable.?RECTAL EXAM:?stool guaiac negative , no masses palpable.?FEMALE GENITOURINARY:?not done.?EXTREMITIES:?no clubbing, cyanosis, or edema.?NEUROLOGIC:?nonfocal, motor strength normal upper and lower extremities, sensory exam intact.? Assessment: * Assessment: 1.?Annual physical exam - Z0 0.00 (Primary)?2.?Generalized arthritis - M19.90?3.?Other psoriasis - L40.8?4.?Essential hypertension - I10?5.?Prediabetes - R73.03?6.?Hypercholesteremia - E78.00?7.?Colon cancer screening - Z12.11?8. Depression screening - Z13.31? Plan: * Treatment: 2.?Generalized arthritis? Notes: no complaints?? 3.?Other psoriasis? Notes: not using her creams?? 4.?Essential hypertension? Continue Lisinopril Tablet, 2.5 MG, Take 1 tablet by mouth once daily.?? Notes: running a little high today. will recheck in 6 months, will continue current regiment?? 5.?Prediabetes? Notes: stable, no need for medication at this time?? 6.?Hypercholesteremia? Continue Atorvastatin Calcium Tablet, 40 MG, Take 1 tablet by mouth once daily.?? Notes: stable, will continue curret regiment at this time?? 7.?Colon cancer screening?LAB: Occult Blood, Stool, Guaiac?Negative ? Value Reference Range ?Occult Blood, Stool, Guaiac Neg Notes: guaiac negative??8.?Depression screening? Notes: negative screen??9.?Others? Notes: needs to restart vit d. she has some at home?? * Procedure Codes:?22812 TEST FOR BLOOD, FECES * Follow Up:?6 Months * * Sign off status: Completed true * Provider:?Juan Quarles MD Date:?06/01/2023 Generated for Rocky cunningham/Angella/Sussy on:?09/23/2024 11:04 AM EDT History and Physical Notes * HPI (History [...] had two or more falls in the year?: No Communication Needs Communication Needs Does the patient have a hearing impairment: No Does the patient have a vision impairmen t?: Yes ?If yes, what is the vision impairment?: Glasses Does the patient have a cognition impair ment?: Yes Examination Category Sub-Category Detail Notes Category Not es General Examination GENERAL APPEARANCE: well dev eloped, well nourished, in no acute distress HEAD: normocephalic, atrau matic EYES: pupils equal, round, reactive to light and accommodation, sclera non- icteric EARS: normal THROAT: clear NECK/THYROID: neck supple, [...]
--- OUTSIDE RECORDS SUMMARY | 2024-09-23 11:04 | XMS_ITS ---
Author Organization Juan Quarles MD Address [address] [place] [phone] Care Team Providers Care Pediatric Np Name Role Phone Juan Quarles Primary Care Provider Results Component Value Reference Range Notes Hemoglobin A1c (Not yet revi ewed by provider) Interpretation: Performing Lab:[facility], [address] [place] [id number] Notes/Report: Hemoglobin A1c % 5.5 <6.0 % [...] average glucose, using the formula of the E8V-Wevtgqs Average Glucose study (ADAG), Diabetes Care, Vol.31,#8, Dec. 2007 REASON FOR VISIT fasting lipids Encounters Encounter Location Date Provider Diagnosis Juan Quarles MD [address] [place] [phone] 09/23/2024 Juan Quarles Prediabetes R73.03 a nd Hypercholesteremia E78.00 Assessments Encounter Date Diagnosis (ICD Code) Assessment Notes Treatment Notes Treatment Clinical Notes Section Notes 09/23/2024 Prediabetes (ICD-10 - R73.03) 09/23/2024 Hypercholesteremia (ICD-10 - E78.00) Plan Of Treatment Pending Test Test Name Order Date Liver Panel 09/23/2024 Glucose Fasting 09/23/2024 Lipid Panel with Reflex 09/23/2024 Hemoglobin A1c 09/23/2024 Next Appt Details Provider Name:Juan Ortez ier, 09/30/2024 02:00:00 PM, [address], [address], [place], [phone], Provider Name:Juan Ortez ier, 04/02/2025 07:00:00 AM, [address], [address], [place], [phone], Provider Name:Juan Ortez ier, 04/07/2025 01:00:00 PM, [address], [address], [place], [phone], Progress Notes * Cara OLSONDOB:1940 (84 yo F)Acc No.[id number]:09/23/2024 Progress Note Patient:?Cara OLSON Provider:?Juan Quarles MD :1940???Age:84 Y???Sex:Female D ate:09/23/2024 Address:[address] [place] [id number] Subjective: * Chief Complaints: * ???1. Fasting lipids. * Medical History:? Objective: * Vitals:? Assessment: * Assessment: 1.?Prediabetes - R73.03 (Isis nia)???2.?Hypercholesteremia - E78.00??? Plan: * Treatment: 2.?Hypercholesteremia?LAB: Liver Panel ?LAB: Glucose Fasting ?LAB: Lipid Panel with Reflex ?LAB: Hemoglobin A1c (Collection Date & Time - 09/23/2024 07:30 AM) * Procedure Codes:?18771 VENIP UNCT, ROUTINE*, 91882 VENIPUNCT, ROUTINE* * * The named appointment provid er may or may not be the originator of this progress note, and it is not deemed complete until electronically signed by the appointment provider. Sign off status: Pending * Provider:?Juan Quarles MD Date:?0 09/23/2024 Generated for Rocky cunningham/Angella/Jeseitting on:?09/23/2024 11:03 AM EDT
--- OUTSIDE RECORDS SUMMARY | 2024-09-23 11:04 | XMS_ITS | Patient Health Record ---
Author Organization [facility] Address [address] [place] [address] Care Team Providers Care Director It Project Name Role Phone Juan Quarles MD Primary Care Provider Agustín Lizama Unavailable [phone] Allergies Allergen (clinical drug ingredient) Drug/Non Drug Allergy documented on EMR Reaction Allergy Type Onset Date Status Aleve hives Drug Allergy Active Shellfish (FN) Shellfish-derived Products anaphylaxis Drug Allergy Active Reason For Referral No Information Medications Medication SIG (Take, Route, Frequency, Duration) Notes Start Date End Date Status dexAMETHasone Sodium Phosphate 4 MG/ML 1 ml for use in iontophoresis as scheduled for as needed 03/27/2012 Not-Taki ng Piroxicam 20 MG 1 capsule with food Orally Once a day for 30 day(s) 03/06/2012 Not-Taking Physical Therapy . . . 2-3x/week for 3- 4 weeks 03/06/2012 Not-Taking Halobetasol Propionate 0.05 % 1 application to affected area Externally Once a day Not-Taking Calcium + D 600-200 MG-UNIT 1 tablet with food Orally Once a day for 30 day(s) Not-Taking [place] 3-6-9 Complex as directed Orally Not-Taking Aspirin 81 MG 1 tablet Orally Once a day for 30 day(s) Active Lisinopril 2.5 MG 1 tablet Orally Once a day for 30 day(s) Active Immunizations Vaccine Route Administration Date Status Comme nts COVID-19 Pfizer BioNTech Vaccine Unknown 07/13/2020 Administered 1st 06/22/2020 2nd 07/13/2020 Social History Tobacco Use: Social History Observation Description Date Details (start date - stop date) Never Smoker NA - NA Tobacco Use/Smoking Question Answer Notes Are you a: nonsmoker Additional Findings: Tobacco Non-User Current no n-smoker Tobacco use other than smoking: Question Answer Notes Are you an other tobacco user? No Problems Problem Type SNOMED Code ICD Code Onset Dates Problem Status W/U Status Risk Notes Problem Acquired hammer toe of right foot (2766037007732 105) Other hammer toe(s) (acquired), right foot (M20.41) Active confirmed Problem Acquired hammer toe of left foot (3831870344764 103) Other hammer toe(s) (acquired), left foot (M20.42) Active confirmed Plan Of Treatment Pending Test Test Name Order Date X ray : Foot, left 2V 03/06/2012 X ray : Foot, right 2V 03/06/2012 [id number] Boot/Pneumatic 04/17/2012 Insurance Providers Payer Name Payer Address Payer Phone Subscriber Number Group Number Insured Name Patient Relationship to Insured Coverage Start Date Coverage End Date AARP Medicare Complete [address] [address] [place] [address] [phone] [id number] Cara Juarez Self - patient is the insured Medical (General) History Medical History History ICD Code cataracts-left eye psoriasis measles Arthritis Stroke Achilles Tendonitis Bursitis 726.71 Plantar Fasciitis 728.71 Myositis 729.1 Pain in Limb 729.5 Bursitis 727.3 Arthritis - Degenerative 719.97 Surgical History Surgery Date(Month/Year) hysterectomy 1965 hernia 1950 breast surgery 1960 Hospitalization History Reason Date(Month/Year) Heart Attack 2018
--- OUTSIDE RECORDS SUMMARY | 2024-09-23 11:04 | XMS_ITS | Patient Health Record ---
Author Organization Juan Quarles MD Address [address] [place], [place] [id number] Care Team Providers Care Wind Field Service Manager Name Role Phone Juan Quarles Primary Care Provider [phone] Allergies Allergen (clinical drug ingredient) Drug/Non Drug Allergy documented on EMR Reaction Allergy Type Onset Date Status naproxen Naprosyn hives Drug Allergy Active Results Component Value Reference Range Notes Complete Blood Count Auto Di ff Reviewed date:03/25/2024 05:02:03 PM Interpretation: Performing Lab:[facility], [address] [place] [phone] Notes/Report: White Blood Count 6.0 4.8-10.8 X10*3/uL [...] 0.0-0.2 /100WBC Neutrophils Absolute Auto 3.7 2.0-8.3 x10*3/uL Imm Gran Abs Auto 0.02 0.00-0.03 X10*3/uL Lymphocytes Absolute Auto 1.5 1.2-4.9 X10*3/uL Monocytes Absolute Auto 0.5 0.1-1.2 X10*3/uL Eosinophils Absolute Auto 0.3 0.0-0.4 X10*3/uL Basophils Absolute Auto 0.0 0.0-0.2 X10*3/uL NRBC Abs Auto 0.000 0.0-0.012 X10*3/uL Comprehensive [place]. Panel Fa st Reviewed date:03/25/2024 05:00:56 PM Interpretation: Performing Lab:[address] [phone] Notes/Report: Sodium 139 135-145 mmol/L Potassium 4.1 3.3-5.1 mmol/L Chloride 104 96-108 mmol/L Carbon Dioxide 26 22-29 mmol/L Anion Gap 13 12-20 Blood Urea Nitrogen 23 9-16 mg/dL Creatinine 0.82 0.5-1.4 mg/dL Estimated Glomerular Filt Rate > 60 NOTE: For -Moldovan individuals, multiply the result by 1.210. Chronic [...] Panel Reviewed date:03/25/2024 01:27:39 PM Interpretation: Performing Lab:[facility], [address] [place] [phone] Notes/Report: Triglycerides 84 <150 mg/dL Desirable Triglyceride: [...] Total Reviewed date:03/25/2024 04:49:01 PM Interpretation: Performing Lab:[address] [phone] Notes/Report: Vitamin D 25-OH Total 22.6 >30 [...] Random Reviewed date:03/25/2024 04:57:57 PM Interpretation: Performing Lab:[facility], [address] [place] [phone] Notes/Report: Creatinine Urine 189.46 Microalbumin Urine 19.0 Microalbum/Creatinine Ratio Ur 10.0 <30 ug/mg cr Albumin/Creatinine Ratio Reference Ranges: Normal: < 30 ug/mg creatinine Microalbuminuria: 30 - 300 ug/mg creatinine Clinical Albuminuria: > 300 ug/mg creatinine Hemoglobin A1c Reviewed date:03/25/2024 04:47:04 PM Interpretation: Performing Lab:[facility], [address] [place] [phone] Notes/Report: Hemoglobin A1c % 5.5 <6.0 % [...] average glucose, using the formula of the K9Q-Mutzkzt Average Glucose study (ADAG), Diabetes Care, Vol.31,#8, Dec. 2007 UA ClnCatch+Micro w/rflx Cul t Reviewed date:03/25/2024 04:58:49 PM Interpretation: Performing Lab:[facility], [address] [place] [phone] Notes/Report: Urine, Clean Catch Color Urine Yellow Appearance Urine Clear PH 5.5 5.0-9.0 Glucose Urine UA Negative Negative mg/dL Urine Blood Negative Negative Specific [place] - Urine >= 1.030 1.005-1.025 Urine Protein Negative Neg-Trace mg/dL Urine Ketones Negative Negative mg/dL Nitrite Urine Negative Negative Leukocyte Esterase Urine Moderate (2+) Negative RBC Urine 0-2 0-2 /HPF WBC Urine 6-10 0-5 /HPF Squamous Epithelial Cell Urine 3-5 0-2 /HPF Bacteria Urine Trace None Seen Hyaline Casts Urine 0-2 0-2 /LPF Hemoglobin A1c (Not yet revi ewed by provider) Interpretation: Performing Lab:[facility], [address] [place] [phone] Notes/Report: Hemoglobin A1c % 5.5 <6.0 % [...] average glucose, using the formula of the E6W-Uklxqzk Average Glucose study (ADAG), Diabetes Care, Vol.31,#8, Dec. 2007 Occult Blood, Stool, Guaiac Reviewed date:04/01/2024 02:37:57 PM Interpretation:Negative Performing Lab: Notes/Report: Negative Occult Blood, Stool, Guaiac Neg MM tomosynthesis screening B I Reviewed date:03/25/2024 09:14:48 AM Interpretation: Performing Lab: Notes/Report: [address] [place], [place] [address] Mammography Report Signed Patient: Cara Juarez MR#: [id number] : 1940 Acct:[id number] Age/Sex: 83 / F ADM Date: 03/14/24 Loc: HO.MAMMO Attending Dr: Juan Quarles MD Ordering Physician: Juan Quarles MD Results: 1Ne gative Date of Service: 03/14/24 Follow Up: 1 Year From Orig ina Mammogram Procedure(s): MM tomosynthesis screening BI Accession Number(s): [id number] cc: Juan Quarles MD EXAMINATION: MM SCREENING DIGITAL BREAST TOMOSYNTHESIS, BILATERAL CLINICAL INFORMATION: Screening. Asymptomatic. COMPARISON: Mammography: Comparison is made with available priors TECHNIQUE: Digital breast mammography with tomosynthesis is performed in both the craniocaudal and mediolateral oblique views along with computer-aided detection (CAD). FINDINGS: There are scattered areas of fibroglandular density (ACR BI-RADS breast composition Category b). There are no significant masses, abnormal calcifications, or other abnormalities. MM/MM tomosynthesis screening BI IMPRESSION: No mammographic evidence of malignancy. ASSESSMENT: BI-RADS BI-RADS 1 - Negative RECOMMENDATION: Routine annual mammography screening. 1 year F/U This examination should not preclude the clinical evaluation of a suspicious palpable abnormality. This patient's information was entered into a reminder system with a target due date for their next mammogram. Electronically signed by: Renuka Canas DO 03/24/2024 08:51 AM [facility] Dictated By: Renuka Canas DO Signed By: <Electronically signed by Renuka Canas DO in OV> 03/24/24 0851 DD/ 1305 TD/TT: 03/14/24 1319 [employer] Laborer: [address] [place] [address] Mammography Report Signed Patient: Cara Juarez MR#: [id number] : 1940 Acct:[id number] Age/Sex: 83 / F ADM Date: 03/14/24 Loc: HO.MAMMO Attending Dr: Juan Quarles MD Ordering Physician: Juan Quarles MD Results: 1Ne gative Date of Service: 03/14/24 Follow Up: 1 Year From Orig inal Mammogram Procedure(s): MM tomosynthesis screening BI Accession Number(s): [id number] cc: Juan Quarles MD EXAMINATION: MM SCREENING DIGITAL BREAST TOMOSYNTHESIS, BILATERAL CLINICAL INFORMATION: Screening. Asymptomatic. COMPARISON: Mammography: Comparison is made with available priors TECHNIQUE: Digital breast mammography with tomosynthesis is performed in both the craniocaudal and mediolateral oblique views along with computer-aided detection (CAD). FINDINGS: There are scattered areas of fibroglandular density (ACR BI-RADS breast composition Category b). There are no significant masses, abnormal calcifications, or other abnormalities. MM/MM tomosynthesis screening BI IMPRESSION: No mammographic evidence of malignancy. ASSESSMENT: BI-RADS BI-RADS 1 - Negative RECOMMENDATION: Routine annual mammography screening. 1 year F/U This examination should not preclude the clinical evaluation of a suspicious palpable abnormality. This patient's information was entered into a reminder system with a target due date for their next mammogram. Electronically selvin d by: Renuka Canas DO 03/24/2024 08:51 AM [facility] Dictated By: Renuka Canas DO Signed By: <Electronically signed by Renuka Canas DO in OV> 03/24/24 0851 DD/ 1305 TD/TT: 03/14/24 1319 [employer] Laborer: Candelario Freeman Reviewed date:03/25/2024 01:26:18 PM Interpretation: Performing Lab:[facility], [address] [place] [phone] Notes/Report: Candelario Freeman See Note Specimen held untested for 24 hours; Call to request Chemistry testing. Urine Culture Reviewed date:03/26/2024 12:20:44 PM Interpretation: Performing Lab:[facility], [address] [place] [phone] Notes/Report: Urine Culture Report Result Urine Culture 50,000 to 100,000 cfu/ml Urine Culture Mixed bacterial pascual a characteristic of Urine Culture urogenital contamination. Hold Gold (Not yet reviewed by provider) Interpretation: Performing Lab:[facility], [address] [place] [phone] Notes/Report: Hold Gold See Note Specimen held untested for 24 hours; Call to request Chemistry testing. Reason For Referral No Information Medications Medication SIG (Take, Route, Frequency, Duration) Notes Start Date End Date Status Betamethasone Dipropionate 0.05 % 1 application to affected area Externally Once a day for 30 days 09/05/2016 Not-Taking Aspir-Low 81 MG 1 tablet Orally Once a day for 30 day(s) Active Lisinopril 2.5 MG Take 1 tablet by once daily Active Alendronate Sodium 70 MG 1 tablet 30 min utes before the first food, beverage or medicine of the day with plain water Orally weekly for 30 day(s) 03/25/2021 Not-Taking Vitamin D-[address] 25 MCG (1000 UT) 1 tablet Orally Once a day for 30 day(s) 03/25/2021 Not-Taking Clobetasol Propionate 0.05 % 1 application to affected area Externally Twice a day for 30 days 04/01/2015 Not-Taking Atorvastatin Calcium 40 MG Take 1 tablet by mouth once daily Active Halobetasol Propionate 0.05 % 1 application to affected area Externally Once a day for 30 days 03/03/2014 Not-Taking Halobetasol Propionate 0.05 % 1 application Externally Once a day 08/29/2022 Active Immunizations Vaccine Route Administration Date Status Comme nts Flu Vaccine IM Intramuscular 05/30/2012 Administered PPSV23 (Pnemovax) IM Intramuscular 05/30/2012 Administered Prevnar 13 Unknown 09/26/2012 Administered Flu Vaccine IM Intramuscular 05/19/2013 Administered PPSV23 (Pnemovax) IM Intramuscular 11/18/2018 Administered Fluarix Quadrivalent IM Intramuscular 04/01/2020 Administe red Covid Vaccine Unknown 06/22/2020 Administered Pfizer Covid Vaccine Unknown 07/13/2020 Administered Pfizer Influenza High Dose Unknown 03/02/2021 Administered SARS-COV-2 Pfizer Unknown 03/02/2021 Administered Influenza High Dose IM Intramuscular 03/25/2024 Administer ed Fluarix Quadrivalent Unknown 05/09/2019 Refused Social History Tobacco Use: Social History Observation [...] ast year? No Points 0 Interpretation Negative Problems Problem Type SNOMED Code ICD Code Onset Dates Problem Status W/U Status Risk Notes Problem 57835571 Age-related osteoporosis without current pathological fracture (M81.0) Active confirmed Problem 94235792 Vitamin D defici ency (E55.9) Active confirmed Problem 902637007 Essential tremor (G25.0) Active confirmed Problem Cerebral infarction (654828458) Cerebral infarction, unspecified (I63.9) Active confirmed Problem 3387399 Other psoriasis (L40.8) Active confirmed Problem 419315518 Rectocele (N81.6) Active confirmed Problem 55760582 Essential hypertension (I10) Active confirmed Problem 2323461 Psoriasis (L40.9) Active confirmed Problem 911709105 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 Problem 404389766 Vaginal bleeding (N93.9) Active confirmed Problem 379213722 Prediabetes (R73.03) Active confirmed Problem 086412950 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) Active confirmed Problem 59181265 Hypercholesterem ia (E78.00) Active confirmed Problem 1850235556693 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) Active confirmed Problem 695262184 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) Active confirmed Vital Signs Blood pressure diastolic 70 mm Hg 04/01/2024 adele ght is down 3 pounds since 09-28-23 Height 60 in 04/01/2024 weight is down 3 pounds since 09-28-23 Blood pressure systolic 142 mm Hg 04/01/2024 weig ht is down 3 pounds since 09-28-23 Weight 133 lbs 04/01/2024 weight is down 3 pounds since 09-28-23 BMI 25.97 kg/m2 04/01/2024 weight is down 3 pounds since 09-28-23 Encounters Encounter Location Date Provider Diagnosis Juan Quarles MD [address] [place] [id number] 03/25/2024 Juan Quarles Blood tests for rout ine general physical examination Z00.00 ; Prediabetes R73.03 ; Vitamin D deficiency E55.9 ; Hypercholesteremia E78.00 ; Essential hypertension I10 and Encounter for immunization Z23 Juan Quarles MD [address] [id number] 09/23/2024 Juan Quarles Prediabetes R73.03 a nd Hypercholesteremia E78.00 Juan Quarles MD [address] [id number] 09/28/2023 Juan Quarles Psoriatic arthritis L40.50 ; Cerebral infarction, unspecified I63.9 ; Prediabetes R73.03 ; Hypercholesteremia E78.00 ; Vaginal bleeding N93.9 ; Skin lesion L98.9 and Essential hypertension I10 Juan Quarles MD [address] [place] [id number] 04/01/2024 Juan Quarles Generalized arthriti s M19.90 [...] - Z00.00) 03/25/2024 Prediabetes (ICD-10 - R73.03) 09/23/2024 Prediabetes (ICD-10 - R73.03) 09/28/2023 Psoriatic arthritis (ICD-10 - L40.50) the changes appear permanent 09/28/2023 Cerebral infarction, unspecified (ICD-10 - I63.9) doing well 04/01/2024 Generalized arthriti s (ICD-10 - M19.90) no complaints 04/01/2024 Annual physical exam (ICD-10 - Z00.00) labs reviewed and discussed with patient 03/25/2024 Vitamin D deficiency (ICD-10 - E55.9) 09/23/2024 Hypercholesteremia (ICD-10 - E78.00) 09/28/2023 Prediabetes (ICD-10 - R73.03) good a1c 04/01/2024 Other psoriasis (ICD-10 - L40.8) not using her creams 03/25/2024 Hypercholesteremia (ICD-10 - E78.00) 09/28/2023 Hypercholesteremia (ICD-10 - E78.00) well controlled, will continue current regiment 04/01/2024 Essential hypertensi on (ICD-10 - I10) running a little high today. will recheck in 6 months, will continue current regiment 03/25/2024 Essential hypertensi on (ICD-10 - I10) 09/28/2023 Vaginal bleeding (ICD-10 - N93.9) not having any problems 04/01/2024 Prediabetes (ICD-10 - R73.03) stable, no need for medication at this time 03/25/2024 Encounter for immunization (ICD-10 - Z23) 09/28/2023 Skin lesion (ICD-10 - L98.9) appears benign. will reevaluate at next visit 04/01/2024 Hypercholesteremia (ICD-10 - E78.00) stable, will continue curret regiment at this time 09/28/2023 Essential hypertensi on (ICD-10 - I10) stable, will continue current regiment 04/01/2024 Colon cancer screeni ng (ICD-10 - Z12.11) guaiac negative 04/01/2024 Depression screening (ICD-10 - Z13.31) negative screen 04/01/2024 Other needs to restart vit d. she has some at home Plan Of Treatment Pending Test Test Name Order Date Electrocardiogram (EKG) 11/17/2016 VITAMIN D, 25-HYDROXY, LC/MS/MS 05/19/20 13 BONE DENSITY DEXA 01/04/2021 Liver Panel 09/23/2024 Glucose Fasting 09/23/2024 Lipid Panel with Reflex 09/23/2024 Hold Gold 09/23/2024 Hemoglobin A1c 09/23/2024 Next Appt Details Provider Name:Juan Ortez ier, 09/30/2024 02:00:00 PM, [address], [address], [place], [phone], Provider Name:Juan Ortez ier, 04/02/2025 07:00:00 AM, [address], [address], [place], [phone], Provider Name:Juan Ortez ier, 04/07/2025 01:00:00 PM, [address], [address], [place], [phone], Insurance Providers Payer Name Payer Address Payer Phone Subscriber Number Group Number Insured Name Patient Relationship to Insured Coverage Start Date Coverage End Date [facility] are [employer] [address] [address] [place] [address] [id number] Cara Juarez Self - patient is the insured Medical (General) History Medical History History ICD Code is able to take aspirin without difficul ty colonoscopy due 2012 2013 done with flat polyps adenoma
--- OUTSIDE RECORDS SUMMARY | 2024-09-23 11:04 | XMS_ITS | Patient Health Record ---
Author Organization [facility] Address [address] [place] [address] Care Team Providers Care Experimental Machinist Name Role Phone Juan Quarles MD Primary Care Provider Bobby Leon [phone] Allergies Allergen (clinical drug ingredient) Drug/Non Drug Allergy documented on EMR Reaction Allergy Type Onset Date Status Non-steroidal anti-inflammatory agent (FN) NSAIDS (uncoded) Unknown Allergy Active Reason For Referral No Information Medications Medication SIG (Take, Route, Fr equency, Duration) Notes Start Date End Date Status Fish Oil 1200 MG 1 capsule Orally Once a day Active Tylenol 325 MG 1 tablet as needed Orally prn Active Calcium 600 MG 1 tablet Orally Once a day Active Immunizations Vaccine Route Administration Date Status Comme nts Influenza Unknown 02/12/2019 Refused Problems Problem Type SNOMED Code ICD Code Onset Dates Problem Status W/U Status Risk Notes Problem 602471168 Encounter for screening for malignant neoplasm of colon (Z12.11) Active confirmed Problem 166938455 History of adenomatous polyp of colon (Z86.010) Active confirmed Problem 221746519532713 Preprocedural examination (Z01.818) Active confirmed Problem 214298576624433 Pre-procedural examination (Z01.818) Active confirmed Problem 13529881 Hypertension, unspecified type (I10) Active confirmed Plan Of Treatment Future Test Test Name Order Date COLONOSCOPY 03/27/2013 COLONOSCOPY 02/12/2019 Insurance Providers Payer Name Payer Address Payer Phone Subscriber Number Group Number Insured Name Patient Relationship to Insured Coverage Start Date Coverage End Date AARP MEDI COMP (REFERR AL REQUIRE D) [address] [address] [place] [address] [id number] RUTH OLSON Self - patient is the insured Medical (General) History Medical History History ICD Code Psoriasis Denies NH,DM,CVA,Lung disease,renal dise ase Colonoscopy in 2008 with rem oval of a flat tubular adenoma with foci of high-grade dysplasia in the transverse colon-this area was inked --F/U colonoscopy in 08/2009 was neg except for a small tubular adenoma--the previous polypectomy site in the transverse colon was neg. for any residual polyp tissue Colonoscopy in 04/2003 with removal of s mall tubular adenomas Colonoscopy in 05/2013 with several small tubular adenomas removed Surgical History Surgery Date(Month/Year) hysterectomy with removal of one ovary hernia surgery breast infection requiring surgery
[2024-09-23 11:08] LABS: Alanine Aminotransferase 13 U/L (0-31); Albumin Level 4.1 g/dL (3.5-5.0); Alkaline Phosphatase 102 U/L (39-117); Aspartate Amino Transferase 25 U/L (5-31); Bilirubin Direct 0.2 mg/dL (0.0-0.5); Bilirubin Total 0.6 mg/dL (0.0-1.0); Cholesterol 163 mg/dL (<200); Glucose Fasting 96 mg/dL (60-99); Total Protein 6.9 g/dL (6.5-8.0); Triglycerides 94 mg/dL (<150)
[2024-09-23 11:38] LABS: HDL Cholesterol 56 mg/dL (>40); LDL Cholesterol Calculated 89 mg/dL (<100)
[2024-09-23 13:58] LABS: Reflex LDLD? No
== END 2024-09-23 09:51 | disposition home or self-care (01) ==
LOC: HO.LNP 09:50
PROVIDERS: Visit Provider Internal Medicine
DX: R73.03 Prediabetes (principal); E78.00 Pure hypercholesterolemia, unspecified
CPT/HCPCS: 80061; 80076; 82947; 83036

== ENCOUNTER 2024-12-29 13:33 | Emergency (ER) | payer MEDICARE, SELFPAY ==
--- NOTE | ~2024-12-29 | CT_ITS ---
CLINICAL HISTORY: headache, nausea CT head without contrast Comparison: None provided Findings: No acute intracranial hemorrhage, transcortical infarct, hydrocephalus or mass effect. Diffuse volume loss. Periventricular and subcortical white matter hypoattenuation likely chronic small-vessel ischemic changes. Chronic lacunar infarct in the left basal ganglia. Intracranial atherosclerosis. Mucosal thickening in the right maxillary sinus. The orbits are within normal limits. No skull fracture. IMPRESSION: 1. No acute intracranial findings. This document has been electronically signed by: Grazyna Villlaobos MD on 12/29/2024 18:18:37
[2024-12-29 13:44] VITALS: BP 200/85; PULSE 77; RESP 18; TEMP 37.1; O2SAT 97; BMI 25.7
--- NOTE | 2024-12-29 13:46 | ED.GENADULT ---
HPI - General Adult General Chief complaint: General Medical Stated complaint: Not Feeling Well Since 12/27/24 ? Food Poisoning Time Seen by Provider: 12/29/24 16:07 History of Present Illness ED Provider: Nathan MENESES narrative: The patient is an 84-year-old woman who has not felt well for almost 3 days. She says that she ate some meat loaf 3 days ago on Sunday. She says that the meat loaf has been in her refrigerator for a couple of days. She started to feel ill sometime after she ate the meat loaf. She had nausea and felt generally unwell for the rest of the weekend. Today she told her daughter that she was feeling unwell and her daughter brought her to the emergency room. The patient at triage said that she was feeling quite bad. When I interviewed her she said that she was feeling considerably better than she had earlier. She said she has been feeling better for about half an hour at the time that I interviewed her. She has had a headache but the headache seems to has been present today, not over the weekend. No definite abdominal pain. No definite diarrhea. No fever, sweats, chills. No chest pain, cough, shortness of breath. No sputum. No pain or swelling in her legs. The patient has a history of having had a stroke in 2019. The daughter says that although the the patient has made a good recovery from the stroke the patient still has some issues with speech. Related Data Allergies Allergy/AdvReac Type Severity Reaction Status Date / Time naproxen (Naprosyn) Allergy Unknown Hives Verified 12/29/24 13:50 No Known Allergies (No Known Allergy Verified 12/29/24 13:50 Allergies*) aleve Allergy Unknown hives Uncoded 06/30/19 00:00 [facility] Social History Social History Advance Directives Date on File: 06/21/19 Physical Exam ED Vital Signs: Vital Signs - 24 hr 12/29/24 13:44 12/29/24 16:20 12/29/24 17:09 Temperature 98.7 F 98.2 F Pulse Rate 77 80 Respiratory Rate 18 19 Blood Pressure 200/85 H 216/85 H 193/78 H Pulse Oximetry 97 98 Oxygen Delivery Method Room Air Room Air 12/29/24 19:02 12/29/24 19:09 Temperature 98.0 F 98.0 F Pulse Rate 61 61 Respiratory Rate 12 12 Blood Pressure 152/59 H 152/59 H Pulse Oximetry 97 97 Oxygen Delivery Method Room Air Room Air BMI result Body Mass Index 25.7 Const Other: The patient is a well-groomed 84-year-old woman who was awake and alert. She looks somewhat chronically ill but not obviously acutely ill in any way. She was pleasant and cooperative. She does not seem in distress. HENMT Other: The face is symmetrical. ?Mucous membranes moist. Eyes Other: Pupils are round equal, conjunctivae are clear, extraocular movements intact Neck Neck: Yes normal visual inspection, Yes full ROM, Yes no lymphadenopathy and Yes no JVD Resp Effort & Inspection: normal respiratory effort Auscultation: clear to auscultation bilaterally Cardio Rate: regular rate Rhythm: regular rhythm Heart sounds: S1 normal heart sound present and S2 normal heart sound present GI Other: Abdomen is soft and seems nontender Skin Other: Skin is pale and dry. 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 Neuro Other: The patient is awake and alert. She looks somewhat frail. She has a frail voice but her speech is clear. Pupils are round equal, extraocular movements are intact, face is symmetrical, she moves her extremities symmetrically and appropriately. She seems grossly neurologically intact Extrem Other: There is no calf swelling or tenderness. No asymmetry. No peripheral edema. Course Course Course Narrative: This is a rapid medical exam performed by Lilian Franklin NP: Additional HPI, ROS, PE not included below will be deferred to primary provider. Patient is an 84-year-old female presenting to the ED with complaint of nausea, abdominal pain. States she saw a doctor Lucrecia who give her injections in her eyes, felt ok after that. Sunday she ate a hamburger with some sides, then developed symptoms. Had two BMs but unsure if they were loose/diarrhea. Hypertensive in triage. Plan: EKG, labs Medications Administered Discontinued Medications Generic Name Dose Route Start Last Admin Trade Name Rosalia PRN Reason Stop Dose Admin Clonidine HCl 0.1 mg 12/29/24 16:24 12/29/24 17:09 Clonidine Hcl 0.1 Mg Tablet PO 12/29/24 16:25 0.1 mg ONCE ONE Administration Protocol Sodium Chloride 1,000 mls @ 999 mls/hr 12/29/24 16:30 12/29/24 18:58 Ns IV 12/29/24 17:30 Infused .Q1H1M [facility] Infusion Medical Decision Making Medical Decision Making MDM Narrative: The patient is a very pleasant 84-year-old woman who describes feeling unwell for about 3 days. Surprisingly she told me that, as I was interviewing her, she has been feeling better for about half an hour here in the emergency room. She describes feeling nauseated over the weekend. She has had a mild headache today. The patient was hypertensive but otherwise did not seem unwell. Your testing in the emergency department including a head CT and labs are quite unremarkable. She was given IV fluids and a dose of clonidine. She is observed. Her blood pressure improved. She continued to say that she was feeling better. She has a an unremarkable EKG, negative troponin, a a normal CRP, an unremarkable CBC. I think she may be safely discharged to continue her regular medications at home and return if worse. She should follow up with her PCP. Lab Data 12/29/24 14:07 12/29/24 14:07 Labs: Lab Results 12/29/24 Range/Units 14:07 WBC 5.4 (4.8-10.8) X10*3/uL RBC 4.28 (4.20-5.50) X10*6/uL Hgb 12.0 (12.0-16.0) g/dl Hct 38.7 (37.0-47.0) % MCV 90.4 (80.0-98.0) fL MCH 28.0 (27.0-33.0) pg MCHC 31.0 (31.0-35.0) g/dl RDW 13.2 (11.0-16.0) % Plt Count 271 (160-400) X10*3/uL MPV 10.1 (9.4-12.3) fL Immature Gran % (Auto) 0.2 (0.0-0.4) % Neut % (Auto) 66.1 (45-73) % Lymph % (Auto) 22.5 (20-40) % Benton % (Auto) 7.6 (2-11) % Eos % (Auto) 3.0 (0-4) % Baso % (Auto) 0.6 (0-2) % Lymph # (Auto) 1.2 (1.2-4.9) X10*3/uL Benton # (Auto) 0.4 (0.1-1.2) X10*3/uL Eos # (Auto) 0.2 (0.0-0.4) X10*3/uL Baso # (Auto) 0.0 (0.0-0.2) X10*3/uL Abs Immat Gran (auto) 0.01 (0.00-0.03) X10*3/uL Absolute Neuts (auto) 3.6 (2.0-8.3) x10*3/uL Absolute Nucleated RBC 0.000 (0.0-0.012) X10*3/uL Nucleated RBC % (auto) 0.0 (0.0-0.2) /100WBC PT 10.7 L (10.9-12.4) SEC INR 0.9 (0.9-1.1) Sodium 145 (135-145) mmol/L Potassium 4.3 (3.3-5.1) mmol/L Chloride 107 (96-108) mmol/L Carbon Dioxide 30 H (22-29) mmol/L Anion Gap 12 (12-20) BUN 23 H (9-16) mg/dL Creatinine 0.81 (0.5-1.4) mg/dL Estim Creat Clear Calc 41.1 Estimated GFR > 60 Random Glucose 99 (60-115) mg/dL Calcium 9.4 (8.4-10.2) mg/dL Magnesium 2.0 (1.6-2.6) mg/dL Total Bilirubin 0.7 (0.0-1.0) mg/dL AST 26 (5-31) U/L ALT 10 (0-31) U/L Alkaline Phosphatase 113 (39-117) U/L Troponin I High Sens 4.7 (<3.5-17.0) ng/L C-Reactive Protein 0.32 (< or = 0.50) mg/dL B-Natriuretic Peptide 51 (<100) pg/mL Total Protein 7.0 (6.5-8.0) g/dL Albumin 4.2 (3.5-5.0) g/dL Lipase 20 (8-78) U/L Independent Interpretation I performed an independent interpretation of an: EKG Interpretation: EKG at 1353 shows normal sinus rhythm at 68 beats per minute. There are no acute ischemic changes. EKG is similar to previous EKG. Discharge Plan Discharge Clinical Impression: Nausea, Headache, Abdominal pain Patient Disposition: Home, Self-Care Additional Instructions: Your testing in the emergency room today seems reassuring. Overall I do not have a good explanation for the symptoms you has been having for the last few days. Please continue your regular medications. Please plan on following up soon with your regular doctor to discuss this episode further. Return to the emergency room if you feel significantly worse. Referrals: Juan Quarles MD [Primary Care Provider, Medical] Interventions: ED Discharge Assessment Last Done: 12/29/24 19:09 Discharge Date/Time: 12/29/24 19:10 Print Language: Gibraltarian
--- NOTE | 2024-12-29 13:49 | ECG_ITS ---
Test Reason : HYPERTENTION Blood Pressure : */* mmHG Vent. 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
[2024-12-29 14:14] LABS: MANUAL DIFF FLAG NO
[2024-12-29 14:18] LABS: Hematocrit 38.7 % (37.0-47.0); Hemoglobin 12.0 g/dl (12.0-16.0); Imm Gran Abs Auto 0.01 X10*3/uL (0.00-0.03); Imm Gran Pct Auto 0.2 % (0.0-0.4); Lymphocytes Absolute Auto 1.2 X10*3/uL (1.2-4.9); Mean Corpuscular HGB Conc 31.0 g/dl (31.0-35.0); Mean Corpuscular Hemoglobin 28.0 pg (27.0-33.0); Mean Corpuscular Volume 90.4 fL (80.0-98.0); NRBC Abs Auto 0.000 X10*3/uL (0.0-0.012); NRBC Pct Auto 0.0 /100WBC (0.0-0.2); Platelet Count 271 X10*3/uL (160-400); Red Blood Count 4.28 X10*6/uL (4.20-5.50); White Blood Count 5.4 X10*3/uL (4.8-10.8)
[2024-12-29 14:20] LABS: INTERNATIONAL NORM RATIO 0.9 (0.9-1.1); Prothrombin Time 10.7 SEC (10.9-12.4)
[2024-12-29 14:30] LABS: Alanine Aminotransferase 10 U/L (0-31); Albumin Level 4.2 g/dL (3.5-5.0); Alkaline Phosphatase 113 U/L (39-117); Anion Gap 12 (12-20); Aspartate Amino Transferase 26 U/L (5-31); Blood Urea Nitrogen 23 mg/dL (9-16); Calcium 9.4 mg/dL (8.4-10.2); Carbon Dioxide 30 mmol/L (22-29); Chloride 107 mmol/L (96-108); Creatinine Clr Calc Pharmacy 41.1; Estimated Glomerular Filt Rate > 60; Lipase 20 U/L (8-78); Magnesium 2.0 mg/dL (1.6-2.6); Potassium 4.3 mmol/L (3.3-5.1); Sodium 145 mmol/L (135-145); Total Protein 7.0 g/dL (6.5-8.0)
[2024-12-29 14:39] LABS: Troponin-I High Sensitivity 4.7 ng/L (<3.5-17.0)
[2024-12-29 16:20] VITALS: BP 216/85; PULSE 80; RESP 19; TEMP 36.8; O2SAT 98
--- OUTSIDE RECORDS SUMMARY | 2024-12-29 16:29 | XMS_ITS | Patient Health Record ---
Author Organization [facility] Address [address] [place] [address] Care Team Providers Care Aircraft Electronics Technical Officer Name Role Phone Juan Quarles MD Primary Care Provider Agustín Lizama Unavailable [phone] Allergies Allergen (clinical drug ingredient) Drug/Non Drug Allergy documented on EMR Reaction Allergy Type Onset Date Status Aleve hives Drug Allergy Active Shellfish (FN) Shellfish-derived Products anaphylaxis Drug Allergy Active Reason For Referral No Information Medications Medication SIG (Take, Route, Frequency, Duration) Notes Start Date End Date Status dexAMETHasone Sodium Phosphate 4 MG/ML 1 ml for use in iontophoresis as scheduled; Duration: as needed 03/27/2012 Not-Taking Piroxicam 20 MG 1 capsule with food Orally Once a day; Duration: 30 day(s) 03/06/2012 Not-Taking Physical Therapy . . . 2-3x/week; Durat ion: 3-4 weeks 03/06/2012 Not-Taking Halobetasol Propionate 0.05 % 1 application to affected area Externally Once a day Not-Taking Calcium + D 600-200 MG-UNIT 1 tablet with food Orally Once a day; Duration: 30 day(s) Not-Taking [place]io 3-6-9 Complex as directed Orally Not-Taking Aspirin 81 MG 1 tablet Orally Once a day; Duration: 30 day(s) Active Lisinopril 2.5 MG 1 tablet Orally Once a day; Duration: 30 day(s) Active Immunizations Vaccine Route Administration Date Status Comme nts COVID-19 Pfizer BioNTBuz Vaccine Unknown 07/13/2020 Administered 1st 06/22/2020 2nd [...] Problem Status W/U Status Risk Notes Problem Other hammer toe(s) (acquired), right foot (M20.41) Active confirmed Problem Acquired hammer toe of left foot (5131201255116 103) Other hammer toe(s) (acquired), left foot (M20.42) Active confirmed Plan Of Treatment Pending Test Test Name Order Date X ray : Foot, left 2V 03/06/2012 X ray : Foot, right 2V 03/06/2012 [id number] Boot/Pneumatic 04/17/2012 Insurance Providers Payer Name Payer Address Payer Phone Subscriber Number Group Number Insured Name Patient Relationship to Insured Coverage Start Date Coverage End Date AARP Medicare Complete [address] [address] [place] [address] [id number] NasreenCara aguero Self - patient is the insured Medical (General) History Medical History History ICD Code cataracts-left eye psoriasis measles Arthritis Stroke Achilles Tendonitis Bursitis 726.71 Plantar Fasciitis 728.71 Myositis 729.1 Pain in Limb 729.5 Bursitis 727.3 Arthritis - Degenerative 719.97 Surgical History Surgery Date(Month/Year) hysterectomy 1965 hernia 1950 breast surgery 1960 Hospitalization History Reason Date(Month/Year) Heart Attack 2019
--- OUTSIDE RECORDS SUMMARY | 2024-12-29 16:29 | XMS_ITS | Patient Health Record ---
Author Organization [facility] Address [address] [place] [address] Care Team Providers Care Blow Down Operator Name Role Phone Juan Quarles MD Primary Care Provider Bobby Leon [phone] Allergies Allergen (clinical drug ingredient) Drug/Non Drug [...] Problem Status W/U Status Risk Notes Problem 617785440 Encounter for screening for malignant neoplasm of colon (Z12.11) Active confirmed Problem 052034906 History of adenomatous polyp of colon (Z86.010) Active confirmed Problem 839521712803697 Preprocedural examination (Z01.818) Active confirmed Problem 946594343532339 Pre-procedural examination (Z01.818) Active confirmed Problem 05224612 Hypertension, unspecified type (I10) Active confirmed Plan Of Treatment Future Test Test Name Order Date COLONOSCOPY 03/27/2013 COLONOSCOPY 02/12/2019 Insurance Providers Payer Name Payer Address Payer Phone Subscriber Number Group Number Insured Name Patient Relationship to Insured Coverage Start Date Coverage End Date AARP MEDI COMP (REFERR AL REQUIRE D) [address] [address] [place] [address] [phone] [id number] RUTH OLSON Self - patient is the insured Medical (General) History Medical History History ICD Code Psoriasis Denies [place],DM,CVA,Lung disease,renal dise ase Colonoscopy in 2008 with [...]
--- OUTSIDE RECORDS SUMMARY | 2024-12-29 16:29 | XMS_ITS | Patient Health Record ---
Author Organization Juan Quarles MD Address [address] [place], [place] [id number] Care Team Providers Care Optics Manufacturing Technician Name Role Phone Juan Quarles Primary Care Provider Allergies Allergen (clinical drug ingredient) Drug/Non Drug Allergy documented on EMR Reaction Allergy Type Onset Date Status naproxen Naprosyn hives Drug Allergy Active Results Component Value Reference Range Notes Complete Blood Count Auto Di ff Reviewed date:03/25/2024 05:02:03 PM Interpretation: Performing Lab:[facility], [address] [place] [phone] Notes/Report: White Blood Count 6.0 4.8-10.8 X10*3/uL [...] NRBC Abs Auto 0.000 0.0-0.012 X10*3/uL Comprehensive Oden. Panel Fa st Reviewed date:03/25/2024 05:00:56 PM Interpretation: Performing Lab:[address] [phone] Notes/Report: Sodium 139 135-145 mmol/L Potassium 4.1 3.3-5.1 mmol/L Chloride 104 96-108 mmol/L Carbon Dioxide 26 22-29 mmol/L Anion Gap 13 12-20 Blood Urea Nitrogen 23 9-16 mg/dL Creatinine 0.82 0.5-1.4 mg/dL Estimated Glomerular Filt Rate > 60 NOTE: For -Peruvian individuals, multiply the result by 1.210. Chronic [...] Panel Reviewed date:03/25/2024 01:27:39 PM Interpretation: Performing Lab:[facility], [address] [place] [phone] Notes/Report: Triglycerides 84 <150 mg/dL Desirable Triglyceride: [...] Total Reviewed date:03/25/2024 04:49:01 PM Interpretation: Performing Lab:[address] [phone] Notes/Report: Vitamin D 25-OH Total 22.6 >30 [...] Random Reviewed date:03/25/2024 04:57:57 PM Interpretation: Performing Lab:[facility], [address] [place] [phone] Notes/Report: Creatinine Urine 189.46 Microalbumin Urine 19.0 Microalbum/Creatinine Ratio Ur 10.0 <30 ug/mg cr Albumin/Creatinine Ratio Reference Ranges: Normal: < 30 ug/mg creatinine Microalbuminuria: 30 - 300 ug/mg creatinine Clinical Albuminuria: > 300 ug/mg creatinine Hemoglobin A1c Reviewed date:03/25/2024 04:47:04 PM Interpretation: Performing Lab:[facility], [address] [place] [phone] Notes/Report: Hemoglobin A1c % 5.5 <6.0 % [...] average glucose, using the formula of the X7J-Navcnzy Average Glucose study (ADAG), Diabetes Care, Vol.31,#8, Dec. 2007 UA ClnCatch+Micro w/rflx Cul t Reviewed date:03/25/2024 04:58:49 PM Interpretation: Performing Lab:[address] [phone] Notes/Report: Urine, Clean Catch Color Urine Yellow Appearance Urine Clear PH 5.5 5.0-9.0 Glucose Urine UA Negative Negative mg/dL Urine Blood Negative Negative Specific Oglesby - Urine >= 1.030 1.005-1.025 Urine Protein Negative Neg-Trace mg/dL Urine Ketones Negative Negative mg/dL Nitrite Urine Negative Negative Leukocyte Esterase Urine Moderate (2+) Negative RBC Urine 0-2 0-2 /HPF WBC Urine 6-10 0-5 /HPF Squamous Epithelial Cell Urine 3-5 0-2 /HPF Bacteria Urine Trace None Seen Hyaline Casts Urine 0-2 0-2 /LPF Liver Panel Reviewed date:09/23/2024 04:55:24 PM Interpretation: Performing Lab:[address] [phone] Notes/Report: Bilirubin Total 0.6 0.0-1.0 mg/dL Bilirubin Direct 0.2 0.0-0.5 mg/dL Aspartate Amino Transferase 25 5-31 U/L Alanine Aminotransferase 13 0-31 U/L Total Protein 6.9 6.5-8.0 g/dL Albumin Level 4.1 3.5-5.0 g/dL Alkaline Phosphatase 102 39-117 U/L Glucose Fasting Reviewed date:09/23/2024 04:51:08 PM Interpretation: Performing Lab:[address] [phone] Notes/Report: Glucose Fasting 96 60-99 mg/dL Lipid Panel with Reflex Reviewed date:09/23/2024 04:54:51 PM Interpretation: Performing Lab:[facility], [address] [place] [phone] Notes/Report: Triglycerides 94 <150 mg/dL Desirable Triglyceride: [...] A1c Reviewed date:09/23/2024 12:05:10 PM Interpretation: Performing Lab:[facility], [address] [place] [phone] Notes/Report: Hemoglobin A1c % 5.5 <6.0 % [...] average glucose, using the formula of the S2Y-Auiplza Average Glucose study (ADAG), Diabetes Care, Vol.31,#8, Dec. 2007 Occult Blood, Stool, Guaiac Reviewed date:04/01/2024 02:37:57 PM Interpretation:Negative Performing Lab: Notes/Report: Negative Occult Blood, Stool, Guaiac Neg MM tomosynthesis screening B I Reviewed date:03/25/2024 09:14:48 AM Interpretation: Performing Lab: Notes/Report: [address] [place] [address] Mammography Report Signed Patient: Cara Juarez MR#: [id number] : 1940 Acct:[id number] Age/Sex: 83 / F ADM Date: 03/14/24 Loc: MAMMO Attending Dr: Juan Quarles MD Ordering Physician: Juan Quarles MD Results: 1Ne gative Date of Service: 03/14/24 Follow Up: 1 Year From Orig inal Mammogram Procedure(s): MM tomosynthesis screening BI Accession Number(s): [id number] cc: Juan Quarles MD EXAMINATION: MM SCREENING [...] by: Renuka Canas DO 03/24/2024 08:51 AM EST Dictated By: Renuka Canas DO Signed By: <Electronically signed by Renuka Canas DO in OV> 03/24/24 0851 DD/ 1305 TD/TT: 03/14/24 1319 Extractor Operator Solvent Process: [place] [address] [place] [address] Mammography Report Signed Patient: Cara Juarez MR#: [id number] : 1940 Acct:[id number] Age/Sex: 83 / F ADM Date: 03/14/24 Loc: MAMMO Attending Dr: Juan Quarles MD Ordering Physician: Juan Quarles MD Results: 1Ne gative Date of Service: 03/14/24 Follow Up: 1 Year From [facility] Mammogram Procedure(s): MM tomosynthesis screening BI Accession Number(s): [id number] cc: Juan Quarles MD EXAMINATION: MM SCREENING [...] by: Renuka Canas DO 03/24/2024 08:51 AM [facility] Dictated By: Renuka Cansa DO Signed By: <Electronically signed by Renuka Canas DO in OV> 03/24/24 0851 DD/ 1305 TD/TT: 03/14/24 1319 Extractor Operator Solvent Process: Candelario Freeman Reviewed date:03/25/2024 01:26:18 PM Interpretation: Performing Lab:[facility], [address] [place] [phone] Notes/Report: Candelario Freeman See Note Specimen held untested for 24 hours; Call to request Chemistry testing. Urine Culture Reviewed date:03/26/2024 12:20:44 PM Interpretation: Performing Lab:[address] [phone] Notes/Report: Urine Culture Report Result Urine Culture 50,000 to 100,000 cfu/ml Urine Culture Mixed bacterial pascual a characteristic of Urine Culture urogenital contamination. Candelario Freeman Reviewed date:09/23/2024 12:03:16 PM Interpretation: Performing Lab:[facility], [address] [place] [phone] Notes/Report: Candelario rFeeman See Note Specimen held untested for 24 hours; Call to request Chemistry testing. Complete Blood Count Auto Di ff (Not yet reviewed by provider) Interpretation: Performing Lab:[facility], [address] [place] [phone] Notes/Report: White Blood Count 5.4 4.8-10.8 X10*3/uL Red Blood Count 4.28 4.20-5.50 X10*6/uL Hemoglobin 12.0 12.0-16.0 g/dl Hematocrit 38.7 37.0-47.0 % Mean Corpuscular Volume 90.4 80.0-98.0 fL Mean Corpuscular Hemoglobin 28.0 27.0-33.0 pg Mean Corpuscular HGB Conc 31.0 31.0-35.0 g/dl Red Cell Distribution Width 13.2 11.0-16.0 % Platelet Count 271 160-400 X10*3/uL Mean Platelet Volume 10.1 9.4-12.3 fL Neutrophils Percent Auto 66.1 45-73 % Imm Gran Pct Auto 0.2 0.0-0.4 % Lymphocytes Percent Auto 22.5 20-40 % Monocytes Percent Auto 7.6 2-11 % Eosinophils Percent Auto 3.0 0-4 % Basophils Percent Auto 0.6 0-2 % NRBC Pct Auto 0.0 0.0-0.2 /100WBC Neutrophils Absolute Auto 3.6 2.0-8.3 x10*3/uL Imm Gran Abs Auto 0.01 0.00-0.03 X10*3/uL Lymphocytes Absolute Auto 1.2 1.2-4.9 X10*3/uL Monocytes Absolute Auto 0.4 0.1-1.2 X10*3/uL Eosinophils Absolute Auto 0.2 0.0-0.4 X10*3/uL Basophils Absolute Auto 0.0 0.0-0.2 X10*3/uL NRBC Abs Auto 0.000 0.0-0.012 X10*3/uL Prothrombin Time INR (Not ye t reviewed by provider) Interpretation: Performing Lab:[facility], [address] [place] [phone] Notes/Report: Prothrombin Time 10.7 10.9-12.4 SEC INTERNATIONAL NORM RATIO 0.9 0.9-1.1 INTERNATIONAL NORMALIZED RATIO (INR) REFERENCE RANGES Reference Range For patients not on anticoagulant therapy: 0.9 - 1.1 INR ranges for oral anticoagulant therapy: For prevention and treatment of venous thrombosis and pulmonary embolism: 2.0 - 3.0 For acute myocardial infarction with aspirin therapy: 2.0 - 3.0 For acute myocardial infarction without aspirin therapy: 3.0 - 4.0 For patients with mechanical prosthetic heart valves: 2.5 - 3.5 Comprehensive Met. Panel (No t yet reviewed by provider) Interpretation: Performing Lab:[address] [phone] Notes/Report: Sodium 145 135-145 mmol/L Potassium 4.3 3.3-5.1 mmol/L Chloride 107 96-108 mmol/L Carbon Dioxide 30 22-29 mmol/L Anion Gap 12 12-20 Blood Urea Nitrogen 23 9-16 mg/dL Creatinine 0.81 0.5-1.4 mg/dL Creatinine Clr Calc Pharmacy 41.1 Provided height and weight: 152.4 cm, 59.8 kg. eGFR (calculated from the MDRD study equation) and eCrCl (calculated from the Cockcroft-Gault equation) are based on different parameters and may not yield comparable results. If eCrCl result is absurd, please check patient's height/weight. Estimated Glomerular Filt Rate > 60 Chronic Kidney Disease: Estimated GFR < 60 mL/min/1.73m2 Severe Kidney Disease: Estimated GFR < 15 mL/min/1.73m2 Glucose Random 99 60-115 mg/dL Calcium 9.4 8.4-10.2 mg/dL Bilirubin Total 0.7 0.0-1.0 mg/dL Aspartate Amino Transferase 26 5-31 U/L Alanine Aminotransferase 10 0-31 U/L Total Protein 7.0 6.5-8.0 g/dL Albumin Level 4.2 3.5-5.0 g/dL Alkaline Phosphatase 113 39-117 U/L Magnesium (Not yet reviewed by provider) Interpretation: Performing Lab:[facility], [address] [place] [phone] Notes/Report: Magnesium 2.0 1.6-2.6 mg/dL Troponin-I High Sensitivity (Not yet reviewed by provider) Interpretation: Performing Lab:[facility], [address] [place] [phone] Notes/Report: Troponin-I High Sensitivity 4.7 <3.5-17.0 ng/L The Leon high sensitivity Troponin-I results should be used in conjunction with other diagnostic information such as ECG, clinical observations and information, and patient symptoms to aid in the diagnosis of GA. Lipase (Not yet reviewed by provider) Interpretation: Performing Lab:[facility], [address] [place] [phone] Notes/Report: Lipase 20 8-78 U/L Reason For Referral No Information Medications Medication [...] a day for 30 days 04/01/2015 Not-Taking Immunizations Vaccine Route Administration Date Status Comme [...] Problem Status W/U Status Risk Notes Problem 11355710 Age-related osteoporosis without current pathological fracture (M81.0) Active confirmed Problem 52941829 Vitamin D defici ency (E55.9) Active confirmed Problem 938214648 Essential tremor (G25.0) Active confirmed Problem Cerebral infarction (858297015) Cerebral infarction, unspecified (I63.9) Active confirmed Problem 9410549 Other psoriasis (L40.8) Active confirmed Problem 166402158 Rectocele (N81.6) Active confirmed Problem 04644853 Essential hypertension (I10) Active confirmed Problem 4055931 Psoriasis (L40.9) Active confirmed Problem 647346769 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 Problem 882023342 Vaginal bleeding (N93.9) Active confirmed Problem 630776208 Prediabetes (R73.03) Active confirmed Problem 075794163 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) Active confirmed Problem 37475545 Hypercholesterem ia (E78.00) Active confirmed Problem 3996592862494 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) Active confirmed Problem 433794524 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) Active confirmed Vital Signs Blood pressure diastolic 66 mm Hg 10/30/2024 Height 60 in 10/30/2024 Blood pressure systolic 128 mm Hg 10/30/2024 Weight 135 lbs 10/30/2024 BMI 26.36 kg/m2 10/30/2024 Encounters Encounter Location Date Provider Diagnosis Juan Quarles MD [address] [place] [phone] 03/25/2024 Juan Quarles Blood tests for rout ine general physical examination Z00.00 ; Prediabetes R73.03 ; Vitamin D deficiency E55.9 ; Hypercholesteremia E78.00 ; Essential hypertension I10 and Encounter for immunization Z23 Juan Quarles MD [address] [id number] 09/23/2024 Juan Quarles Prediabetes R73.03 a nd Hypercholesteremia E78.00 Juan Quarles MD [address] [id number] 04/01/2024 Juan Quarles Generalized arthriti s M19.90 ; Annual physical exam Z00.00 ; Other psoriasis L40.8 ; Essential hypertension I10 ; Prediabetes R73.03 ; Hypercholesteremia E78.00 ; Colon cancer screening Z12.11 and Depression screening Z13.31 Juan Quarles MD [address] [place] [id number] 09/30/2024 Juan Quarles Prediabetes R73.03 a nd Vaginal bleeding N93.9 Juan Quarles MD [address] [id number] 10/30/2024 Juan Quarles Essential hypertensi on I10 and Vaginal bleeding N93.9 Juan Quarles MD [address] [id number] 09/30/2024 Juan Quarles Assessments Encounter Date Diagnosis (ICD Code) Assessment Notes Treatment Notes Treatment Clinical Notes Section Notes 03/25/2024 Blood tests for routine general physical examination (ICD-10 - Z00.00) 03/25/2024 Prediabetes (ICD-10 - R73.03) 09/23/2024 Prediabetes (ICD-10 - R73.03) 04/01/2024 Generalized arthriti s (ICD-10 - M19.90) no complaints 04/01/2024 Annual physical exam (ICD-10 - Z00.00) labs reviewed and discussed with patient 09/30/2024 Prediabetes (ICD-10 - R73.03) stable, no need for medication at this time 09/30/2024 Vaginal bleeding (ICD-10 - N93.9) referral to dr william at [facility]/ need notes from [facility] this year. daughter will get her appt with customer program specialist 10/30/2024 Essential hypertensi on (ICD-10 - I10) 10/30/2024 Vaginal bleeding (ICD-10 - N93.9) has resolved and was evaluated at the customer program specialist 03/25/2024 Vitamin D deficiency (ICD-10 - E55.9) 09/23/2024 Hypercholesteremia (ICD-10 - E78.00) 04/01/2024 Other psoriasis (ICD-10 - L40.8) not using her creams 03/25/2024 Hypercholesteremia (ICD-10 - E78.00) 04/01/2024 Essential hypertensi on (ICD-10 - I10) running a little high today. will recheck in 6 months, will continue current regiment 03/25/2024 Essential hypertensi on (ICD-10 - I10) 04/01/2024 Prediabetes (ICD-10 - R73.03) stable, no need for medication at this time 03/25/2024 Encounter for immunization (ICD-10 - Z23) 04/01/2024 Hypercholesteremia (ICD-10 - E78.00) stable, will [...] LC/MS/MS 05/19/20 13 BONE DENSITY DEXA 01/04/2021 Complete Blood Count Auto Diff Prothrombin Time INR 12/29/2024 Comprehensive Met. Panel 12/29/2024 Magnesium 12/29/2024 Troponin-I High Sensitivity 12/29/2024 Lipase 12/29/2024 Next Appt Details Provider Name:Juan Ortez ier, 04/02/2025 07:00:00 AM, [address], [address], [place], [place], [phone], Provider Name:Juan Ortez ier, 04/07/2025 01:00:00 PM, [address], [address], [place], [place], [phone], Insurance Providers Payer Name Payer Address Payer Phone Subscriber Number Group Number Insured Name Patient Relationship to Insured Coverage Start Date Coverage End Date [facility] are [employer] [address] [address] [place] [address] [id number] Cara Juarez Self - patient is the insured Medical (General) History Medical History History ICD Code is able to take aspirin without difficul ty colonoscopy due 2012 2013 done with flat polyps adenoma
[2024-12-29 16:58] LABS: B Type Natriuretic Peptide 51 pg/mL (<100)
[2024-12-29 17:09] VITALS: BP 193/78
[2024-12-29 19:02] VITALS: BP 152/59; PULSE 61; RESP 12; TEMP 36.7; O2SAT 97
[2024-12-29 19:09] VITALS: BP 152/59; PULSE 61; RESP 12; TEMP 36.7; O2SAT 97
== END 2024-12-29 19:10 | disposition home or self-care (01) ==
PROVIDERS: Registered Nurse Emergency; Emergency Provider Emergency Medicine; PCP Internal Medicine
DX: R11.0 Nausea (principal); R10.9 Unspecified abdominal pain; R51.9 Headache, unspecified
CPT/HCPCS: 36415; 70450; 80053; 83690; 83735; 83880; 84484; 85025; 85610; 86140; 93005; 96360; 96361; 99284; 99285

== ENCOUNTER → 2024-12-29 13:49 | Outpatient (BNV) | payer MEDICARE, SELFPAY | PROVIDERS: Emergency Provider Emergency Medicine; PCP Internal Medicine; Visit Provider Internal Medicine Cardiovascular Disease | DX: I25.2 Old myocardial infarction (principal) | CPT/HCPCS: 93010 ==

== ENCOUNTER → 2024-12-29 16:25 | Outpatient (BNV) | payer MEDICARE, SELFPAY | PROVIDERS: Emergency Provider Emergency Medicine; PCP Internal Medicine; Visit Provider Radiology Diagnostic Radiology | DX: R51.9 Headache, unspecified (principal) | CPT/HCPCS: 70450 ==

== ENCOUNTER 2025-03-20 12:54 | Outpatient (REF) | payer MEDICARE, SELFPAY ==
--- NOTE | ~2025-03-20 | MM_ITS ---
EXAMINATION: MM SCREENING DIGITAL BREAST TOMOSYNTHESIS, BILATERAL CLINICAL INFORMATION: Screening. Asymptomatic. COMPARISON: Mammography: Comparison is made with available priors TECHNIQUE: Digital breast mammography with tomosynthesis is performed in both the craniocaudal and mediolateral oblique views along with computer-aided detection (CAD). FINDINGS: There are scattered areas of fibroglandular density. There are no significant masses, abnormal calcifications, or other abnormalities. MM/MM tomosynthesis screening BI IMPRESSION: No mammographic evidence of malignancy. ASSESSMENT: BI-RADS Category 1: Negative RECOMMENDATION: Routine annual mammography screening. 1 year F/U This examination should not preclude the clinical evaluation of a suspicious palpable abnormality. This patient's information was entered into a reminder system with a target due date for their next mammogram. Electronically signed by: Renuka Canas DO 03/24/2025 12:06 PM CYNDI
== END 2025-03-20 12:55 | disposition home or self-care (01) ==
LOC: HO.MAMMO 12:54
PROVIDERS: PCP Internal Medicine; Visit Provider Internal Medicine
DX: Z12.31 Encounter for screening mammogram for malignant neoplasm of breast (principal)
CPT/HCPCS: 77063; 77067

== ENCOUNTER → 2025-03-20 13:00 | Outpatient (BNV) | payer MEDICARE, SELFPAY | PROVIDERS: PCP Internal Medicine; Visit Provider Internal Medicine | DX: Z12.31 Encounter for screening mammogram for malignant neoplasm of breast (principal) | CPT/HCPCS: 77063; 77067 ==

== ENCOUNTER 2025-04-02 11:18 | Outpatient (REF) | payer MEDICARE, SELFPAY ==
--- OUTSIDE RECORDS SUMMARY | 2024-03-25 03:30 | XMS_ITS ---
Author Organization Juan Quarles MD Address [address] [place], [place] [id number] Care Team Providers Care Case Supervisor Name Role Phone Juan Quarles Primary Care Provider Results Component Value Reference Range Notes Complete Blood Count Auto Di ff Reviewed date:03/25/2024 05:02:03 PM Interpretation: Performing Lab:[facility], [address] [place] [phone] Notes/Report: White Blood Count 6.0 4.8-10.8 X10*3/uL Red Blood Count 4.03 4.20-5.50 X10*6/uL Hemoglobin 11.3 12.0-16.0 g/dl Hematocrit 37.1 37.0-47.0 % Mean Corpuscular Volume 92.1 80.0-98.0 fL Mean Corpuscular Hemoglobin 28.0 27.0-33.0 pg Mean Corpuscular HGB Conc 30.5 31.0-35.0 g/dl Red Cell Distribution Width 13.5 11.0-16.0 % Platelet Count 283 160-400 X10*3/uL Mean Platelet Volume 11.2 9.4-12.3 fL Neutrophils Percent Auto 60.6 45-73 % Imm Gran Pct Auto 0.3 0.0-0.4 % Lymphocytes Percent Auto 24.5 20-40 % Monocytes Percent Auto 8.8 2-11 % Eosinophils Percent Auto 5.3 0-4 % Basophils Percent Auto 0.5 0-2 % NRBC Pct Auto 0.0 0.0-0.2 /100WBC Neutrophils Absolute Auto 3.7 2.0-8.3 x10*3/u L Imm Gran Abs Auto 0.02 0.00-0.03 X10*3/uL Lymphocytes Absolute Auto 1.5 1.2-4.9 X10*3/u L Monocytes Absolute Auto 0.5 0.1-1.2 X10*3/uL Eosinophils Absolute Auto 0.3 0.0-0.4 X10*3/u L Basophils Absolute Auto 0.0 0.0-0.2 X10*3/uL NRBC Abs Auto 0.000 0.0-0.012 X10*3/uL Comprehensive [place]. Panel Fa st Reviewed date:03/25/2024 05:00:56 PM Interpretation: Performing Lab:[facility], [address] [place] [phone] Notes/Report: Sodium 139 135-145 mmol/L Potassium 4.1 3.3-5.1 mmol/L Chloride 104 96-108 mmol/L Carbon Dioxide 26 22-29 mmol/L Anion Gap 13 12-20 Blood Urea Nitrogen 23 9-16 mg/dL Creatinine 0.82 0.5-1.4 mg/dL Estimated Glomerular Filt Rate > 60 NOTE: For -Scottish individuals, multiply the result by 1.210. Chronic Kidney Disease: Estimated GFR < 60 mL/min/1.73m2 Severe Kidney Disease: Estimated GFR < 15 mL/min/1.73m2 Glucose Fasting 89 60-99 mg/dL Calcium 9.6 8.4-10.2 mg/dL Bilirubin Total 0.8 0.0-1.0 mg/dL Aspartate Amino Transferase 26 5-31 U/L Alanine Aminotransferase 10 0-31 U/L Total Protein 7.0 6.5-8.0 g/dL Albumin Level 4.1 3.5-5.0 g/dL Alkaline Phosphatase 103 39-117 U/L Lipid Panel Reviewed date:03/25/2024 01:27:39 PM Interpretation: Performing Lab:[facility], [address] [place] [phone] Notes/Report: Triglycerides 84 <150 mg/dL Desirable Triglyceride: less than 150 mg/dL Borderline High Triglyceride 150-199 mg/dL High Triglyceride: 200-499 mg/dL Very High Triglyceride: greater than or equal to 5OO mg/dL Cholesterol 151 <200 mg/dL Desirable Cholesterol: less than 200 mg/dL Borderline High Cholesterol: 200-239 mg/dL High Cholesterol: greater than 239 mg/dL LDL Cholesterol Calculated 83 <100 mg/dL Desirable LDL: less than 100 mg/dL Near Optimal/Above Optimal LDL: 110-129 mg/dL Borderline High LDL: 130-159 mg/dL High LDL: 160-189 mg/dL Very High LDL: greater than or equal to 190 mg/dL HDL Cholesterol 52 >40 mg/dL Desirable HDL: greater than 40 mg/dL Note: This HDL assay may give artificially low results in patients with liver disease. Vitamin D 25-OH Total Reviewed date:03/25/2024 04:49:01 PM Interpretation: Performing Lab:[facility], [address] [place] [phone] Notes/Report: Vitamin D 25-OH Total 22.6 >30 ng/mL Health Based Reference Values* < 20 ng/mL Deficient 20-30 ng/mL Insufficient > 30 ng/mL Sufficient *Brian HENDERSON. N Engl J Med. 2007;357:266-280 Care must be taken in interpreting Vitamin D results from different laboratories and methodologies. Published data demonstrated that results from patients undergoing hemodialysis may show a negative bias when tested with various automated 25-OH vitamin D assays when compared to LC-MS/MS. When testing samples from patients whose predominant form of Vitamin D is Vitamin D2, such as patients receiving Vitamin D2 supplementation, results that are subtherapeutic should be confirmed with another method such as LC-MS/MS. Microalbumin, Random Reviewed date:03/25/2024 04:57:57 PM Interpretation: Performing Lab:[facility], [address] [place] [phone] Notes/Report: Creatinine Urine 189.46 Microalbumin Urine 19.0 Microalbum/Creatinine Ratio Ur 10.0 <30 ug/mg cr Albumin/Creatinine Ratio Reference Ranges: Normal: < 30 ug/mg creatinine Microalbuminuria: 30 - 300 ug/mg creatinine Clinical Albuminuria: > 300 ug/mg creatinine Hemoglobin A1c Reviewed date:03/25/2024 04:47:04 PM Interpretation: Performing Lab:[facility], [address] [place] [phone] Notes/Report: Hemoglobin A1c % 5.5 <6.0 % Hemoglobin A1C Reference Range Adults: 4.8 - 6.0 % Non diabetic: < 6.0 % Goal: < 7.0 % Additional Action Suggested: > 8.0 % Note: Hemoglobin A1c results are invalid for patients with abnormal amounts of HbF. Blood transfusions may impact the HbA1c concentration in the patient sample. Estimated Average Glucose 111 eAG = Estimated average glucose which is %A1C expressed as average glucose, using the formula of the G1O-Kspqmpa Average Glucose study (ADAG), Diabetes Care, Vol.31,#8, Dec. 2007 UA ClnCatch+Micro w/rflx Cul t Reviewed date:03/25/2024 04:58:49 PM Interpretation: Performing Lab:[facility], [address] [place] [phone] Notes/Report: Urine, Clean Catch Color Urine Yellow Appearance Urine Clear PH 5.5 5.0-9.0 Glucose Urine UA Negative Negative mg/dL Urine Blood Negative Negative Specific [place] - Urine >= 1.030 1.005-1.025 Urine Protein Negative Neg-Trace mg/dL Urine Ketones Negative Negative mg/dL Nitrite Urine Negative Negative Leukocyte Esterase Urine Moderate (2+) Negative RBC Urine 0-2 0-2 /HPF WBC Urine 6-10 0-5 /HPF Squamous Epithelial Cell Urine 3-5 0-2 /HPF Bacteria Urine Trace None Seen Hyaline Casts Urine 0-2 0-2 /LPF REASON FOR VISIT FASTING LABS Immunizations Vaccine Route Administration Date Status Comme nts Influenza High Dose IM Intramuscular 03/25/2024 Administer ed Encounters Encounter Location Date Provider Diagnosis Juan Quarles MD [address] [place], [place] [id number] 03/25/2024 Juan Quarles Blood tests for rout ine general physical examination Z00.00 ; Prediabetes R73.03 ; Vitamin D deficiency E55.9 ; Hypercholesteremia E78.00 ; Essential hypertension I10 and Encounter for immunization Z23 Assessments Encounter Date Diagnosis (ICD Code) Assessment Notes Treatment Notes Treatment Clinical Notes Section Notes 03/25/2024 Blood tests for routine general physical examination (ICD-10 - Z00.00) 03/25/2024 Prediabetes (ICD-10 - R73.03) 03/25/2024 Vitamin D deficiency (ICD-10 - E55.9) 03/25/2024 Hypercholesteremia (ICD-10 - E78.00) 03/25/2024 Essential hypertensi on (ICD-10 - I10) 03/25/2024 Encounter for immunization (ICD-10 - Z23) Plan Of Treatment Next Appt Details Provider Name:Juan Ortez ier, 04/07/2025 01:00:00 PM, [address], [address], [place], [place], [id number], Progress Notes * Cara OLSON FraciscoDOB:1940 (84 yo F)Acc No.[id number]:03/25/2024 Progress Note Patient: Cara CASTRO Provider: Syed Quarles MD :1940 A ge:83 Y S ex:Female Date:03/25/2024 Address:[address] [place], [place] [id number] Subjective: * Chief Complaints: * 1 . FASTING LABS. * Medical History: Objective: * Vitals: Assessment: * Assessment: 1. B lood tests for routine general physical examination - Z00.00 (Primary) 2 .?Prediabetes - R73.03 3 . V itamin D deficiency - E55.9 4 .?Hypercholesteremia - E78.00 5 . E ssential hypertension - I10 6. E ncounter for immunization - Z23 Plan: * Treatment: 2. P rediabetes L AB: Complete Blood Count Auto Diff (Collection Date & Time - 03/25/2024 08:00 AM) L AB: Comprehensive [place]. Panel Fast (Collection Date & Time - 03/25/2024 08:00 AM) L AB: Lipid Panel (Collection Date & Time - 03/25/2024 08:00 AM) L AB: Vitamin D 25-OH Total (Collection Date & Time - 03/25/2024 08:00 AM) L AB: Microalbumin, Random (Collection Date & Time - 03/25/2024 08:00 AM) L AB: Hemoglobin A1c (Collection Date & Time - 03/25/2024 08:00 AM) L AB: UA ClnCatch+Micro w/rflx Cult (Collection Date & Time - 03/25/2024 08:00 AM) 3. V itamin D deficiency L AB: Complete Blood Count Auto Diff (Collection Date & Time - 03/25/2024 08:00 AM) L AB: Comprehensive [place]. Panel Fast (Collection Date & Time - 03/25/2024 08:00 AM) L AB: Lipid Panel (Collection Date & Time - 03/25/2024 08:00 AM) L AB: Vitamin D 25-OH Total (Collection Date & Time - 03/25/2024 08:00 AM) L AB: Microalbumin, Random (Collection Date & Time - 03/25/2024 08:00 AM) L AB: Hemoglobin A1c (Collection Date & Time - 03/25/2024 08:00 AM) L AB: UA ClnCatch+Micro w/rflx Cult (Collection Date & Time - 03/25/2024 08:00 AM) 4. H ypercholesteremia L AB: Complete Blood Count Auto Diff (Collection Date & Time - 03/25/2024 08:00 AM) L AB: Comprehensive [place]. Panel Fast (Collection Date & Time - 03/25/2024 08:00 AM) L AB: Lipid Panel (Collection Date & Time - 03/25/2024 08:00 AM) L AB: Vitamin D 25-OH Total (Collection Date & Time - 03/25/2024 08:00 AM) L AB: Microalbumin, Random (Collection Date & Time - 03/25/2024 08:00 AM) L AB: Hemoglobin A1c (Collection Date & Time - 03/25/2024 08:00 AM) L AB: UA ClnCatch+Micro w/rflx Cult (Collection Date & Time - 03/25/2024 08:00 AM) 5. E ssential hypertension L AB: Complete Blood Count Auto Diff (Collection Date & Time - 03/25/2024 08:00 AM) L AB: Comprehensive [place]. Panel Fast (Collection Date & Time - 03/25/2024 08:00 AM) L AB: Lipid Panel (Collection Date & Time - 03/25/2024 08:00 AM) L AB: Vitamin D 25-OH Total (Collection Date & Time - 03/25/2024 08:00 AM) L AB: Microalbumin, Random (Collection Date & Time - 03/25/2024 08:00 AM) L AB: Hemoglobin A1c (Collection Date & Time - 03/25/2024 08:00 AM) L AB: UA ClnCatch+Micro w/rflx Cult (Collection Date & Time - 03/25/2024 08:00 AM) * Immunizations: Influenza High Dose : 0.5 mL (Dose No:1) (Route: Intramuscular) given by Zoe Boyd , Office Staff on Left Deltoid * Procedure Codes: 3 6415 VENIPUNCT, ROUTINE*, 58775 FLU VACC PRSV FREE INC ANTIG, G0008 ADMN FLU VAC NO FEE SCHED SAME DAY * * The named appointment provid er may or may not be the originator of this progress note, and it is not deemed complete until electronically signed by the appointment provider. Sign off status: Pending * Provider: Syed Quarles MD Date: 05/25/2023 Generated for Rocky cunningham/Angella/Jeseitting on: 06/02/2024 02:23 PM EST
--- OUTSIDE RECORDS SUMMARY | 2024-04-01 09:30 | XMS_ITS ---
Author Organization Juan Quarles MD Address [address] [place], [place] [phone] Care Team Providers Care Manager Entry Name Role Phone Juan Quarles Primary Care Provider Allergies Allergen (clinical drug ingredient) Drug/Non Drug Allergy documented on EMR Reaction Allergy Type Onset Date Status naproxen Naprosyn hives Drug Allergy Active Results Component Value Reference Range Notes Occult Blood, Stool, Guaiac Reviewed date:04/01/2024 02:37:57 PM Interpretation:Negative Performing Lab: Notes/Report: Negative Occult Blood, Stool, Guaiac Neg REASON FOR VISIT ANNUAL EXAM Medications Medication SIG (Take, Route, Frequency, Duration) Notes Start Date End Date Status Betamethasone Dipropionate 0.05 % 1 application to affected area Externally Once a day for 30 days 09/05/2016 Not-Taking Lisinopril 2.5 MG Take 1 tablet by hayden th once daily Active Clobetasol Propionate 0.05 % 1 application to affected area Externally Twice a day for 30 days 04/01/2015 Not-Taking Atorvastatin Calcium 40 MG Take 1 tablet by mouth once daily Active Halobetasol Propionate 0.05 % 1 application to affected area Externally Once a day for 30 days 03/03/2014 Not-Taking Aspir-Low 81 MG 1 tablet Orally Once a day for 30 day(s) Active Alendronate Sodium 70 MG 1 tablet 30 min utes before the first food, beverage or medicine of the day with plain water Orally weekly for 30 day(s) 03/25/2021 Not-Taking Vitamin D-[address] 25 MCG (1000 UT) 1 tablet Orally Once a day for 30 day(s) 03/25/2021 Not-Taking Halobetasol Propionate 0.05 % 1 application Externally Once a day 08/29/2022 Active Social History Tobacco Use: Social History Observation Description Date Details (start date - stop date) Never Smoker NA - NA Tobacco Use/Smoking Question Answer Notes Patient is a nonsmoker Additional Findings: Tobacco Non-User Cu rrent non-smoker, currently using no form of tobacco Alcohol Screen Question Answer Notes Did you have a drink containing alcohol in the p ast year? No Points 0 Interpretation Negative Vital Signs Blood pressure systolic 142 mm Hg 04/01/20 24 Blood pressure diastolic 70 mm Hg 024 Height 60 in 04/01/2024 Weight 133 lbs 04/01/2024 BMI 25.97 kg/m2 04/01/2024 weight is down 3 pounds [facility] 09-28-23 Encounters Encounter Location Date Provider Diagnosis Juan Quarles MD [address] [place] [address] [address] [place], [place] [phone] 04/01/2024 Juan Quarles Generalized arthriti s M19.90 ; Annual physical exam Z00.00 ; Other psoriasis L40.8 ; Essential hypertension I10 ; Prediabetes R73.03 ; Hypercholesteremia E78.00 ; Colon cancer screening Z12.11 and Depression screening Z13.31 Assessments Encounter Date Diagnosis (ICD Code) Assessment Notes Treatment Notes Treatment Clinical Notes Section Notes 04/01/2024 Generalized arthriti s (ICD-10 - M19.90) no complaints 04/01/2024 Annual physical exam (ICD-10 - Z00.00) labs reviewed and discussed with patient 04/01/2024 Other psoriasis (ICD-10 - L40.8) not using her creams 04/01/2024 Essential hypertensi on (ICD-10 - I10) running a little high today. will recheck in 6 months, will continue current regiment 04/01/2024 Prediabetes (ICD-10 - R73.03) stable, no need for medication at this time 04/01/2024 Hypercholesteremia (ICD-10 - E78.00) stable, will continue curret regiment at this time 04/01/2024 Colon cancer screeni ng (ICD-10 - Z12.11) guaiac negative 04/01/2024 Depression screening (ICD-10 - Z13.31) negative screen 04/01/2024 Other needs to restart vit d. she has some at home Plan Of Treatment Medication Medication Name Sig Start Date Stop Date Notes Lisinopril 2.5 MG Take 1 tablet by hayden th once daily Atorvastatin Calcium 40 MG Take 1 tablet by mouth once daily Treatment Notes Assessment Notes Generalized arthritis no complaints Annual physical exam labs reviewed and d iscussed with patient Other psoriasis not using her creams Essential hypertension running a little high today. will recheck in 6 months, will continue current regiment Prediabetes stable, no need for medication at this time Hypercholesteremia stable, will continu e curret regiment at this time Colon cancer screening guaiac negative Depression screening negative screen Other needs to restart vit d. she has some at home Next Appt Details Follow Up: 6 Months, Reason: Provider Name:Juan Ortez ier, 04/07/2025 01:00:00 PM, [address] [place] [address], [address], [phone], Progress Notes * Cara OLSONDOB:1940 (83 yo F)Acc No.[id number]:04/01/2024 Progress Notes Patient: Cara Perez Fracisco Provider: Syed Quarles MD :1940 A ge:83 Y S ex:Female Date:04/01/2024 Address:[address] [place], [place] [id number] Subjective: * Chief Complaints: * A NNUAL EXAM * HPI: D epression Screening: PHQ-9 L ittle interest or pleasure in doing things N ot at all, F eeling down, depressed, or hopeless N ot at all, T rouble falling or staying asleep, or sleeping too much N ot at all, F eeling tired or having little energy N ot at all, P oor appetite or overeating N ot at all, F eeling bad about yourself or that you are a failure, or have let yourself or your family down N ot at all, T rouble concentrating on things, such as reading the newspaper or watching television N ot at all, M oving or speaking so slowly that other people could have noticed; or the opposite, being so fidgety or restless that you have been moving around a lot more than usual N ot at all, T houghts that you would be better off or of hurting yourself in some way N ot at all, T otal Score 0 . C ommunication Needs: Communication Needs D oes the patient have a hearing impairment N o, D oes the patient have a vision impairment? Y es, I f yes, what is the vision impairment? G lasses, D oes the patient have a cognition impairment? Y es. F all Risk: History H ave you had any falls with injury in the past year? N o, H ave you had two or more falls in the past year? N o. S AMADOR Questions: SDOH Questions I n the past year have you been worried about losing housing? N o, I n the past year have you or any family members you live with been unable to get any of the following when it was really needed? Check all that apply: N one. S ymptom(s): patient is a 83 yo female here for annual visit with review of recent labs and followu[ of chronic issues. * ROS: G eneral/Constitutional: Patient denies f atigue , headache. C hange in appetite?denies. C hills d enies. F ever d enies. O phthalmologic: Blurred vision d enies. D ischarge d enies. P ain d enies. E NT: Patient denies d ecreased sense of smell , any loss of taste , sore throat. D ecreased hearing d enies. S ore throat d enies. S wollen glands d enies. E ndocrine: Cold intolerance d enies. E xcessive thirst d enies. H eat intolerance d enies. W eight loss d enies. R espiratory: Cough d enies. S hortness of breath at rest d enies. S hortness of breath with exertion d enies. W heezing d enies. C ardiovascular: Chest pain at rest d enies. C hest pain with exertion?denies. I rregular heartbeat d enies. S hortness of breath d enies. ? G astrointestinal: Abdominal pain d enies. C hange in bowel habits d enies. D iarrhea d enies. N ausea d enies. R ectal bleeding d enies. V omiting d enies . G enitourinary: Blood in urine d enies. D ifficulty urinating d enies. F requent urination d enies. U rinary incontinence D enies. M usculoskeletal: Patient denies m uscle aches. P ainful joints d enies. W eakness d enies. P eripheral Vascular: Patient denies r ed and blue toes. S kin: Dry skin d enies. I tching d enies. D enies?Mole(s), changes in moles, new moles or any lesions of concern. D enies P hotosensitivity. R mayur d enies. N eurologic: Dizziness d enies. F ainting d enies. H eadache?denies. * Medical History: * Surgical History: * Hospitalization/Major Diagno stic Procedure: * Family History: F ather: 73 yrs. M other: 89 yrs. 1 brother(s) , 2 sister(s) . 2 son(s) , 1 daughter(s) . . 1 deceasd brother Father Mother Cardiac, Denies mental health/substance abuse family history, Denies mental health/substance abuse family history. * Social History: T obacco Use: T obacco Use/Smoking P atient is a n onsmoker, A dditional Findings: Tobacco Non-User C urrent non-smoker, currently using no form of tobacco. D rugs/Alcohol: A lcohol Screen D id you have a drink containing alcohol in the past year? N o, P oints 0 , I nterpretation N egative. M iscellaneous: C affeine: yes, frequency:, 1-2 cups per day. Children: yes. Home smoke detector use: yes. Housing: owning. Living with: spouse. Marital status: . Occupation: retired. Pets: none. no Travel outside of the [place]. * Medications: T akingAspir-Low 81 MG Tablet Delayed Release 1 tablet Orally Once a dayHalobetasol Propionate 0.05 % Cream 1 application Externally Once a dayLisinopril 2.5 MG Tablet Take 1 tablet by mouth once daily Atorvastatin Calcium 40 MG Tablet Take 1 tablet by mouth once daily Taking Aspir-Low 81 MG Tablet Delayed Release 1 tablet Orally Once a dayTaking Halobetasol Propionate 0.05 % Cream 1 application Externally Once a dayTaking Lisinopril 2.5 MG Tablet Take 1 tablet by mouth once daily Taking Atorvastatin Calcium 40 MG Tablet Take 1 tablet by mouth once daily Not-Taking/PRNVitamin D-[address] 25 MCG (1000 UT) Tablet 1 tablet Orally Once a dayAlendronate Sodium 70 MG Tablet 1 tablet 30 minutes before the first food, beverage or medicine of the day with plain water Orally weeklyHalobetasol Propionate 0.05 % Cream 1 application to affected area Externally Once a dayClobetasol Propionate 0.05 % Cream 1 application to affected area Externally Twice a dayBetamethasone Dipropionate 0.05 % Cream 1 application to affected area Externally Once a dayMedication List reviewed and reconciled with the patientNot-Taking/PRN Vitamin D-[address] 25 MCG (1000 UT) Tablet 1 tablet Orally Once a dayNot-Taking/PRN Alendronate Sodium 70 MG Tablet 1 tablet 30 minutes before the first food, beverage or medicine of the day with plain water Orally weeklyNot-Taking/PRN Halobetasol Propionate 0.05 % Cream 1 application to affected area Externally Once a dayNot-Taking/PRN Clobetasol Propionate 0.05 % Cream 1 application to affected area Externally Twice a dayNot-Taking/PRN Betamethasone Dipropionate 0.05 % Cream 1 application to affected area Externally Once a dayMedication List reviewed and reconciled with the patient * Allergies: N aprosyn: hivesyes[Allergies Verified] Objective: * Vitals: H t: 60, Wt:133, BMI:25.97, BP:142/70 weight is down 3 pounds since 09-28-23. * P ast Orders: L ab:Comprehensive [facility]. Panel Fast (Order Date - 03/25/2024) (Collection Date - 03/25/2024) Value Reference Range Sodium 139 135-145 - mmol/L Bilirubin Total 0.8 0.0-1.0 - mg/dL Aspartate Amino Transferase 26 5-31 - U/L Alanine Aminotransferase 10 0-31 - U/L Total Protein 7.0 6.5-8.0 - g/dL Albumin Level 4.1 3.5-5.0 - g/dL Alkaline Phosphatase 103 39-117 - U/L Potassium 4.1 3.3-5.1 - mmol/L Chloride 104 96-108 - mmol/L Carbon Dioxide 26 22-29 - mmol/L Anion Gap 13 12-20 - Blood Urea Nitrogen 23 H 9-16 - mg/dL Creatinine 0.82 0.5-1.4 - mg/dL Estimated Glomerular Filt Rate > 60 - Glucose Fasting 89 60-99 - mg/dL Calcium 9.6 8.4-10.2 - mg/dL L ab:Lipid Panel (Order Date - 03/25/2024) (Collection Date - 03/25/2024) Value Reference Range Triglycerides 84 <150 - mg/dL Cholesterol 151 <200 - mg/dL LDL Cholesterol Calculated 83 <100 - mg/dL HDL Cholesterol 52 >40 - mg/dL L ab:Urine Culture (Order Date - 03/25/2024) (Collection Date - 03/25/2024) Value Reference Range Urine Culture urogenital contamination. - L ab:Vitamin D 25-OH Total (Order Date - 03/25/2024) (Collection Date - 03/25/2024) Value Reference Range Vitamin D 25-OH Total 22.6 L >30 - ng/mL L ab:Microalbumin, Random (Order Date - 03/25/2024) (Collection Date - 03/25/2024) Value Reference Range Creatinine Urine 189.46 - mg/dL Microalbumin Urine 19.0 - mg/L Microalbum Creatinine Ratio Ur 10.0 <30 - ug/ mg cr L ab:Hemoglobin A1c (Order Date - 03/25/2024) (Collection Date - 03/25/2024) Value Reference Range Hemoglobin A1c % 5.5 <6.0 - % Estimated Average Glucose 111 - mg/dL L ab:Complete Blood Count Auto Diff (Order Date - 03/25/2024) (Collection Date - 03/25/2024) Value Reference Range White Blood Count 6.0 4.8-10.8 - X10*3/uL Red Blood Count 4.03 L 4.20-5.50 - X10*6/uL Hemoglobin 11.3 L 12.0-16.0 - g/dl Hematocrit 37.1 37.0-47.0 - % Mean Corpuscular Volume 92.1 80.0-98.0 - fL Mean Corpuscular Hemoglobin 28.0 27.0-33.0 - pg Mean Corpuscular HGB Conc 30.5 L 31.0-35.0 - g/ dl Red Cell Distribution Width 13.5 11.0-16.0 - % Platelet Count 283 160-400 - X10*3/uL Mean Platelet Volume 11.2 9.4-12.3 - fL Neutrophils Percent Auto 60.6 45-73 - % Imm Gran Pct Auto 0.3 0.0-0.4 - % Lymphocytes Percent Auto 24.5 20-40 - % Monocytes Percent Auto 8.8 2-11 - % Eosinophils Percent Auto 5.3 H 0-4 - % Basophils Percent Auto 0.5 0-2 - % NRBC Pct Auto 0.0 0.0-0.2 - /100WBC Neutrophils Absolute Auto 3.7 2.0-8.3 - x10* 3/uL Imm Gran Abs Auto 0.02 0.00-0.03 - X10*3/uL Lymphocytes Absolute Auto 1.5 1.2-4.9 - X10* 3/uL Monocytes Absolute Auto 0.5 0.1-1.2 - X10*3/ uL Eosinophils Absolute Auto 0.3 0.0-0.4 - X10* 3/uL Basophils Absolute Auto 0.0 0.0-0.2 - X10*3/ uL NRBC Abs Auto 0.000 0.0-0.012 - X10*3/uL L ab:UA ClnCatch+Micro w/rflx Cult (Order Date - 03/25/2024) (Collection Date - 03/25/2024) Value Reference Range Color Urine Yellow - Appearance Urine Clear - PH 5.5 5.0-9.0 - Glucose Urine UA Negative Negative - mg/dL Urine Blood Negative Negative - Specific [place] - Urine >= 1.030 H 1.005-1.025 - Urine Protein Negative Neg-Trace - mg/dL Urine Ketones Negative Negative - mg/dL Nitrite Urine Negative Negative - Leukocyte Esterase Urine Moderate (2+) A Negative - RBC Urine 0-2 0-2 - /HPF WBC Urine 6-10 A 0-5 - /HPF Squamous Epithelial Cell Urine 3-5 0-2 - /HP F Bacteria Urine Trace None Seen - Hyaline Casts Urine 0-2 0-2 - /LPF * Examination: G eneral Examination: GENERAL APPEARANCE: w ell developed, well nourished, in no acute distress. HEAD: n ormocephalic, atraumatic. EYES: p upils equal, round, reactive to light and accommodation, sclera non-icteric. EARS: n ormal. ORAL CAVITY: m ucosa moist. THROAT: c lear. NECK/THYROID: n sunitha supple, full range of motion, no cervical lymphadenopathy, no bruits. SKIN: w arm and dry, no suspicious lesions , abnormal with generalized psoriasis. HEART: r egular rate and rhythm, S1, S2 normal, no murmurs.? LUNGS: c lear to auscultation bilaterally. BREASTS: N o mass, no lump. ABDOMEN: s oft, nontender, nondistended, bowel sounds present, normal, no organomegaly , no masses palpable. RECTAL EXAM: s tool guaiac negative , no masses palpable.? FEMALE GENITOURINARY: n ot done. EXTREMITIES: n o clubbing, cyanosis, or edema. NEUROLOGIC: n onfocal, motor strength normal upper and lower extremities, sensory exam intact. Assessment: * Assessment: 1. A nnual physical exam - Z00.00 (Primary) 2 . G eneralized arthritis - M19.90 3 .?Other psoriasis - L40.8 4 . E ssential hypertension - I10 5 . P rediabetes - R73.03 6 . H ypercholesteremia - E78.00 7 . C olon cancer screening - Z12.11 8 . Depression screening - Z13.31 Plan: * Treatment: 2. G eneralized arthritis Notes: no complaints 3. O ther psoriasis Notes: not using her creams 4. E ssential hypertension Continue Lisinopril Tablet, 2.5 MG, Take 1 tablet by mouth once daily. Notes: running a little high today. will recheck in 6 months, will continue current regiment ? 5. P rediabetes Notes: stable, no need for medication at this time 6. H ypercholesteremia Continue Atorvastatin Calcium Tablet, 40 MG, Take 1 tablet by mouth once daily. Notes: stable, will continue curret regiment at this time 7. C olon cancer screening L AB: Occult Blood, Stool, Guaiac N egative Value Reference Range O ccult Blood, Stool, Guaiac Neg Notes: guaiac negative??8.?Depression screening? Notes: negative screen??9.?Others? Notes: needs to restart vit d. she has some at home?? * Procedure Codes: 8 2270 TEST FOR BLOOD, FECES * Follow Up: 6 Months * * Sign off status: Completed true * Provider: Syed Quarles MD Date: 06/01/2023 Generated for Rocky cunningham/Angella/Sussy on: 06/02/2024 02:23 PM EST History and Physical Notes * HPI (History of Present Illness) Category Sub-Category Detail Notes Category Not es Symptom(s) patient is a 83 yo female here for annual visit with review of recent labs and followu[ of chronic issues. Depression Screening PHQ-9 Little inte rest or pleasure in doing things: Not at all Feeling down, depressed, or hopeless: No t at all Trouble falling or staying asleep, or sl eeping too much: Not at all Feeling tired or having little energy: N ot at all Poor appetite or overeating: Not at all Feeling bad about yourself o r that you are a failure, or have let yourself or your family down: Not at all Trouble concentrating on thi ngs, such as reading the newspaper or watching television: Not at all Moving or speaking so slowly that other people could have noticed; or the opposite, being so fidgety or restless that you have been moving around a lot more than usual: Not at all Thoughts that you would be b elizabeth off or of hurting yourself in some way: Not at all Total Score: 0 SDOH Questions SDOH Questions In the past year have you been worried about losing housing?: No In the past year have you or any family members you live with been unable to get any of the following when it was really needed? Check all that apply:: None Fall Risk History Have you had any falls with injury i n the past year?: No Have you had two or more falls in the pa st year?: No Communication Needs Communication Needs Does the patient have a hearing impairment: No Does the patient have a vision impairmen t?: Yes If yes, what is the vision impairment?: Glasses Does the patient have a cognition impair ment?: Yes Examination Category Sub-Category Detail Notes Category Not es General Examination GENERAL APPEARANCE: well dev eloped, well nourished, in no acute distress HEAD: normocephalic, atrau matic EYES: pupils equal, round, reactive to light and accommodation, sclera non-icteric EARS: normal THROAT: clear NECK/THYROID: neck supple, full ra nge of motion, no cervical lymphadenopathy, no bruits HEART: regular rate and rhy thm, S1, S2 normal, no murmurs LUNGS: clear to auscultatio n bilaterally ABDOMEN: soft, nontender, non distended, bowel sounds present, normal, no organomegaly , no masses palpable NEUROLOGIC: nonfocal, motor stre ngth normal upper and lower extremities, sensory exam intact SKIN: warm and dry, no josefina picious lesions , abnormal with generalized psoriasis EXTREMITIES: no clubbing, cyanosi s, or edema BREASTS: No mass, no lump RECTAL EXAM: stool guaiac negativ e , no masses palpable FEMALE GENITOURINARY: not done ORAL CAVITY: mucosa moist
--- OUTSIDE RECORDS SUMMARY | 2024-09-23 02:30 | XMS_ITS ---
Author Organization Juan Quarles MD Address [address] [place], [place] [id number] Care Team Providers Care Air Route Traffic Controller Name Role Phone Juan Quarles Primary Care Provider [phone] Results Component Value Reference Range Notes Liver Panel Reviewed date:09/23/2024 04:55:24 PM Interpretation: Performing Lab:[address] [id number] Notes/Report: Bilirubin Total 0.6 0.0-1.0 mg/dL Bilirubin Direct 0.2 0.0-0.5 mg/dL Aspartate Amino Transferase 25 5-31 U/L Alanine Aminotransferase 13 0-31 U/L Total Protein 6.9 6.5-8.0 g/dL Albumin Level 4.1 3.5-5.0 g/dL Alkaline Phosphatase 102 39-117 U/L Glucose Fasting Reviewed date:09/23/2024 04:51:08 PM Interpretation: Performing Lab:[facility], [address] [place] [id number] Notes/Report: Glucose Fasting 96 60-99 mg/dL Lipid Panel with Reflex Reviewed date:09/23/2024 04:54:51 PM Interpretation: Performing Lab:[address] [id number] Notes/Report: Triglycerides 94 <150 mg/dL Desirable Triglyceride: less than 150 mg/dL Borderline High Triglyceride 150-199 mg/dL High Triglyceride: 200-499 mg/dL Very High Triglyceride: greater than or equal to 5OO mg/dL Cholesterol 163 <200 mg/dL Desirable Cholesterol: less than 200 mg/dL Borderline High Cholesterol: 200-239 mg/dL High Cholesterol: greater than 239 mg/dL LDL Cholesterol Calculated 89 <100 mg/dL Desirable LDL: less than 100 mg/dL Near Optimal/Above Optimal LDL: 110-129 mg/dL Borderline High LDL: 130-159 mg/dL High LDL: 160-189 mg/dL Very High LDL: greater than or equal to 190 mg/dL HDL Cholesterol 56 >40 mg/dL Desirable HDL: greater than 40 mg/dL Note: This HDL assay may give artificially low results in patients with liver disease. Hemoglobin A1c Reviewed date:09/23/2024 12:05:10 PM Interpretation: Performing Lab:[facility], [address] [place] [id number] Notes/Report: Hemoglobin A1c % 5.5 <6.0 % [...] average glucose, using the formula of the [id number] Average Glucose study (ADAG), Diabetes Care, Vol.31,#8, Dec. 2007 REASON FOR VISIT fasting lipids Encounters Encounter Location Date Provider Diagnosis Juan Quarles MD [address] [place] [phone] 09/23/2024 Juan Quarles Prediabetes R73.03 a nd Hypercholesteremia E78.00 Assessments Encounter Date Diagnosis (ICD Code) Assessment Notes Treatment Notes Treatment Clinical Notes Section Notes 09/23/2024 Prediabetes (ICD-10 - R73.03) 09/23/2024 Hypercholesteremia (ICD-10 - E78.00) Plan Of Treatment Next Appt Details Provider Name:Juan conner, 04/07/2025 01:00:00 PM, [address], [address], [place], [place], [phone], Progress Notes * Cara OLSONB:1940 (84 yo F)Acc No.[id number]:09/23/2024 Progress Note Patient: Cara CASTRO Provider: Syed Quarles MD :1940 A ge:84 Y S ex:Female Date:09/23/2024 Address[place] [id number] Subjective: * Chief Complaints: * 1 . Fasting lipids. * Medical History: Objective: * Vitals: Assessment: * Assessment: 1. P rediabetes - R73.03 (Primary) 2 . H ypercholesteremia - E78.00 ? Plan: * Treatment: 2. H ypercholesteremia L AB: Liver Panel (Collection Date & Time - 09/23/2024 07:30 AM) L AB: Glucose Fasting (Collection Date & Time - 09/23/2024 07:30 AM) L AB: Lipid Panel with Reflex (Collection Date & Time - 09/23/2024 07:30 AM) L AB: Hemoglobin A1c (Collection Date & Time - 09/23/2024 07:30 AM) * Procedure Codes: 3 6415 VENIPUNCT, ROUTINE* * * The named appointment provid er may or may not be the originator of this progress note, and it is not deemed complete until electronically signed by the appointment provider. Sign off status: Pending * Provider: Syed Quarles MD Date: 09/23/2024 Generated for Rocky cunningham/Angella/Jeseitting on: 06/02/2024 02:22 PM EST
--- OUTSIDE RECORDS SUMMARY | 2024-09-30 09:00 | XMS_ITS ---
Author Organization Juan Quarles MD Address [address] [place], [place] [id number] Care Team Providers Care Bottom Liner Name Role Phone Juan Quarles Primary Care Provider [phone] Allergies Allergen (clinical drug ingredient) Drug/Non Drug Allergy documented on EMR Reaction Allergy Type Onset Date Status naproxen Naprosyn hives Drug Allergy Active REASON FOR VISIT 6 month Medications Medication SIG (Take, Route, Frequency, Duration) Notes Start Date End Date Status Halobetasol Propionate 0.05 % 1 application to affected area Externally Once a day for 30 days 03/03/2014 Not-Taking Clobetasol Propionate 0.05 % 1 application to affected area Externally Twice a day for 30 days 04/01/2015 Not-Taking Vitamin D-[address] 25 MCG (1000 UT) 1 tablet Orally Once a day for 30 day(s) 03/25/2021 Not-Taking Alendronate Sodium 70 MG 1 tablet 30 min utes before the first food, beverage or medicine of the day with plain water Orally weekly for 30 day(s) 03/25/2021 Not-Taking Betamethasone Dipropionate 0.05 % 1 application to affected area Externally Once a day for 30 days 09/05/2016 Not-Taking Lisinopril 2.5 MG Take 1 tablet by hayden th once daily Active Atorvastatin Calcium 40 MG Take 1 tablet by mouth once daily Active Halobetasol Propionate 0.05 % 1 application Externally Once a day 08/29/2022 Not-Taking Aspir-Low 81 MG 1 tablet Orally Once a day for 30 day(s) Active Vital Signs Blood pressure systolic 142 mm Hg 10/01/19 25 Blood pressure diastolic 66 mm Hg 025 Height 60 in 09/30/2024 Weight 136 lbs 09/30/2024 BMI 26.56 kg/m2 09/30/2024 weight is up 3 pounds since 04-01-24 Encounters Encounter Location Date Provider Diagnosis Juan Quarles MD [address] [place], [place] [id number] 09/30/2024 Juan Quarles Prediabetes R73.03 and Vaginal bleeding N93.9 Assessments Encounter Date Diagnosis (ICD Code) Assessment Notes Treatment Notes Treatment Clinical Notes Section Notes 09/30/2024 Prediabetes (ICD-10 - R73.03) stable, no need for medication at this time 09/30/2024 Vaginal bleeding (ICD-10 - N93.9) referral to dr wliliam at [facility]/ need notes from [facility] this year. daughter will get her appt with broadcast producer Plan Of Treatment Treatment Notes Assessment Notes Prediabetes stable, no need for medication at this time Vaginal bleeding referral to dr lukasz lee at [facility]/ need notes from [facility] this year. daughter will get her appt with broadcast producer Next Appt Details Follow Up: 4 Weeks, Reason: Provider Name:Juan Ortez ier, 04/07/2025 01:00:00 PM, [address], [address], [place], [place], [id number], Progress Notes * SURESHNIKOLAS Cara YapDOB:1940 (84 yo F)Acc No.[id number]:09/30/2024 Progress Notes Patient: Cara CASTRO Provider: Syed Quarles MD :1940 A ge:84 Y S ex:Female Date:09/30/2024 Address: [address] [id number] Subjective: * Chief Complaints: * 6 month * HPI: S ymptom(s): patient is a 84 yo female here for 6 month follow up visit. * ROS: G eneral/Constitutional: Denies C hills. D enies F atigue. D enies F ever. D enies H eadache. E NT: Denies S ore throat. E ndocrine: Denies D ifficulty sleeping. D enies D izziness.?Denies E xcessive sweating. D enies E xcessive thirst. D enies F requent urination. R espiratory: Denies C ough. D enies S hortness of breath at rest. D enies S hortness of breath with exertion. G astrointestinal: Denies D iarrhea. D enies N ausea. * Medical History: * Surgical History: * Hospitalization/Major Diagno stic Procedure: * Medications: T akingAspir-Low 81 MG Tablet Delayed Release 1 tablet Orally Once a day Lisinopril 2.5 MG Tablet Take 1 tablet by mouth once daily Atorvastatin Calcium 40 MG Tablet Take 1 tablet by mouth once daily Taking Aspir-Low 81 MG Tablet Delayed Release 1 tablet Orally Once a day Taking Lisinopril 2.5 MG Tablet Take 1 tablet by mouth once daily Taking Atorvastatin Calcium 40 MG Tablet Take 1 tablet by mouth once daily Not-Taking/PRNHalobetasol Propionate 0.05 % Cream 1 application Externally Once a day Vitamin D-[address] 25 MCG (1000 UT) Tablet 1 tablet Orally Once a day Alendronate Sodium 70 MG Tablet 1 tablet 30 minutes before the first food, beverage or medicine of the day with plain water Orally weekly Halobetasol Propionate 0.05 % Cream 1 application to affected area Externally Once a day Clobetasol Propionate 0.05 % Cream 1 application to affected area Externally Twice a day Betamethasone Dipropionate 0.05 % Cream 1 application to affected area Externally Once a day Medication List reviewed and reconciled with the patientNot-Taking/PRN Halobetasol Propionate 0.05 % Cream 1 application Externally Once a day Not-Taking/PRN Vitamin D-[address] 25 MCG (1000 UT) Tablet 1 tablet Orally Once a day Not-Taking/PRN Alendronate Sodium 70 MG Tablet 1 tablet 30 minutes before the first food, beverage or medicine of the day with plain water Orally weekly Not-Taking/PRN Halobetasol Propionate 0.05 % Cream 1 application to affected area Externally Once a day Not-Taking/PRN Clobetasol Propionate 0.05 % Cream 1 application to affected area Externally Twice a day Not-Taking/PRN Betamethasone Dipropionate 0.05 % Cream 1 application to affected area Externally Once a day Medication List reviewed and reconciled with the patient * Allergies: N aprosyn: hivesyes[Allergies Verified] Objective: * Vitals: H t: 60, Wt: 136, BMI:26.56, BP:142/66, Repeat BP:120/80, Wt-k.69. weight is up 3 pounds since 04-01-24. * P ast Orders: L ab:Hemoglobin A1c (Order Date - 09/23/2024) (Collection Date & Time - 09/23/2024 07:30 AM) Value Reference Range Hemoglobin A1c % 5.5 <6.0 - % Estimated Average Glucose 111 - mg/dL L ab:Lipid Panel with Reflex (Order Date - 09/23/2024) (Collection Date & Time - 09/23/2024 07:30 AM) Value Reference Range Triglycerides 94 <150 - mg/dL Cholesterol 163 <200 - mg/dL LDL Cholesterol Calculated 89 <100 - mg/dL HDL Cholesterol 56 >40 - mg/dL L ab:Glucose Fasting (Order Date - 09/23/2024) (Collection Date & Time - 09/23/2024 07:30 AM) Value Reference Range Glucose Fasting 96 60-99 - mg/dL L ab:Liver Panel (Order Date - 09/23/2024) (Collection Date & Time - 09/23/2024 07:30 AM) Value Reference Range Bilirubin Total 0.6 0.0-1.0 - mg/dL Bilirubin Direct 0.2 0.0-0.5 - mg/dL Aspartate Amino Transferase 25 5-31 - U/L Alanine Aminotransferase 13 0-31 - U/L Total Protein 6.9 6.5-8.0 - g/dL Albumin Level 4.1 3.5-5.0 - g/dL Alkaline Phosphatase 102 39-117 - U/L L ab:Hold Gold (Order Date - 09/23/2024) (Collection Date & Time - 09/23/2024 07:30 AM) Value Reference Range Hold Gold See Note - * Examination: G eneral Examination: GENERAL APPEARANCE: a lert, well hydrated, in no distress.? HEAD: n ormocephalic. SKIN: g ood turgor. HEART: r egular rate and rhythm. LUNGS: n o wheezes, rales, rhonchi, good air movement, clear to auscultation bilaterally. Assessment: * Assessment: 1. P rediabetes - R73.03 (Primary) 2 . V aginal bleeding - N93.9 Plan: * Treatment: 2. V aginal bleeding Notes: referral to dr william at [facility]/ need notes from [facility] this year. daughter will get her appt with broadcast producer * Procedure Codes: * Follow Up: 4 Weeks * * Sign off status: Completed true * Provider: Syed Quarles MD Date: 0 09/30/2024 Generated for Rocky cunningham/Angella/eTransmitting on: 06/02/2024 02:23 PM EST History and Physical Notes * HPI (History of Present Illness) Category Sub-Category Detail Notes Category Not es Symptom(s) patient is a 84 yo female here for 6 month follow up visit Examination Category Sub-Category Detail Notes Category Not es General Examination GENERAL APPEARANCE: alert, w ell hydrated, in no distress HEAD: normocephalic HEART: regular rate and rhy thm LUNGS: no wheezes, rales, r honchi, good air movement, clear to auscultation bilaterally SKIN: good turgor
--- OUTSIDE RECORDS SUMMARY | 2024-09-30 10:07 | XMS_ITS ---
Author Organization Juan Quarles MD Address [address] [place], [place] [phone] Care Team Providers Care Mixing Pan Tender Name Role Phone Juan Quarles Primary Care Provider REASON FOR VISIT FYSravani calling her Daughter Carole Encounters Encounter Location Date Provider Diagnosis Juan Quarles MD [address] [place], [place] [phone] 09/30/2024 Juan Quarles Plan Of Treatment Next Appt Details Provider Name:Juan Ortez ier, 04/07/2025 01:00:00 PM, [address], [address], [place], [place], [phone], Progress Notes * Cara OLSONDOB:1940 (84 yo F)Acc No.[id number]:09/30/2024 Patient: Cara CASTRO :1940 A ge:84 Y S ex:Female Address:[address] [place] [address] [place] [address] * true * Date: Generated for Printi ng/Faronyg/eTransmitting on: 06/02/2024 02:24 PM EST
--- OUTSIDE RECORDS SUMMARY | 2024-10-30 09:00 | XMS_ITS ---
Author Organization Juan Quarles MD Address [address] [place], [place] [phone] Care Team Providers Care Melt Room Operator Name Role Phone Juan Quarles Primary Care Provider Allergies Allergen (clinical drug ingredient) Drug/Non Drug Allergy documented on EMR Reaction Allergy Type Onset Date Status naproxen Naprosyn hives Drug Allergy Active REASON FOR VISIT 4 week, Accompanied by daughter Medications Medication SIG (Take, Route, Frequency, Duration) Notes Start Date End Date Status Halobetasol Propionate 0.05 % 1 application to affected area Externally Once a day for 30 days 03/03/2014 Not-Taking Alendronate Sodium 70 MG 1 tablet 30 min utes before the first food, beverage or medicine of the day with plain water Orally weekly for 30 day(s) 03/25/2021 Not-Taking Lisinopril 2.5 MG Take 1 tablet by hayden th once daily Orally Once a day for 90 days Active Betamethasone Dipropionate 0.05 % 1 application to affected area Externally Once a day for 30 days 09/05/2016 Not-Taking Clobetasol Propionate 0.05 % 1 application to affected area Externally Twice a day for 30 days 04/01/2015 Not-Taking Vitamin D-[address] 25 MCG (1000 UT) 1 tablet Orally Once a day for 30 day(s) 03/25/2021 Not-Taking Halobetasol Propionate 0.05 % 1 application Externally Once a day 08/29/2022 Not-Taking Atorvastatin Calcium 40 MG Take 1 tablet by mouth once daily Active Aspir-Low 81 MG 1 tablet Orally Once a day for 30 day(s) Active Vital Signs Blood pressure systolic 128 mm Hg 10/31/19 25 Blood pressure diastolic 66 mm Hg 025 Height 60 in 10/30/2024 Weight 135 lbs 10/30/2024 BMI 26.36 kg/m2 10/30/2024 Encounters Encounter Location Date Provider Diagnosis Juan Quarles MD [address] [place], [place] [phone] 10/30/2024 Juan Quarles Essential hypertension I10 and Vaginal bleeding N93.9 Assessments Encounter Date Diagnosis (ICD Code) Assessment Notes Treatment Notes Treatment Clinical Notes Section Notes 10/30/2024 Essential hypertension (ICD-10 - I10) 10/30/2024 Vaginal bleeding (ICD-10 - N93.9) has resolved and was evaluated at the [facility] Plan Of Treatment Medication Medication Name Sig Start Date Stop Date Notes Lisinopril 2.5 MG Take 1 tablet by hayden th once daily Orally Once a day for 90 days Treatment Notes Assessment Notes Vaginal bleeding has resolved and was evaluated at the [facility] Next Appt Details Follow Up: 6 Months, Reason: Provider Name:Juan Ortez ier, 04/07/2025 01:00:00 PM, [address], [address], [place], [place], [id number], Progress Notes * WESLEYCaraDOB:1940 (84 yo F)Acc No.[id number]:10/30/2024 Progress Notes Patient: Cara CASTRO Provider: Syed Quarles MD :1940 A ge:84 Y S ex:Female Date:10/30/2024 Address:[address] [place], [place] [address], [id number] Subjective: * Chief Complaints: * 4 weekAccompanied by daughter * HPI: S ymptom(s): patient is a 84 yo female here for 4 week follow up visit. had seen [facility] automobile service station mechanic and they thought it was the pessary doing. having dificulty with vision and found to have cataracts and wet md. * ROS: G eneral/Constitutional: Denies C hills. D enies F atigue. D enies F ever. D enies H eadache. E NT: Denies S ore throat. R espiratory: Denies C ough. D enies [...] Objective: * Vitals: H t: 60, Wt: 135, BMI:26.36, BP:128/66, Wt-k.24. * Examination: G eneral Examination: GENERAL APPEARANCE: a lert, well hydrated, in no distress, female. HEAD: n ormocephalic. SKIN: g ood turgor. HEART: r egular rate and rhythm, no murmurs, rubs, gallops.? LUNGS: n o wheezes, rales, rhonchi, good air movement, clear to auscultation bilaterally. Assessment: * Assessment: 1. E ssential hypertension - I10 (Primary) 2 . V aginal bleeding - N93.9? Plan: * Treatment: 2. V aginal bleeding Notes: has resolved and was evaluated at the [facility] * Procedure Codes: * Follow Up: 6 Months * * Sign off status: Completed true * Provider: Syed Quarles MD Date: 0 10/30/2024 Generated for Rocky cunningham/Angella/eTransmitting on: 1 06/02/2024 02:23 PM EST History and Physical Notes * HPI (History of Present Illness) Category Sub-Category Detail Notes Category Not es Symptom(s) patient is a 84 yo female here for 4 week follow up visit. had seen [facility] service station mechanic and they thought it was the pessary doing. having dificulty with vision and found to have cataracts and wet md. Examination Category Sub-Category Detail Notes Category Not es General Examination GENERAL APPEARANCE: alert, w ell hydrated, in no distress, female HEAD: normocephalic HEART: regular rate and rhy thm, no murmurs, rubs, gallops LUNGS: no wheezes, rales, r honchi, good air movement, clear to auscultation bilaterally SKIN: good turgor
--- OUTSIDE RECORDS SUMMARY | 2024-12-30 04:17 | XMS_ITS ---
Author Organization Juan Quarles MD Address [address] [place] [phone] Care Team Providers Care Lab Rep Name Role Phone Juan Quarles Primary Care Provider REASON FOR VISIT ER Encounters Encounter Location Date Provider Diagnosis Juan Quarles MD [address] [place] [phone] 12/30/2024 Juan Quarles Plan Of Treatment Next Appt Details Provider Name:Juan Ortez ier, 04/07/2025 01:00:00 PM, [address], [address], [place], [place], [phone], Progress Notes * Cara OLSONDOB:1940 (84 yo F)Acc No.[id number]:12/30/2024 Patient: Cara CASTRO :1940 A ge:84 Y S ex:Female Address:[address] [place], [place] [address] [place] [address] * true * Date: Generated for Rocky cunningham/Angella/eTransmitting on: 06/02/2024 02:23 PM EST
--- OUTSIDE RECORDS SUMMARY | 2025-04-02 02:00 | XMS_ITS ---
Author Organization Juan Quarles MD Address [address] [place], [place] [id number] Care Team Providers Care Soldering Machine Tender Name Role Phone Juan Quarles Primary Care Provider Results Component Value Reference Range Notes Complete Blood Count Auto Di ff (Not yet reviewed by provider) Interpretation: Performing Lab:[facility], [address] [place] [id number] Notes/Report: White Blood Count 5.4 4.8-10.8 X10*3/uL Red Blood Count 4.04 4.20-5.50 X10*6/uL Hemoglobin 11.4 12.0-16.0 g/dl Hematocrit 36.9 37.0-47.0 % Mean Corpuscular Volume 91.3 80.0-98.0 fL Mean Corpuscular Hemoglobin 28.2 27.0-33.0 pg Mean Corpuscular HGB Conc 30.9 31.0-35.0 g/dl Red Cell Distribution Width 13.2 11.0-16.0 % Platelet Count 294 160-400 X10*3/uL Mean Platelet Volume 10.9 9.4-12.3 fL Neutrophils Percent Auto 53.2 45-73 % Imm Gran Pct Auto 0.4 0.0-0.4 % Lymphocytes Percent Auto 29.2 20-40 % Monocytes Percent Auto 10.7 2-11 % Eosinophils Percent Auto 5.8 0-4 % Basophils Percent Auto 0.7 0-2 % NRBC Pct Auto 0.0 0.0-0.2 /100WBC Neutrophils Absolute Auto 2.9 2.0-8.3 x10*3/u L Imm Gran Abs Auto 0.02 0.00-0.03 X10*3/uL Lymphocytes Absolute Auto 1.6 1.2-4.9 X10*3/u L Monocytes Absolute Auto 0.6 0.1-1.2 X10*3/uL Eosinophils Absolute Auto 0.3 0.0-0.4 X10*3/u L Basophils Absolute Auto 0.0 0.0-0.2 X10*3/uL NRBC Abs Auto 0.000 0.0-0.012 X10*3/uL Microalbumin, Random (Not ye t reviewed by provider) Interpretation: Performing Lab:[address] [id number] Notes/Report: Creatinine Urine 134.50 Microalbumin Urine 8.0 Microalbum/Creatinine Ratio Ur 5.9 <30 ug/mg cr Albumin/Creatinine Ratio Reference Ranges: Normal: < 30 ug/mg creatinine Microalbuminuria: 30 - 300 ug/mg creatinine Clinical Albuminuria: > 300 ug/mg creatinine UA ClnCatch+Micro w/rflx Cul t (Not yet reviewed by provider) Interpretation: Performing Lab:[facility], [address] [place] [phone] Notes/Report: Urine, Clean Catch Color Urine Yellow Appearance Urine Clear PH 6.0 5.0-9.0 Glucose Urine UA Negative Negative mg/dL Urine Blood Negative Negative Specific [place] - Urine 1.025 1.005-1.025 Urine Protein Negative Neg-Trace mg/dL Urine Ketones Negative Negative mg/dL Nitrite Urine Negative Negative Leukocyte Esterase Urine Negative Negative RBC Urine TNP 0-2 /HPF Specimen QNS. < 1 ml of urine received. WBC Urine TNP 0-5 /HPF Squamous Epithelial Cell Urine TNP 0-2 /HPF Bacteria Urine TNP None Seen Hyaline Casts Urine TNP 0-2 /LPF Lipid Panel Reviewed date:04/02/2025 12:47:01 PM Interpretation: Performing Lab:[address] [phone] Notes/Report: Triglycerides 80 <150 mg/dL Desirable Triglyceride: less than 150 mg/dL Borderline High Triglyceride 150-199 mg/dL High Triglyceride: 200-499 mg/dL Very High Triglyceride: greater than or equal to 5OO mg/dL Cholesterol 149 <200 mg/dL Desirable Cholesterol: less than 200 mg/dL Borderline High Cholesterol: 200-239 mg/dL High Cholesterol: greater than 239 mg/dL LDL Cholesterol Calculated 86 <100 mg/dL Desirable LDL: less than 100 mg/dL Near Optimal/Above Optimal LDL: 110-129 mg/dL Borderline High LDL: 130-159 mg/dL High LDL: 160-189 mg/dL Very High LDL: greater than or equal to 190 mg/dL HDL Cholesterol 47 >40 mg/dL Desirable HDL: greater than 40 mg/dL Note: This HDL assay may give artificially low results in patients with liver disease. Vitamin D 25-OH Total Reviewed date:04/02/2025 12:47:11 PM Interpretation: Performing Lab:[address] [phone] Notes/Report: Vitamin D 25-OH Total 19.5 >30 ng/mL Health Based Reference Values* < 20 ng/mL Deficient 20-30 ng/mL Insufficient > 30 ng/mL Sufficient *Brian HENDERSON. N Engl J Med. 2007;357:266-280 There is no well-established upper level of normal vitamin D levels. Some laboratories use 50 ng/mL as an upper limit of normal. However, toxicity is patient-dependent and may occur at any level. Careful correlation with the patient's presentation is necessary and, if there is concern for vitamin D toxicity, treatment should be considered irrespective of the serum level. Care must be taken in interpreting Vitamin [...] confirmed with another method such as LC-MS/MS. Hemoglobin A1c Reviewed date:04/02/2025 12:46:35 PM Interpretation: Performing Lab:[address] [phone] Notes/Report: Hemoglobin A1c % 5.5 <6.0 % [...] average glucose, using the formula of the C6P-[place] Average Glucose study (ADAG), Diabetes Care, Vol.31,#8, Dec. 2007 REASON FOR VISIT yearly fasting labs Immunizations Vaccine Route Administration Date Status Comme nts Influenza High Dose IM Intramuscular 04/02/2025 Administer ed Encounters Encounter Location Date Provider Diagnosis Juan Quarles MD [address] [place] [phone] 04/02/2025 Juan Quarles Blood tests for rout ine general physical examination Z00.00 ; Encounter for administration of vaccine Z23 ; Prediabetes R73.03 ; Vitamin D deficiency E55.9 ; Hypercholesteremia E78.00 and Essential hypertension I10 Assessments Encounter Date Diagnosis (ICD Code) Assessment Notes Treatment Notes Treatment Clinical Notes Section Notes 04/02/2025 Blood tests for routine general physical examination (ICD-10 - Z00.00) 04/02/2025 Encounter for administration of vaccine (ICD-10 - Z23) 04/02/2025 Prediabetes (ICD-10 - R73.03) 04/02/2025 Vitamin D deficiency (ICD-10 - E55.9) 04/02/2025 Hypercholesteremia (ICD-10 - E78.00) 04/02/2025 Essential hypertensi on (ICD-10 - I10) Plan Of Treatment Pending Test Test Name Order Date Complete Blood Count Auto Diff 5 Comprehensive [place]. Panel Fast 5 Microalbumin, Random 04/02/2025 UA ClnCatch+Micro w/rflx Cult 04/02/2025 Next Appt Details Provider Name:Juan Ortez ier, 04/07/2025 01:00:00 PM, [address], [address], [place], [place], [id number], Progress Notes * Cara OLSONB:1940 (84 yo F)Acc No.[id number]:04/02/2025 Progress Note Patient: Cara CASTRO Provider: Syed Quarles MD :1940 A ge:84 Y S ex:Female Date:04/02/2025 Address:[id number] Subjective: * Chief Complaints: * 1 . Yearly fasting labs. * Medical History: Objective: * Vitals: Assessment: * Assessment: 1. E ncounter for administration of vaccine - Z23 (Primary) 2 . B lood tests for routine general physical examination - Z00.00 3 . P rediabetes - R73.03? 4. V itamin D deficiency - E55.9 5 . H ypercholesteremia - E78.00 6 . E ssential hypertension - I10 Plan: * Treatment: 2. P rediabetes L AB: Complete Blood Count Auto Diff (Collection Date & Time - 04/02/2025 07:00 AM) L AB: Comprehensive [place]. Panel Fast L AB: Microalbumin, Random (Collection Date & Time - 04/02/2025 07:00 AM) L AB: UA ClnCatch+Micro w/rflx Cult (Collection Date & Time - 04/02/2025 07:00 AM) L AB: Lipid Panel (Collection Date & Time - 04/02/2025 07:00 AM) L AB: Vitamin D 25-OH Total (Collection Date & Time - 04/02/2025 07:00 AM) L AB: Hemoglobin A1c (Collection Date & Time - 04/02/2025 07:00 AM) 3. V itamin D deficiency L AB: Complete Blood Count Auto Diff (Collection Date & Time - 04/02/2025 07:00 AM) L AB: Comprehensive [place]. Panel Fast L AB: Microalbumin, Random (Collection Date & Time - 04/02/2025 07:00 AM) L AB: UA ClnCatch+Micro w/rflx Cult (Collection Date & Time - 04/02/2025 07:00 AM) L AB: Lipid Panel (Collection Date & Time - 04/02/2025 07:00 AM) L AB: Vitamin D 25-OH Total (Collection Date & Time - 04/02/2025 07:00 AM) L AB: Hemoglobin A1c (Collection Date & Time - 04/02/2025 07:00 AM) 4. H ypercholesteremia L AB: Complete Blood Count Auto Diff (Collection Date & Time - 04/02/2025 07:00 AM) L AB: Comprehensive [place]. Panel Fast L AB: Microalbumin, Random (Collection Date & Time - 04/02/2025 07:00 AM) L AB: UA ClnCatch+Micro w/rflx Cult (Collection Date & Time - 04/02/2025 07:00 AM) L AB: Lipid Panel (Collection Date & Time - 04/02/2025 07:00 AM) L AB: Vitamin D 25-OH Total (Collection Date & Time - 04/02/2025 07:00 AM) L AB: Hemoglobin A1c (Collection Date & Time - 04/02/2025 07:00 AM) 5. E ssential hypertension L AB: Complete Blood Count Auto Diff (Collection Date & Time - 04/02/2025 07:00 AM) L AB: Comprehensive [place]. Panel Fast L AB: Microalbumin, Random (Collection Date & Time - 04/02/2025 07:00 AM) L AB: UA ClnCatch+Micro w/rflx Cult (Collection Date & Time - 04/02/2025 07:00 AM) L AB: Lipid Panel (Collection Date & Time - 04/02/2025 07:00 AM) L AB: Vitamin D 25-OH Total (Collection Date & Time - 04/02/2025 07:00 AM) L AB: Hemoglobin A1c (Collection Date & Time - 04/02/2025 07:00 AM) * Immunizations: Influenza High Dose : 0.5 mL (Dose No:1) (Route: Intramuscular) given by Zoe Boyd , Office Staff on Left Deltoid * Procedure Codes: 3 6415 VENIPUNCT, ROUTINE*, 68808 FLU VACC PRSV FREE INC ANTIG, G0008 ADMN FLU VAC NO FEE SCHED SAME DAY * * The named appointment provid er may or may not be the originator of this progress note, and it is not deemed complete until electronically signed by the appointment provider. Sign off status: Pending * Provider: Syed Quarles MD Date: 06/02/2024 Generated for Rocky cunningham/Angella/Sussy on: 06/02/2024 02:23 PM EST
[2025-04-02 11:23] LABS: MANUAL DIFF FLAG NO
[2025-04-02 11:28] LABS: Hematocrit 36.9 % (37.0-47.0); Hemoglobin 11.4 g/dl (12.0-16.0); Imm Gran Abs Auto 0.02 X10*3/uL (0.00-0.03); Imm Gran Pct Auto 0.4 % (0.0-0.4); Lymphocytes Absolute Auto 1.6 X10*3/uL (1.2-4.9); Mean Corpuscular HGB Conc 30.9 g/dl (31.0-35.0); Mean Corpuscular Hemoglobin 28.2 pg (27.0-33.0); Mean Corpuscular Volume 91.3 fL (80.0-98.0); NRBC Abs Auto 0.000 X10*3/uL (0.0-0.012); NRBC Pct Auto 0.0 /100WBC (0.0-0.2); Platelet Count 294 X10*3/uL (160-400); Red Blood Count 4.04 X10*6/uL (4.20-5.50); White Blood Count 5.4 X10*3/uL (4.8-10.8)
[2025-04-02 11:31] LABS: Appearance Urine Clear; Glucose Urine UA Negative (Negative); PH 6.0 (5.0-9.0); Specific Gravity - Urine 1.025 (1.005-1.025)
[2025-04-02 11:49] LABS: Alanine Aminotransferase 11 U/L (0-31); Albumin Level 4.1 g/dL (3.5-5.0); Alkaline Phosphatase 124 U/L (39-117); Anion Gap 10 (12-20); Aspartate Amino Transferase 23 U/L (5-31); Blood Urea Nitrogen 26 mg/dL (9-16); Calcium 9.3 mg/dL (8.4-10.2); Carbon Dioxide 29 mmol/L (22-29); Chloride 106 mmol/L (96-108); Cholesterol 149 mg/dL (<200); Estimated Glomerular Filt Rate > 60; HDL Cholesterol 47 mg/dL (>40); Potassium 4.2 mmol/L (3.3-5.1); Sodium 141 mmol/L (135-145); Total Protein 6.9 g/dL (6.5-8.0); Triglycerides 80 mg/dL (<150)
[2025-04-02 12:09] LABS: Microalbum/Creatinine Ratio Ur 5.9 ug/mg cr (<30)
--- OUTSIDE RECORDS SUMMARY | 2025-04-02 14:23 | XMS_ITS | Patient Health Record ---
Author Organization [facility] Address [address] [place] [address] Care Team Providers Care Park Interpretive Specialist Name Role Phone Juan Quarles MD Primary Care Provider Agustín Alvarez Unavailable [phone] Allergies Allergen (clinical drug ingredient) Drug/Non Drug [...] Once a day; Duration: 30 day(s) Not-Taking [place] 3-6-9 Complex as directed Orally Not-Taking Aspirin 81 MG 1 tablet Orally Once a day; Duration: 30 day(s) Active Lisinopril 2.5 MG 1 tablet Orally Once a day; Duration: 30 day(s) Active Immunizations Vaccine Route Administration Date Status Comme nts COVID-19 Pfizer BioNTArlettie Vaccine Unknown 07/13/2020 Administered 1st 06/22/2020 2nd [...] Problem Acquired hammer toe of right foot (0660671465133 105) Other hammer toe(s) (acquired), right foot (M20.41) Active confirmed Problem Acquired hammer toe of left foot (5423928707066 103) Other hammer toe(s) (acquired), left foot (M20.42) Active confirmed Plan Of Treatment Pending Test Test Name Order Date X ray : Foot, left 2V 03/06/2012 X ray : Foot, right 2V 03/06/2012 [id number] Boot/Pneumatic 04/17/2012 Insurance Providers Payer Name Payer Address Payer Phone Subscriber Number Group Number Insured Name Patient Relationship to Insured Coverage Start Date Coverage End Date A[employer] Medicare Complete [address] [address] [place] [address] [id number] Larry Cara Self - patient is the insured Medical [...]
--- OUTSIDE RECORDS SUMMARY | 2025-04-02 14:23 | XMS_ITS | Patient Health Record ---
Author Organization [facility] Address [address] [place] [address] Care Team Providers Care Educational Audiologist Name Role Phone Juan Quarles MD Primary Care Provider Bobby Leon [phone] Allergies Allergen (clinical drug ingredient) Drug/Non Drug [...] Problem Status W/U Status Risk Notes Problem Screening for malignant neoplasm of colon (012394344) Encounter for screening for malignant neoplasm of colon (Z12.11) Active confirmed Problem History of adenomatous polyp of colon (287363798) History of adenomatous polyp of colon (Z86.010) Active confirmed Problem Preprocedural examination (279269540805014) Preprocedural examination (Z01.818) Active confirmed Problem Pre-procedure evaluation check (985085067) Pre-procedural examination (Z01.818) Active confirmed Problem Essential hypertension (73545268) Hypertension, unspecified type (I10) Active confirmed Plan Of Treatment Future Test Test Name Order Date COLONOSCOPY 03/27/2013 COLONOSCOPY 02/12/2019 Insurance Providers Payer Name Payer Address Payer Phone Subscriber Number Group Number Insured Name Patient Relationship to Insured Coverage Start Date Coverage End Date A[employer] MEDI COMP (REFERR AL REQUIRE D) [address] [address] [place] [address] [phone] [id number] RUTH OLSON Self - patient is the insured Medical (General) History Medical History History ICD Code Psoriasis Denies HI,DM,CVA,Lung disease,renal dise ase Colonoscopy in 2008 with [...]
--- OUTSIDE RECORDS SUMMARY | 2025-04-02 14:23 | XMS_ITS | Patient Health Record ---
Author Organization Juan Quarles MD Address [address] [place], [place] [id number] Care Team Providers Care Fashion Editor Name Role Phone Juan Quarles Primary Care Provider Allergies Allergen (clinical drug ingredient) Drug/Non Drug Allergy documented on EMR Reaction Allergy Type Onset Date Status naproxen Naprosyn hives Drug Allergy Active Results Component Value Reference Range Notes Liver Panel Reviewed date:09/23/2024 04:55:24 PM Interpretation: Performing Lab:[facility], [address] [place] [phone] Notes/Report: Bilirubin Total 0.6 0.0-1.0 mg/dL Bilirubin Direct 0.2 0.0-0.5 mg/dL Aspartate Amino Transferase 25 5-31 U/L Alanine Aminotransferase 13 0-31 U/L Total Protein 6.9 6.5-8.0 g/dL Albumin Level 4.1 3.5-5.0 g/dL Alkaline Phosphatase 102 39-117 U/L Glucose Fasting Reviewed date:09/23/2024 04:51:08 PM Interpretation: Performing Lab:[facility], [address] [place] [phone] Notes/Report: Glucose Fasting 96 60-99 mg/dL Lipid Panel with Reflex Reviewed date:09/23/2024 04:54:51 PM Interpretation: Performing Lab:[facility], [address] [place] [phone] Notes/Report: Triglycerides 94 <150 mg/dL Desirable Triglyceride: [...] A1c Reviewed date:09/23/2024 12:05:10 PM Interpretation: Performing Lab:[address] [phone] Notes/Report: Hemoglobin A1c % 5.5 <6.0 % [...] average glucose, using the formula of the I6S-Vntdbue Average Glucose study (ADAG), Diabetes Care, Vol.31,#8, Dec. 2007 Complete Blood Count Auto Di ff (Not yet reviewed by provider) Interpretation: Performing Lab:[address] [address] Notes/Report: White Blood Count 5.4 4.8-10.8 X10*3/uL [...] 0.0-0.2 /100WBC Neutrophils Absolute Auto 2.9 2.0-8.3 x10*3/uL Imm Gran Abs Auto 0.02 0.00-0.03 X10*3/uL Lymphocytes Absolute Auto 1.6 1.2-4.9 X10*3/uL Monocytes Absolute Auto 0.6 0.1-1.2 X10*3/uL Eosinophils Absolute Auto 0.3 0.0-0.4 X10*3/uL Basophils Absolute Auto 0.0 0.0-0.2 X10*3/uL NRBC Abs Auto 0.000 0.0-0.012 X10*3/uL Microalbumin, Random (Not ye t reviewed by provider) Interpretation: Performing Lab:[facility], [address] [place] [phone] Notes/Report: Creatinine Urine 134.50 Microalbumin Urine 8.0 Microalbum/Creatinine Ratio Ur 5.9 <30 ug/mg cr Albumin/Creatinine Ratio Reference Ranges: Normal: < 30 ug/mg creatinine Microalbuminuria: 30 - 300 ug/mg creatinine Clinical Albuminuria: > 300 ug/mg creatinine UA ClnCatch+Micro w/rflx Cul t (Not yet reviewed by provider) Interpretation: Performing Lab:[facility], [address] [place] [phone] Notes/Report: Urine, Clean Catch Color Urine Yellow Appearance Urine Clear PH 6.0 5.0-9.0 Glucose Urine UA Negative Negative mg/dL Urine Blood Negative Negative Specific [place] - Urine 1.025 1.005-1.025 Urine Protein Negative [...] Panel Reviewed date:04/02/2025 12:47:01 PM Interpretation: Performing Lab:[facility], [address] [place] [phone] Notes/Report: Triglycerides 80 <150 mg/dL Desirable Triglyceride: [...] Total Reviewed date:04/02/2025 12:47:11 PM Interpretation: Performing Lab:[facility], [address] [place] [phone] Notes/Report: Vitamin D 25-OH Total 19.5 >30 [...] A1c Reviewed date:04/02/2025 12:46:35 PM Interpretation: Performing Lab:[facility], [address] [place] [phone] Notes/Report: Hemoglobin A1c % 5.5 <6.0 % [...] average glucose, using the formula of the W4F-Wmtqiyc Average Glucose study (ADAG), Diabetes Care, Vol.31,#8, 2007 Candelario Freeman Reviewed date:09/23/2024 12:03:16 PM Interpretation: Performing Lab:[facility], [address] [place] [phone] Notes/Report: Candelario Freeman See Note Specimen held untested for 24 hours; Call to request Chemistry testing. Complete Blood Count Auto Di ff Reviewed date:12/29/2024 05:51:05 PM Interpretation: Performing Lab:[facility], [address] [place] [phone] Notes/Report: White Blood Count 5.4 4.8-10.8 X10*3/uL [...] Auto 0.000 0.0-0.012 X10*3/uL Prothrombin Time INR Reviewed date:12/29/2024 05:51:17 PM Interpretation: Performing Lab:[address] [phone] Notes/Report: Prothrombin Time 10.7 10.9-12.4 [employer] [...] valves: 2.5 - 3.5 Comprehensive Met. Panel Reviewed date:12/29/2024 05:51:41 PM Interpretation: Performing Lab:[facility], [address] [place] [phone] Notes/Report: Sodium 145 135-145 mmol/L Potassium 4.3 [...] g/dL Alkaline Phosphatase 113 39-117 U/L Magnesium Reviewed date:12/29/2024 05:48:33 PM Interpretation: Performing Lab:[facility], [address] [place] [phone] Notes/Report: Magnesium 2.0 1.6-2.6 mg/dL Troponin-I High Sensitivity Reviewed date:12/29/2024 05:52:24 PM Interpretation: Performing Lab:[facility], [address] [place] [phone] Notes/Report: Troponin-I High Sensitivity 4.7 <3.5-17.0 ng/L The Leon high sensitivity Troponin-I results should be used in conjunction with other diagnostic information such as ECG, clinical observations and information, and patient symptoms to aid in the diagnosis of CA. C Reactive Protein Reviewed date:12/29/2024 05:52:13 PM Interpretation: Performing Lab:[facility], [address] [place] [phone] Notes/Report: C Reactive Protein 0.32 < or = 0.50 mg/dL B Type Natriuretic Peptide Reviewed date:12/29/2024 05:52:03 PM Interpretation: Performing Lab:[facility], [address] [place] [phone] Notes/Report: B Type Natriuretic Peptide 51 <100 pg/mL Lipase Reviewed date:12/29/2024 05:45:52 PM Interpretation: Performing Lab:[facility], [address] [place] [phone] Notes/Report: Lipase 20 8-78 U/L CT head/brain wo con Reviewed date:12/30/2024 06:17:41 PM Interpretation: Performing Lab: Notes/Report: [address] [address] [address] Scan Report Signed Patient: Cara Juarez MR#: [id number] : 1940 Acct:[id number] Age/Sex: 84 / F ADM Date: 12/29/24 Loc: HO.ED Attending Dr: Ordering Physician: Eliezer Evans MD Date of Service: 12/29/24 Procedure(s): CT head/brain wo IV con Accession Number(s): [id number] cc: Juan Quarles MD; Eliezer Evans MD Report Number: [id number]: Total DLP = 636.00 mGy-cm CLINICAL HISTORY: headache, nausea CT head without contrast Comparison: None provided Findings: No acute intracranial hemorrhage, transcortical infarct, hydrocephalus or mass effect. Diffuse volume loss. Periventricular and subcortical white matter hypoattenuation likely chronic small-vessel ischemic changes. Chronic lacunar infarct in the left basal ganglia. Intracranial atherosclerosis. Mucosal thickening in the right maxillary sinus. The orbits are within normal limits. No skull fracture. IMPRESSION: 1. No acute intracranial findings. This document has been electronically signed by: Grazyna Villalobos MD on 12/29/2024 18:18:37 Dictated By: Grazyna Villalobos MD Signed By: <Electronically signed by Grazyna Villalobos MD in OV> 12/29/241818 DD/ 17 TD/TT: 12/29/241817 Outboard Motor Tester: [address] [address] [address] Scan Report Signed Patient: Cara Juarez MR#: [id number] : 1940 Acct:[id number] Age/Sex: 84 / F ADM Date: 12/29/24 Loc: HO.ED Attending Dr: Ordering Physician: Eliezer Evans MD Date of Service: 12/29/24 Procedure(s): CT head/brain wo IV con Accession Number(s): [id number] cc: Juan Quarles MD; Eliezer Evans MD Report Number: [id number]: Total DLP = 636.00 mGy-cm CLINICAL HISTORY: headache, nausea CT head without contrast Comparison: None provided Findings: No acute intracrania l hemorrhage, transcortical infarct, hydrocephalus or mass effect. Diffuse volume loss. Periventricular and subcortical white matter hypoattenuation likely chronic small-vessel ischemic changes. Chronic lacunar infa rct in the left basal ganglia. Intracranial atherosclerosis. Mucosal thickening i n the right maxillary sinus. The orbits are withi n normal limits. No skull fracture. IMPRESSION: 1. No acute intracranial findings. This document has be en electronically signed by: Grazyna Villalobos MD on 12/29/2024 18:18:37 Dictated By: Grazyna Villalobos MD Signed By: <Electronically signed by Grazyna Villalobos MD in OV> 12/29/241818 DD/ 17 TD/TT: 12/29/241817 Outboard Motor Tester: MM tomosynthesis screening B I Reviewed date:03/24/2025 12:41:09 PM Interpretation: Performing Lab: Notes/Report: [facility] [address] [place] [address] Mammography Report Signed Patient: Cara Juarez MR#: [id number] : 1940 Acct:[id number] Age/Sex: 84 / F ADM Date: 03/20/25 Loc: HO.MAMMO Attending Dr: Juan Quarles MD Ordering Physician: Juan Quarles MD Results: 1Ne gative Date of Service: 03/20/25 Follow Up: 1 Year From Orig inal Mammogram Procedure(s): MM tomosynthesis screening BI Accession Number(s): [id number] cc: Juan Quarles MD Reason For Exam: SCREENING EXAMINATION: MM SCREENING DIGITAL BREAST TOMOSYNTHESIS, BILATERAL CLINICAL INFORMATION: Screening. Asymptomatic. COMPARISON: Mammography: Comparison is made with available priors TECHNIQUE: Digital breast mammography with tomosynthesis is performed in both the craniocaudal and mediolateral oblique views along with computer-aided detection (CAD). FINDINGS: There are scattered areas of fibroglandular density. There are no significant masses, abnormal calcifications, or other abnormalities. MM/MM tomosynthesis screening BI IMPRESSION: No mammographic evidence of malignancy. ASSESSMENT: BI-RADS Category 1: Negative RECOMMENDATION: Routine annual mammography screening. 1 year F/U This examination should not preclude the clinical evaluation of a suspicious palpable abnormality. This patient's information was entered into a reminder system with a target due date for their next mammogram. Electronically signed by: Renuka Canas DO 03/24/2025 12:06 PM [facility] Dictated By: Renuka Canas DO Signed By: <Electronically signed by Renuka Canas DO in OV> 03/24/25 1206 DD/ 1310 TD/TT: 03/20/25 1330 Outboard Motor Tester: Jae [facility] [address] [place] [address] Mammography Report Signed Patient: Cara Juarez MR#: [id number] : 1940 Acct:[id number] Age/Sex: 84 / F ADM Date: 03/20/25 Loc: HO.MAMMO Attending Dr: Juan Quarles MD Ordering Physician: Juan Quarles MD Results: 1Ne gative Date of Service: 03/20/25 Follow Up: 1 Year From [facility] Mammogram Procedure(s): MM tomosynthesis screening BI Accession Number(s): [id number] cc: Juan Quarles MD Reason For Exam: SCREENING EXAMINATION: MM SCREENING DIGITAL BREAST TOMOSYNTHESIS, BILATERAL CLINICAL INFORMATION: Screening. Asymptomatic. COMPARISON: Mammography: Compari son is made with available priors TECHNIQUE: Digital breast mammography with tomosynthesis is performed in both the craniocaudal and mediolateral oblique views along with computer-aided detection (CAD). FINDINGS: There are scattered areas of fibroglandular density. There are no significant masses, abnormal calcifications, or other abnormalities. MM/MM tomosynthesis screening BI IMPRESSION: No mammographic evidence of malignancy. ASSESSMENT: BI-RADS Category 1: Negative RECOMMENDATION: Routine annual mammography screening. 1 year F/U This examination mariann uld not preclude the clinical evaluation of a suspicious palpable abnormality. This patient's information was entered into a reminder system with a target due date for their next mammogram. Electronically selvin d by: Renuka Canas DO 03/24/2025 12:06 PM [facility] Dictated By: Renuka Canas DO Signed By: <Electronically signed by Renuka Canas DO in OV> 03/24/25 1206 DD/ 1310 TD/TT: 03/20/25 1330 Outboard Motor Tester: Jm Met. Panel (No t yet reviewed by provider) Interpretation: Performing Lab:[address] [address] Notes/Report: Sodium 141 135-145 mmol/L Potassium 4.2 3.3-5.1 mmol/L Chloride 106 96-108 mmol/L Carbon Dioxide 29 22-29 mmol/L Anion Gap 10 12-20 Blood Urea Nitrogen 26 9-16 mg/dL Creatinine 0.89 0.5-1.4 mg/dL Estimated Glomerular Filt Rate > 60 Chronic Kidney Disease: Estimated GFR < 60 mL/min/1.73m2 Severe Kidney Disease: Estimated GFR < 15 mL/min/1.73m2 Glucose Random 95 60-115 mg/dL Calcium 9.3 8.4-10.2 mg/dL Bilirubin Total 0.6 0.0-1.0 mg/dL Aspartate Amino Transferase 23 5-31 U/L Alanine Aminotransferase 11 0-31 U/L Total Protein 6.9 6.5-8.0 g/dL Albumin Level 4.1 3.5-5.0 g/dL Alkaline Phosphatase 124 39-117 U/L Hold Gold Reviewed date:04/02/2025 12:46:25 PM Interpretation: Performing Lab:[address] [address] Notes/Report: Hold Gold See Note Specimen held [...] a day for 30 days 09/05/2016 Not-Taking Atorvastatin Calcium 40 MG Take 1 tablet by mouth once daily for 90 Active Clobetasol Propionate 0.05 % 1 application [...] High Dose IM Intramuscular 03/25/2024 Administer ed Influenza High Dose IM Intramuscular 04/02/2025 Administer ed Fluarix Quadrivalent Unknown 05/09/2019 Refused [...] Problem Status W/U Status Risk Notes Problem 51723178 Age-related osteoporosis without current pathological fracture (M81.0) Active confirmed Problem 76281367 Vitamin D defici ency (E55.9) Active confirmed Problem 962977707 Essential tremor (G25.0) Active confirmed Problem Cerebral infarction (600150128) Cerebral infarction, unspecified (I63.9) Active confirmed Problem 9833402 Other psoriasis (L40.8) Active confirmed Problem 135698291 Rectocele (N81.6) Active confirmed Problem 06643883 Essential hypertension (I10) Active confirmed Problem 7815629 Psoriasis (L40.9) Active confirmed Problem 900453399 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 Problem 185552422 Vaginal bleeding (N93.9) Active confirmed Problem 886728814 Prediabetes (R73.03) Active confirmed Problem 984919042 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) Active confirmed Problem 19845791 Hypercholesterem ia (E78.00) Active confirmed Problem 8963949692643 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) Active confirmed Problem 329258644 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) Active confirmed Vital Signs Blood pressure diastolic 66 mm Hg 10/30/2024 Height 60 in 10/30/2024 Blood pressure systolic 128 mm Hg 10/30/2024 Weight 135 lbs 10/30/2024 BMI 26.36 kg/m2 10/30/2024 Encounters Encounter Location Date Provider Diagnosis Juan Quarles MD [address] [place] [id number] 09/23/2024 Juan Quarles Prediabetes R73.03 a nd Hypercholesteremia E78.00 Juan Quarles MD [address] [place] [id number] 04/02/2025 Juan Quarles Blood tests for rout ine general physical examination Z00.00 ; Encounter for administration of vaccine Z23 ; Prediabetes R73.03 ; Vitamin D deficiency E55.9 ; Hypercholesteremia E78.00 and Essential hypertension I10 Juan Qualres MD [address] [place] [address] Drive [address] [place] [id number] 09/30/2024 Juan Quarles Prediabetes R73.03 a nd Vaginal bleeding N93.9 Juan Quarles MD [address] [place] [id number] 10/30/2024 Juan Quarles Essential hypertensi on I10 and Vaginal bleeding N93.9 Juan Quarles MD [address] [place] [id number] 09/30/2024 Juan Quarles MD [address] [place] [id number] 12/30/2024 Juan Quarles Assessments Encounter Date Diagnosis (ICD Code) Assessment Notes Treatment Notes Treatment Clinical Notes Section Notes 09/23/2024 Prediabetes (ICD-10 - R73.03) 04/02/2025 Blood tests for routine general physical examination (ICD-10 - Z00.00) 04/02/2025 Encounter for administration of vaccine (ICD-10 - Z23) 09/30/2024 Prediabetes (ICD-10 - R73.03) stable, no need for medication at this time 09/30/2024 Vaginal bleeding (ICD-10 - N93.9) referral to dr william at [facility]/ need notes from [facility] this [place]. daughter will get her appt with [facility] 10/30/2024 Essential hypertensi on (ICD-10 - I10) 10/30/2024 Vaginal bleeding (ICD-10 - N93.9) has resolved and was evaluated at the [facility] 09/23/2024 Hypercholesteremia (ICD-10 - E78.00) 04/02/2025 Prediabetes (ICD-10 - R73.03) 04/02/2025 Vitamin D deficiency (ICD-10 - E55.9) 04/02/2025 Hypercholesteremia (ICD-10 - E78.00) 04/02/2025 Essential hypertensi on (ICD-10 - I10) Plan Of Treatment Pending Test Test Name Order Date Electrocardiogram (EKG) 11/17/2016 VITAMIN D, 25-HYDROXY, LC/MS/MS 05/19/20 13 BONE DENSITY DEXA 01/04/2021 Complete Blood Count Auto Diff 5 Comprehensive Met. Panel 04/02/2025 Comprehensive [place]. Panel Fast 5 Microalbumin, Random 04/02/2025 UA ClnCatch+Micro w/rflx Cult 04/02/2025 Next Appt Details Provider Name:Juan Wilson Pérez ier, 04/07/2025 01:00:00 PM, [address] [facility], [address], [place], [place], [phone], Insurance Providers Payer Name Payer Address Payer Phone Subscriber Number Group Number Insured Name Patient Relationship to Insured Coverage Start Date Coverage End Date [facility] are [employer] [address] [address] [place] [phone] [id number] Cara Juarez Self - patient is the insured Medical (General) History Medical History History ICD Code is able to take aspirin without difficul ty colonoscopy due 2012 2013 done with flat polyps adenoma
== END 2025-04-02 11:19 | disposition home or self-care (01) ==
LOC: HO.LNP 11:18
PROVIDERS: Visit Provider Internal Medicine
DX: Z00.00 Encounter for general adult medical examination without abnormal findings (principal); I10 Essential (primary) hypertension; R73.03 Prediabetes; E55.9 Vitamin D deficiency, unspecified; E78.00 Pure hypercholesterolemia, unspecified
CPT/HCPCS: 80053; 80061; 81001; 82043; 82306; 82570; 83036; 85025